=== PATIENT | male | born 1995 | race Caucasian/White ===

== ENCOUNTER 2018-10-17 21:36 | Emergency (ER) | payer OTHER ==
[2018-10-17 21:57] VITALS: RESP 18
--- NOTE | 2018-10-17 22:45 | ED ---
Psych HPI - General Chief Complaint: Psychiatric Symptoms Stated Complaint: Mental Health Time Seen by Provider: 10/17/18 22:02 Source: patient Mode of arrival: ambulatory - History of Present Illness Initial Comments: 23-year-old male patient presents to the emergency department today for complaints of increased depression and anxiety. Patient states that he was diagnosed several years ago with depression, bipolar, and schizophrenia. States his been 3 years since his taken any medication for these conditions. Patient states that over the last couple of weeks his symptoms have been worsening. States he is having increasing frequency of suicidal ideation. States that he cannot see a gun without thinking of killing himself with it. Patient states he does not have guns in his home however his) to have them he does have access to them. He denies any alcohol or drug use. States that he does occasionally have auditory hallucinations this on my conversations other people are having. States that he does often see a shadow a figure out of the corner of his eye that he believes is a visual hallucination. States he is having difficulty sleeping due to racing thoughts. Denies any current physical symptoms or concerns. - Related Data Home Medications Medication Instructions Recorded Confirmed Sulfamethox-Tmp 800-160Mg [Bactrim 2 tab PO Q12HR 05/28/16 05/28/16 Ds] Allergies Allergy/AdvReac Type Severity Reaction Status Date / Time ceftriaxone sodium Allergy Swelling Verified 05/28/16 20:14 [From Rocephin] azithromycin AdvReac Unknown Verified 05/28/16 20:14 Review of Systems ROS Statement: Those systems with pertinent positive or pertinent negative responses have been documented in the HPI. ROS Other: All systems not noted in ROS Statement are negative. Past Medical History Past Medical History: No Reported History History of Any Multi-Drug Resistant Organisms: None Reported Additional Past Surgical History / Comment(s): bilateral knee arthroscopically for torn meniscus Past Psychological History: Bipolar, Depression, Schizophrenia Smoking Status: Current every day smoker Past Alcohol Use History: Abuse, Daily Past Drug Use History: Marijuana - Past Family History Father Family Medical History: Unable to Obtain Additional Family Medical History / Comment(s): Father is 42 years of age and has questionable bipolar disorder. Patient states he has anger issues. Mother Family Medical History: Unable to Obtain Additional Family Medical History / Comment(s): Mother is 37 years old and has had problems with bowel surgeries, liver failure, bipolar disorder. Brother(s) Additional Family Medical History / Comment(s): Patient has 3 half brothers and 4 half-sisters. Patient states they all have bipolar disorder, schizophrenia or depression. She does not have any children of his own. General Exam Limitations: no limitations General appearance: alert, in no apparent distress, other (This is a well- developed, well-nourished male patient in no acute distress. Vital signs upon presentation are temperature 98.9F, pulse 108, respirations 18, blood pressure 182/136, pulse ox 98% on room air.) Eye exam: Present: normal appearance, PERRL, EOMI. Absent: scleral icterus, conjunctival injection, periorbital swelling Respiratory exam: Present: normal lung sounds bilaterally Cardiovascular Exam: Present: regular rate, normal rhythm, normal heart sounds. Absent: systolic murmur, diastolic murmur, rubs, gallop, clicks Neurological exam: Present: alert, oriented X3, CN II-XII intact Psychiatric exam: Present: normal affect, normal mood Skin exam: Present: warm, dry, intact, normal color. Absent: rash Course Vital Signs 10/17/18 10/18/18 21:51 00:51 Temperature 98.9 F 97.7 F Pulse Rate 108 H 70 Respiratory 18 18 Rate Blood Pressure 182/136 133/72 O2 Sat by Pulse 98 97 Oximetry Medical Decision Making - Medical Decision Making 23-year-old male patient presents to the emergency department today for evaluation of suicidal ideation and increased depression. Physical examination was unremarkable. Patient was seen and evaluated by emergency psychiatric services. It is felt that he does not meet inpatient criteria at this time and is safe for discharge home. I did have a discussion with the patient, he is able to contract for safety. He does have the phone number for [facility] and does plan to call Friday morning for intake. Return parameters were discussed in detail. He verbalizes understanding and agrees with this plan. - Lab Data Lab Results 10/17/18 Range/Units 20:34 Urine Opiates Screen Not Detected (NotDetected) Ur Oxycodone Screen Not Detected (NotDetected) Urine Methadone Screen Not Detected (NotDetected) Ur Propoxyphene Screen Not Detected (NotDetected) Ur Barbiturates Screen Not Detected (NotDetected) U Tricyclic Antidepress Not Detected (NotDetected) Ur Phencyclidine Scrn Not Detected (NotDetected) Ur Amphetamines Screen Detected H (NotDetected) U Methamphetamines Scrn Detected H (NotDetected) U Benzodiazepines Scrn Detected H (NotDetected) Urine Cocaine Screen Not Detected (NotDetected) U Marijuana (THC) Screen Detected H (NotDetected) Disposition Clinical Impression: Suicidal ideation, Depression Disposition: HOME SELF-CARE Condition: Good Instructions: Depression (ED), Suicide Prevention (ED) Additional Instructions: Follow-up outpatient with complete mental health as you have planned. Return immediately for any new, worsening, or concerning symptoms. Is patient prescribed a controlled substance at d/c from ED?: No Referrals: None,Stated [Primary Care Provider] - 1-2 days Time of Disposition: 00:42
[2018-10-17 22:54] LABS: Amphetamine Screen,Urine Detected (NotDetected); Barbiturate Screen,Urine Not Detected (NotDetected); Benzodiazepines Screen,Urine Detected (NotDetected); Cocaine Screen,Urine Not Detected (NotDetected); Methadone Screen, Urine Not Detected (NotDetected); Opiate Screen,Urine Not Detected (NotDetected); Oxycodone Screen, Urine Not Detected (NotDetected); Phencyclidine Screen,Urine Not Detected (NotDetected); Tricyclic Antidepressant,Urine Not Detected (NotDetected); Urn Cannabinoid Scrn Detected (NotDetected)
[2018-10-18 00:52] VITALS: BP 133/72; PULSE 70; TEMP 97.7
== END 2018-10-18 00:52 | disposition home or self-care (01) ==
LOC: EC 21:36
DX: F32.9 Major depressive disorder, single episode, unspecified (principal); R45.851 Suicidal ideations; F17.200 Nicotine dependence, unspecified, uncomplicated; Z88.1 Allergy status to other antibiotic agents
CPT/HCPCS: 80306; 99284

== ENCOUNTER 2018-10-21 21:55 | Emergency (ER) | payer OTHER ==
--- NOTE | 2018-10-21 22:23 | ED ---
Psych HPI - General Chief Complaint: Psychiatric Symptoms Stated Complaint: depression Time Seen by Provider: 10/21/18 22:22 Source: patient, RN notes reviewed, old records reviewed Mode of arrival: ambulatory - History of Present Illness Initial Comments: This is a 20-year-old male the ER for evasive acute psychosis, patient comes in today, doesn't want to harm to kill himself. Seen in ER recently for same issues, denies recent drug or alcohol abuse MD Complaint: suicidal ideation, other (Psychosis) -: unknown Associated Psychiatric Symptoms: depression History of same: Yes Quality: constant Improves With: none Worsens With: none Context: new medication(s) Associated Symptoms: denies other symptoms Treatments Prior to Arrival: none If Self Harm: admits thoughts of self harm, self-inflicted trauma - Related Data Home Medications Medication Instructions Recorded Confirmed No Known Home Medications 10/21/18 10/21/18 Allergies Allergy/AdvReac Type Severity Reaction Status Date / Time ceftriaxone sodium Allergy Swelling Verified 10/21/18 22:28 [From Rocephin] azithromycin AdvReac Unknown Verified 10/21/18 22:28 Review of Systems ROS Statement: Those systems with pertinent positive or pertinent negative responses have been documented in the HPI. ROS Other: All systems not noted in ROS Statement are negative. Past Medical History Past Medical History: No Reported History History of Any Multi-Drug Resistant Organisms: None Reported Additional Past Surgical History / Comment(s): bilateral knee arthroscopically for torn meniscus Past Psychological History: Bipolar, Depression, Schizophrenia Smoking Status: Current every day smoker Past Alcohol Use History: None Reported Past Drug Use History: Cocaine, Marijuana, Methamphetamine, Prescription Drug Abuse - Past Family History Father Family Medical History: Unable to Obtain Additional Family Medical History / Comment(s): Father is 42 years of age and has questionable bipolar disorder. Patient states he has anger issues. Mother Family Medical History: Unable to Obtain Additional Family Medical History / Comment(s): Mother is 37 years old and has had problems with bowel surgeries, liver failure, bipolar disorder. Brother(s) Additional Family Medical History / Comment(s): Patient has 3 half brothers and 4 half-sisters. Patient states they all have bipolar disorder, schizophrenia or depression. She does not have any children of his own. General Exam Limitations: no limitations General appearance: alert, in no apparent distress Head exam: Present: atraumatic, normocephalic, normal inspection Eye exam: Present: normal appearance, PERRL, EOMI. Absent: scleral icterus, conjunctival injection, periorbital swelling ENT exam: Present: normal exam, mucous membranes moist Neck exam: Present: normal inspection. Absent: tenderness, meningismus, lymphadenopathy Respiratory exam: Present: normal lung sounds bilaterally. Absent: respiratory distress, wheezes, rales, rhonchi, stridor Cardiovascular Exam: Present: regular rate, normal rhythm, normal heart sounds. Absent: systolic murmur, diastolic murmur, rubs, gallop, clicks GI/Abdominal exam: Present: soft, normal bowel sounds. Absent: distended, tenderness, guarding, rebound, rigid Extremities exam: Present: normal inspection, full ROM, normal capillary refill. Absent: tenderness, pedal edema, joint swelling, calf tenderness Back exam: Present: normal inspection Neurological exam: Present: alert, oriented X3, CN II-XII intact Psychiatric exam: Present: normal affect, normal mood Skin exam: Present: warm, dry, intact, normal color. Absent: rash Course Vital Signs 10/21/18 10/22/18 22:06 03:47 Temperature 98.6 F 98.2 F Pulse Rate 98 89 Respiratory 18 16 Rate Blood Pressure 117/77 119/72 O2 Sat by Pulse 100 100 Oximetry - Reevaluation(s) Reevaluation #1: 10/21/18 22:23 Medical clear for psychiatric evaluation Medical Decision Making - Medical Decision Making 20 female for evaluation by psychiatry, seen and evaluated, will transfer for inpatient psychiatric treatment - Lab Data Result diagrams: 10/22/18 02:16 10/22/18 00:55 Lab Results 10/21/18 10/22/18 10/22/18 Range/Units 22:45 00:55 02:16 WBC 10.9 H (3.8-10.6) k/uL RBC 5.39 (4.30-5.90) m/uL Hgb 15.6 (13.0-17.5) gm/dL Hct 46.6 (39.0-53.0) % MCV 86.4 (80.0-100.0) fL MCH 29.0 (25.0-35.0) pg MCHC 33.6 (31.0-37.0) g/dL RDW 12.6 (11.5-15.5) % Plt Count 285 (150-450) k/uL Neutrophils % 66 % Lymphocytes % 24 % Monocytes % 5 % Eosinophils % 2 % Basophils % 0 % Neutrophils # 7.3 (1.3-7.7) k/uL Lymphocytes # 2.6 (1.0-4.8) k/uL Monocytes # 0.6 (0-1.0) k/uL Eosinophils # 0.2 (0-0.7) k/uL Basophils # 0.1 (0-0.2) k/uL Sodium 141 (137-145) mmol/L Potassium 3.9 (3.5-5.1) mmol/L Chloride 104 (98-107) mmol/L Carbon Dioxide 26 (22-30) mmol/L Anion Gap 11 mmol/L BUN 13 (9-20) mg/dL Creatinine 0.85 (0.66-1.25) mg/dL Est GFR (CKD-EPI)AfAm >90 (>60 ml/min/1.73 sqM) Est GFR (CKD-EPI)NonAf >90 (>60 ml/min/1.73 sqM) Glucose 94 (74-99) mg/dL Calcium 9.9 (8.4-10.2) mg/dL Total Bilirubin 0.6 (0.2-1.3) mg/dL AST 20 (17-59) U/L ALT 24 (21-72) U/L Alkaline Phosphatase 65 (38-126) U/L Total Protein 7.6 (6.3-8.2) g/dL Albumin 4.7 (3.5-5.0) g/dL Salicylates <1.0 mg/dL Urine Opiates Screen Not Detected (NotDetected) Ur Oxycodone Screen Not Detected (NotDetected) Urine Methadone Screen Not Detected (NotDetected) Ur Propoxyphene Screen Not Detected (NotDetected) Acetaminophen <10.0 ug/mL Ur Barbiturates Screen Not Detected (NotDetected) U Tricyclic Antidepress Not Detected (NotDetected) Ur Phencyclidine Scrn Not Detected (NotDetected) Ur Amphetamines Screen Detected H (NotDetected) U Methamphetamines Scrn Detected H (NotDetected) U Benzodiazepines Scrn Detected H (NotDetected) Urine Cocaine Screen Not Detected (NotDetected) U Marijuana (THC) Screen Detected H (NotDetected) Serum Alcohol <10 mg/dL Disposition Clinical Impression: Depression, Suicidal ideation, Psychosis Disposition: TRANSFER TO PSYCH HOSP/UNIT Condition: Fair Is patient prescribed a controlled substance at d/c from ED?: No Referrals: None,Stated [Primary Care Provider] - 1-2 days
[2018-10-21 23:08] LABS: Amphetamine Screen,Urine Detected (NotDetected); Barbiturate Screen,Urine Not Detected (NotDetected); Benzodiazepines Screen,Urine Detected (NotDetected); Cocaine Screen,Urine Not Detected (NotDetected); Methadone Screen, Urine Not Detected (NotDetected); Opiate Screen,Urine Not Detected (NotDetected); Oxycodone Screen, Urine Not Detected (NotDetected); Phencyclidine Screen,Urine Not Detected (NotDetected); Tricyclic Antidepressant,Urine Not Detected (NotDetected); Urn Cannabinoid Scrn Detected (NotDetected)
[2018-10-22 01:56] LABS: ALT 24 U/L (21-72); AST 20 U/L (17-59); Acetaminophen <10.0 ug/mL; Albumin 4.7 g/dL (3.5-5.0); Alcohol <10 mg/dL; Alkaline Phosphatase 65 U/L (38-126); Anion Gap 11 mmol/L; Blood Urea Nitrogen 13 mg/dL (9-20); Calcium 9.9 mg/dL (8.4-10.2); Carbon Dioxide 26 mmol/L (22-30); Chloride 104 mmol/L (98-107); Glucose 94 mg/dL (74-99); Potassium 3.9 mmol/L (3.5-5.1); Salicylate <1.0 mg/dL; Sodium 141 mmol/L (137-145); Total Bilirubin 0.6 mg/dL (0.2-1.3); Total Protein 7.6 g/dL (6.3-8.2)
[2018-10-22 02:32] LABS: Basophils # (A) 0.1 k/uL (0-0.2); Basophils % (A) 0 %; Eosinophils # (A) 0.2 k/uL (0-0.7); Eosinophils % (A) 2 %; HCT 46.6 % (39.0-53.0); HGB 15.6 gm/dL (13.0-17.5); Lymphocytes # (A) 2.6 k/uL (1.0-4.8); Lymphocytes % (A) 24 %; MCHC 33.6 g/dL (31.0-37.0); MCV 86.4 fL (80.0-100.0); Mean Platelet Volume 6.6; Monocytes # (A) 0.6 k/uL (0-1.0); Monocytes % (A) 5 %; Neutrophils # (A) 7.3 k/uL (1.3-7.7); Neutrophils % (A) 66 %; Platelet Count 285 k/uL (150-450); RBC 5.39 m/uL (4.30-5.90); RDW 12.6 % (11.5-15.5); WBC 10.9 k/uL (3.8-10.6)
[2018-10-22 03:48] VITALS: BP 119/72; PULSE 89; RESP 16; TEMP 98.2
== END 2018-10-22 04:23 ==
LOC: EC 21:55
DX: F32.9 Major depressive disorder, single episode, unspecified (principal); F29 Unspecified psychosis not due to a substance or known physiological condition; R45.851 Suicidal ideations; F20.9 Schizophrenia, unspecified; F17.200 Nicotine dependence, unspecified, uncomplicated; Z81.8 Family history of other mental and behavioral disorders; Z88.1 Allergy status to other antibiotic agents
CPT/HCPCS: 36415; 80053; 80306; 80320; 83520; 85025; 99285

== ENCOUNTER 2020-10-17 12:42 | Emergency (ER) | payer BC, OTHER ==
[2020-10-17 12:46] VITALS: BP 127/72; PULSE 111; RESP 18; TEMP 98.7
--- NOTE | 2020-10-17 13:42 | ED ---
Male Urogenital HPI - General Chief complaint: Urogenital Stated complaint: L Testicle Pain Time Seen by Provider: 10/17/20 12:47 Source: patient, RN notes reviewed Mode of arrival: ambulatory Limitations: no limitations - History of Present Illness Initial comments: 25-year-old male presents emergency Department with chief complaint of left testicular pain. Patient states that it started primary yesterday but has been on and off. He states he feels slightly swollen. He has no complaints of dysuria hematuria and denies any concerns for STDs. Patient states that he had no trauma denies fevers or chills. - Related Data Previous Rx's Medication Instructions Recorded Ibuprofen [Motrin] 600 mg PO Q8HR PRN #20 tab 10/17/20 Allergies Allergy/AdvReac Type Severity Reaction Status Date / Time ceftriaxone sodium Allergy Swelling Verified 10/17/20 12:46 [From Rocephin] azithromycin AdvReac Unknown Verified 10/17/20 12:46 Review of Systems ROS Statement: Those systems with pertinent positive or pertinent negative responses have been documented in the HPI. ROS Other: All systems not noted in ROS Statement are negative. Past Medical History Past Medical History: No Reported History History of Any Multi-Drug Resistant Organisms: None Reported Additional Past Surgical History / Comment(s): bilateral knee arthroscopically for torn meniscus Past Psychological History: Bipolar, Depression, Schizophrenia Smoking Status: Current every day smoker Past Alcohol Use History: None Reported Past Drug Use History: Marijuana - Past Family History Father Family Medical History: Unable to Obtain Additional Family Medical History / Comment(s): Father is 42 years of age and has questionable bipolar disorder. Patient states he has anger issues. Mother Family Medical History: Unable to Obtain Additional Family Medical History / Comment(s): Mother is 37 years old and has had problems with bowel surgeries, liver failure, bipolar disorder. Brother(s) Additional Family Medical History / Comment(s): Patient has 3 half brothers and 4 half-sisters. Patient states they all have bipolar disorder, schizophrenia or depression. She does not have any children of his own. General Exam Limitations: no limitations General appearance: alert, in no apparent distress Head exam: Present: atraumatic, normocephalic, normal inspection Respiratory exam: Present: normal lung sounds bilaterally. Absent: respiratory distress, wheezes, rales, rhonchi, stridor Cardiovascular Exam: Present: normal rhythm, tachycardia, normal heart sounds. Absent: systolic murmur, diastolic murmur, rubs, gallop, clicks GI/Abdominal exam: Present: soft, normal bowel sounds. Absent: distended, te nderness, guarding, rebound, rigid exam: Present: testicular tenderness, circumcision. Absent: normal inspection, urethral discharge, scrotal swelling, vertical testicular lie Course Vital Signs 10/17/20 12:43 Temperature 98.7 F Pulse Rate 111 H Respiratory 18 Rate Blood Pressure 127/72 O2 Sat by Pulse 97 Oximetry Medical Decision Making - Medical Decision Making 25-year-old male presented for left testicular pain SHOWS EVIDENCE OF VARICOCELE. PATIENT PROVIDED SUPPORTIVE TREATMENT NO FOLLOW-UP TO UROLOGY IF NO RELIEF. Disposition Clinical Impression: Left varicocele Disposition: HOME SELF-CARE Condition: Stable Instructions (If sedation given, give patient instructions): Varicocele (ED) Additional Instructions: Please return to the Emergency Department if symptoms worsen or any other concerns. Prescriptions: Ibuprofen [Motrin] 600 mg PO Q8HR PRN #20 tab PRN Reason: Pain Is patient prescribed a controlled substance at d/c from ED?: No Referrals: None,Stated [Primary Care Provider] - 1-2 days Ming Faustin MD [STAFF PHYSICIAN] - 1-2 days Time of Disposition: 13:58
--- NOTE | 2020-10-17 13:51 | US ---
EXAMINATION TYPE: US scrotum with doppler. Grayscale and color Doppler Duplex imaging performed of dc garcia scrotum. DATE OF EXAM: 10/17/2020 COMPARISON: NONE CLINICAL HISTORY: pain. intermittent left testicle pain for 2 months, severe pain for 1 day EXAM MEASUREMENTS: TESTICLES: Right Testicle: 3.9 x 2.0 x 2.7 cm Left Testicle: 3.8 x 2.4 x 2.8 cm EPIDIDYMIS HEAD: Right Epididymis: 1.4cm Left Epididymis: 1.4cm Doppler performed to assess for testicular vascularity; good bilateral color flow and waveforms are s een. There is no evidence of testicular torsion. Presence of hydroceles: no significant fluid collection seen at this time Presence of varicoceles: yes, left testicle Septated cystic area left epididymis = 1.4 x 0.9 x 1.7cm IMPRESSION: Left-sided varicocele noted.
[2020-10-17 14:14] LABS: Appearance,Urine Clear (Clear); Bilirubin,Urine Negative (Negative); Blood,Urine Negative (Negative); Color,Urine Yellow; Glucose,Urine (UA) Negative (Negative); Ketones,Urine Negative (Negative); Leukocyte Esterase,Urine Negative (Negative); Nitrite,Urine Negative (Negative); PH, Urine 6.5 (5.0-8.0); Protein,Urine Negative (Negative); Specific Gravity,Urine 1.011 (1.001-1.035); Urobilinogen,Urine <2.0 mg/dL (<2.0)
== END 2020-10-17 15:22 | disposition home or self-care (01) ==
LOC: EC 12:42
DX: I86.1 Scrotal varices (principal); F17.200 Nicotine dependence, unspecified, uncomplicated; Z88.1 Allergy status to other antibiotic agents
CPT/HCPCS: 76870; 81003; 93975; 99284

== ENCOUNTER 2021-08-09 21:42 | Emergency (ER) | payer BC ==
[2021-08-09 21:58] VITALS: RESP 18; TEMP 98.7
[2021-08-09] MEDS ORDERED: KETOROLAC 15 MG/ML 1 ML VIAL IVP STA (22:22)
[2021-08-09] MEDS ORDERED: SODIUM CHLORIDE 0.9% 1,000 ML IV STA (22:22)
[2021-08-09] MEDS ORDERED: PANTOPRAZOLE 40 MG/10 ML VIAL IVP STA (22:22)
--- NOTE | 2021-08-09 22:34 | ED ---
Abdominal Pain HPI - General Chief Complaint: Abdominal Pain Stated Complaint: Abd Pain Time Seen by Provider: 08/09/21 21:59 Source: patient, RN notes reviewed, old records reviewed Mode of arrival: ambulatory Limitations: no limitations - History of Present Illness Initial Comments: This is a 26-year-old male to the emergency department today. If evaluation abdominal pain left-sided abdominal pain anterior abdominal pain into his flank. Worsening moves around. Patient is no medical history takes no medications no significant surgical history. No recent fevers no nausea no vomiting no diarrhea. No dysuria. No blood in the urine or stool. MD Complaint: abdominal pain (Generalized to left-sided) -: hour(s) Location: LLQ, L flank Radiation: back Migration to: no migration Severity: moderate Severity scale (1-10): 4 Quality: cramping Consistency: intermittent Improves With: nothing Worsens With: movement Context: other (none) Associated Symptoms: nausea Treatments Prior to Arrival: other (none) - Related Data Previous Rx's Medication Instructions Recorded Ibuprofen [Motrin] 600 mg PO Q8HR PRN #20 tab 10/17/20 Allergies Allergy/AdvReac Type Severity Reaction Status Date / Time ceftriaxone sodium Allergy Swelling Verified 08/09/21 21:59 [From Rocephin] azithromycin AdvReac Unknown Verified 08/09/21 21:59 Review of Systems ROS Statement: Those systems with pertinent positive or pertinent negative responses have been documented in the HPI. ROS Other: All systems not noted in ROS Statement are negative. Past Medical History Past Medical History: No Reported History History of Any Multi-Drug Resistant Organisms: None Reported Additional Past Surgical History / Comment(s): bilateral knee arthroscopically for torn meniscus Past Psychological History: Bipolar, Depression, Schizophrenia Smoking Status: Current every day smoker Past Alcohol Use History: None Reported Past Drug Use History: Marijuana - Past Family History Father Family Medical History: Unable to Obtain Additional Family Medical History / Comment(s): Father is 42 years of age and has questionable bipolar disorder. Patient states he has anger issues. Mother Family Medical History: Unable to Obtain Additional Family Medical History / Comment(s): Mother is 37 years old and has had problems with bowel surgeries, liver failure, bipolar disorder. Brother(s) Additional Family Medical History / Comment(s): Patient has 3 half brothers and 4 half-sisters. Patient states they all have bipolar disorder, schizophrenia or depression. She does not have any children of his own. General Exam Limitations: no limitations General appearance: alert, in no apparent distress Head exam: Present: atraumatic, normocephalic, normal inspection Eye exam: Present: normal appearance, PERRL, EOMI. Absent: scleral icterus, conjunctival injection, periorbital swelling ENT exam: Present: normal exam, mucous membranes moist Neck exam: Present: normal inspection. Absent: tenderness, meningismus, lymphadenopathy Respiratory exam: Present: normal lung sounds bilaterally. Absent: respiratory distress, wheezes, rales, rhonchi, stridor Cardiovascular Exam: Present: regular rate, normal rhythm, normal heart sounds. Absent: systolic murmur, diastolic murmur, rubs, gallop, clicks GI/Abdominal exam: Present: soft, tenderness, normal bowel sounds. Absent: distended, guarding, rebound, rigid Extremities exam: Present: normal inspection, full ROM, normal capillary refill. Absent: tenderness, pedal edema, joint swelling, calf tenderness Back exam: Present: normal inspection Neurological exam: Present: alert, oriented X3, CN II-XII intact Psychiatric exam: Present: normal affect, normal mood Skin exam: Present: warm, dry, intact, normal color. Absent: rash Course Vital Signs 08/09/21 08/10/21 21:56 00:29 Temperature 98.7 F Pulse Rate 95 84 Respiratory 18 18 Rate Blood Pressure 159/81 114/76 O2 Sat by Pulse 97 99 Oximetry - Reevaluation(s) Reevaluation #1: Medical record is reviewed Patient symptoms are improved here in the emergency department Patient informed of results and questions answered Patient is in no acute distress Medical Decision Making - Medical Decision Making 26 male with nonspecific abdominal pain. The pain is resolved currently with normal lab tests and computed tomography scan. Patient can be discharged home - Lab Data Result diagrams: 08/09/21 23:28 08/09/21 23:28 Lab Results 08/09/21 08/09/21 08/09/21 Range/Units 23:28 23:28 23:30 WBC 12.4 H (3.8-10.6) k/uL RBC 5.07 (4.30-5.90) m/uL Hgb 15.6 (13.0-17.5) gm/dL Hct 44.3 (39.0-53.0) % MCV 87.3 (80.0-100.0) fL MCH 30.7 (25.0-35.0) pg MCHC 35.2 (31.0-37.0) g/dL RDW 12.3 (11.5-15.5) % Plt Count 285 (150-450) k/uL MPV 7.1 Neutrophils % 71 % Lymphocytes % 21 % Monocytes % 5 % Eosinophils % 1 % Basophils % 0 % Neutrophils # 8.9 H (1.3-7.7) k/uL Lymphocytes # 2.6 (1.0-4.8) k/uL Monocytes # 0.6 (0-1.0) k/uL Eosinophils # 0.1 (0-0.7) k/uL Basophils # 0.0 (0-0.2) k/uL Sodium 139 (137-145) mmol/L Potassium 3.6 (3.5-5.1) mmol/L Chloride 102 (98-107) mmol/L Carbon Dioxide 26 (22-30) mmol/L Anion Gap 11 mmol/L BUN 14 (9-20) mg/dL Creatinine 0.83 (0.66-1.25) mg/dL Est GFR (CKD-EPI)AfAm >90 (>60 ml/min/1.73 sqM) Est GFR (CKD-EPI)NonAf >90 (>60 ml/min/1.73 sqM) Glucose 95 (74-99) mg/dL Calcium 10.0 (8.4-10.2) mg/dL Total Bilirubin 0.7 (0.2-1.3) mg/dL AST 27 (17-59) U/L ALT 15 (4-49) U/L Alkaline Phosphatase 63 (38-126) U/L Total Protein 7.6 (6.3-8.2) g/dL Albumin 4.8 (3.5-5.0) g/dL Amylase 64 (30-110) U/L Lipase 29 (23-300) U/L Urine Color Yellow Urine Appearance Cloudy (Clear) Urine pH 7.0 (5.0-8.0) Ur Specific [place] 1.024 (1.001-1.035) Urine Protein Trace H (Negative) Urine Glucose (UA) Negative (Negative) Urine Ketones 1+ H (Negative) Urine Blood Negative (Negative) Urine Nitrite Negative (Negative) Urine Bilirubin Negative (Negative) Urine Urobilinogen <2.0 (<2.0) mg/dL Ur Leukocyte Esterase Trace H (Negative) Urine RBC 1 (0-5) /hpf Urine WBC 1 (0-5) /hpf Amorphous Sediment Occasional H (None) /hpf Urine Mucus Many H (None) /hpf - Radiology Data Radiology results: report reviewed (CT abdomen and pelvis is negative for acute disease), image reviewed Disposition Clinical Impression: Abdominal pain Disposition: HOME SELF-CARE Condition: Good Instructions (If sedation given, give patient instructions): Abdominal Pain (ED) Is patient prescribed a controlled substance at d/c from ED?: No Referrals: None,Stated [Primary Care Provider] - 1-2 days
--- NOTE | 2021-08-09 23:37 | CT ---
EXAMINATION TYPE: CT abdomen pelvis wo con DATE OF EXAM: 08/09/2021 COMPARISON: 02/16/2013 HISTORY: left center abd pain CT DLP: 425.7 mGycm Automated exposure control for dose reduction was used. Images obtained from the diaphragm to the floor the pelvis with no contrast. Lung bases are clear. There is no pleural effusion. Heart size is normal. There is no pericardial eff usion. Liver spleen stomach pancreas gallbladder appear normal. The bile ducts are not dilated. There is no adrenal mass. Kidneys have normal size and contour. There is no hydronephrosis. Ureters a re not dilated. There is no retroperitoneal adenopathy. Bladder distends smoothly. There is no free f luid in the pelvis. There is no evidence of a pelvic mass. There is no mesenteric edema. There is no ascites or free air. There is no evidence of a bowel obstru ction. Appendix not clearly seen. There is no sign of thickened appendix. Lumbar vertebra have normal spacing and alignment. Posterior elements are intact. There is no bismark annetta fracture. Bony pelvis is intact. Hip joints are intact. IMPRESSION: Negative CT scan abdomen and pelvis. No sign of appendicitis. No adverse change compared to old exam.
[2021-08-09 23:47] LABS: Basophils % (A) 0 %; Eosinophils # (A) 0.1 k/uL (0-0.7); Eosinophils % (A) 1 %; HCT 44.3 % (39.0-53.0); HGB 15.6 gm/dL (13.0-17.5); Lymphocytes # (A) 2.6 k/uL (1.0-4.8); Lymphocytes % (A) 21 %; MCH 30.7 pg (25.0-35.0); MCHC 35.2 g/dL (31.0-37.0); MCV 87.3 fL (80.0-100.0); Mean Platelet Volume 7.1; Monocytes # (A) 0.6 k/uL (0-1.0); Monocytes % (A) 5 %; Neutrophils # (A) 8.9 k/uL (1.3-7.7); Neutrophils % (A) 71 %; Platelet Count 285 k/uL (150-450); RBC 5.07 m/uL (4.30-5.90); RDW 12.3 % (11.5-15.5); WBC 12.4 k/uL (3.8-10.6)
[2021-08-10] LABS: ALT 15 U/L (4-49); AST 27 U/L (17-59); African American GFR (CKD) >90 (>60 ml/min/1.73 sqM); Albumin 4.8 g/dL (3.5-5.0); Alkaline Phosphatase 63 U/L (38-126); Amylase 64 U/L (30-110); Anion Gap 11 mmol/L; Blood Urea Nitrogen 14 mg/dL (9-20); Carbon Dioxide 26 mmol/L (22-30); Chloride 102 mmol/L (98-107); Glucose 95 mg/dL (74-99); Lipase 29 U/L (23-300); Non-African American GFR(CKD) >90 (>60 ml/min/1.73 sqM); Potassium 3.6 mmol/L (3.5-5.1); Sodium 139 mmol/L (137-145); Total Bilirubin 0.7 mg/dL (0.2-1.3); Total Protein 7.6 g/dL (6.3-8.2)
[2021-08-10 00:15] LABS: Amorphous Sediment,Urine Occasional /hpf; Appearance,Urine Cloudy (Clear); Bilirubin,Urine Negative (Negative); Blood,Urine Negative (Negative); Color,Urine Yellow; Glucose,Urine (UA) Negative (Negative); Ketones,Urine 1+ (Negative); Leukocyte Esterase,Urine Trace (Negative); Mucus,Urine Many /hpf; Nitrite,Urine Negative (Negative); Protein,Urine Trace (Negative); RBC,Urine 1 /hpf (0-5); Specific Gravity,Urine 1.024 (1.001-1.035); Urobilinogen,Urine <2.0 mg/dL (<2.0); WBC,Urine 1 /hpf (0-5)
[2021-08-10 00:31] VITALS: BP 114/76; PULSE 84
== END 2021-08-10 00:32 | disposition home or self-care (01) ==
LOC: EC 21:42
DX: R10.32 Left lower quadrant pain (principal); F31.9 Bipolar disorder, unspecified; F20.9 Schizophrenia, unspecified; F17.200 Nicotine dependence, unspecified, uncomplicated; F12.90 Cannabis use, unspecified, uncomplicated; Z88.1 Allergy status to other antibiotic agents
CPT/HCPCS: 99284; 96374; 96375; 96361; 36415; 80053; 82150; 83690; 85025; 81001; 74176; J1885; C9113

== ENCOUNTER 2022-03-28 17:01 | Emergency (ER) | payer BC ==
[2022-03-28 17:53] VITALS: BP 116/67; PULSE 67; RESP 16; TEMP 98
--- NOTE | 2022-03-28 18:21 | XR ---
EXAMINATION TYPE: XR hand complete RT DATE OF EXAM: 03/28/2022 6:03 PM INDICATION: Patient age:Male; 27 years old; Reason for study: pain/swelling ; . COMPARISON: None TECHNIQUE: 3 views of the right hand were obtained. FINDINGS: Normal alignment of the visualized joints. No acute osseous pathology is identified. There is soft tissue swelling around the hand. No subcutaneous lucencies to suggest gas. IMPRESSION: Soft tissue swelling remain without evidence for acute fracture.
--- NOTE | 2022-03-28 19:41 | ED ---
Upper Extremity HPI - General Chief Complaint: Extremity Injury, Upper Stated Complaint: R hand injury Time Seen by Provider: 03/28/22 19:34 Source: patient Mode of arrival: ambulatory Limitations: no limitations - History of Present Illness Initial Comments: This is a pleasant [id number] 27-year-old male who punched a door yesterday when he was angry. Patient complaining of pain near the third metacarpophalangeal joint of the right hand. Pain is exacerbated by movement and palpation. No other injuries. No distal paresthesias. No dysarthria approximately injuries. No headache, no fever or chills, no changes in vision or hearing, no sore throat or difficulty with speech, no neck pain, no chest pain or shortness of breath, no abdominal pain, no nausea or vomiting, no changes in urination or bowel movements, no numbness or tingling, no skin rashes or lesions. MD Complaint: Injury to:: right - Related Data Previous Rx's Medication Instructions Recorded Ibuprofen [Motrin] 600 mg PO Q8HR PRN #20 tab 10/17/20 Acetaminophen [Tylenol] 500 mg PO Q4-6H PRN #24 tab 03/28/22 Ibuprofen [Motrin] 600 mg PO Q8HR PRN #30 tab 03/28/22 Allergies Allergy/AdvReac Type Severity Reaction Status Date / Time ceftriaxone sodium Allergy Swelling Verified 08/09/21 21:59 [From Rocephin] azithromycin AdvReac Unknown Verified 08/09/21 21:59 Review of Systems ROS Statement: Those systems with pertinent positive or pertinent negative responses have been documented in the HPI. ROS Other: All systems not noted in ROS Statement are negative. Past Medical History Past Medical History: No Reported History History of Any Multi-Drug Resistant Organisms: None Reported Additional Past Surgical History / Comment(s): bilateral knee arthroscopically for torn meniscus Past Psychological History: Bipolar, Depression, Schizophrenia Smoking Status: Current every day smoker Past Alcohol Use History: None Reported Past Drug Use History: Marijuana - Past Family History Father Family Medical History: Unable to Obtain Additional Family Medical History / Comment(s): Father is 42 years of age and has questionable bipolar disorder. Patient states he has anger issues. Mother Family Medical History: Unable to Obtain Additional Family Medical History / Comment(s): Mother is 37 years old and has had problems with bowel surgeries, liver failure, bipolar disorder. Brother(s) Additional Family Medical History / Comment(s): Patient has 3 half brothers and 4 half-sisters. Patient states they all have bipolar disorder, schizophrenia or depression. She does not have any children of his own. General Exam Limitations: no limitations General appearance: alert, in no apparent distress Head exam: Present: atraumatic, normocephalic, normal inspection Eye exam: Present: normal appearance, PERRL, EOMI. Absent: scleral icterus, conjunctival injection, periorbital swelling ENT exam: Present: normal exam, mucous membranes moist Neck exam: Present: normal inspection. Absent: tenderness, meningismus, lymphadenopathy Respiratory exam: Present: normal lung sounds bilaterally. Absent: respiratory distress, wheezes, rales, rhonchi, stridor Cardiovascular Exam: Present: regular rate, normal rhythm, normal heart sounds. Absent: systolic murmur, diastolic murmur, rubs, gallop, clicks GI/Abdominal exam: Present: soft, normal bowel sounds. Absent: distended, tenderness, guarding, rebound, rigid Extremities exam: Present: full ROM (With pain), tenderness (Dorsum of the right hand over the third MCP joint), normal capillary refill, calf tenderness, other (Capillary refill less than 2 seconds. Pulses are intact. No crepitus.). Absent: normal inspection (Swelling noted, no break in skin integrity), joint swelling Back exam: Present: normal inspection Neurological exam: Present: alert, oriented X3, CN II-XII intact Psychiatric exam: Present: normal affect, normal mood Skin exam: Present: warm, dry, intact, normal color. Absent: rash Course Vital Signs 03/28/22 17:49 Temperature 98 F Pulse Rate 67 Respiratory 16 Rate Blood Pressure 116/67 O2 Sat by Pulse 97 Oximetry Medical Decision Making - Medical Decision Making She presents with symptomology consistent with a right hand contusion. We did discuss possibility of occult fracture or ligamentous injury. Conservative therapy discussed. One-handed duty written. Patient given follow-up for orthopedics. [place] wrap applied. Neurovascular status intact. Patient concurs with the conservative treatment plan. Rice therapy discussed. Patient was told to return to the ER for any signs or symptoms worsen. Told to return immediately if any other problems arise. All questions answered. Treatment plan discussed. Patient in agreement Every effort has been made to ensure accuracy of this dictation. However, due to the limitations of electronic medical records and dictation devices, errors in charting still occur. Supervising physician is Dr. Rae - Radiology Data Radiology results: report reviewed, image reviewed Disposition Clinical Impression: Contusion of right hand, initial encounter Disposition: HOME SELF-CARE Condition: Good Instructions (If sedation given, give patient instructions): Hand Sprain (ED) Additional Instructions: Patient was told to return to the ER for any signs or symptoms worsen. Told to return immediately if any other problems arise. All questions answered. Treatment plan discussed. Patient in agreement Every effort has been made to ensure accuracy of this dictation. However, due to the limitations of electronic medical records and dictation devices, errors in charting still occur. Prescriptions: Ibuprofen [Motrin] 600 mg PO Q8HR PRN #30 tab PRN Reason: Pain Acetaminophen [Tylenol] 500 mg PO Q4-6H PRN #24 tab PRN Reason: Pain Is patient prescribed a controlled substance at d/c from ED?: No Referrals: Zahra Marte DO [Doctor of Osteopathic Medicine] - 04/04/22 Time of Disposition: 19:41
== END 2022-03-28 19:47 | disposition home or self-care (01) ==
LOC: EC 17:01
DX: S60.221A Contusion of right hand, initial encounter (principal); F17.200 Nicotine dependence, unspecified, uncomplicated; Z88.8 Allergy status to other drugs, medicaments and biological substances; Z88.1 Allergy status to other antibiotic agents; W22.09XA Striking against other stationary object, initial encounter
CPT/HCPCS: 99283

== ENCOUNTER 2022-06-25 19:01 | Emergency (ER) | payer BC ==
[2022-06-25 19:05] VITALS: BP 116/69; PULSE 78; RESP 18; TEMP 97.5
[2022-06-25] MEDS ORDERED: KETOROLAC 15 MG/ML 1 ML VIAL IM STA (19:16)
[2022-06-25] MEDS ORDERED: PENICILLIN V POTASSIUM 250 MG TAB PO STA (19:16)
--- NOTE | 2022-06-25 19:17 | ED ---
ENT HPI - General Chief complaint: Dental/Oral Stated complaint: Tooth pain and swelling Time Seen by Provider: 06/25/22 19:05 Source: patient Mode of arrival: ambulatory - History of Present Illness Initial comments: 27-year-old male presents emergency Department with left-sided dental pain and facial swelling. Reports that the pain woke him from sleep earlier this morning. Patient does not see a dentist and has very poor dentition. He denies any difficulty swallowing. No drooling. No shortness of breath. Denies any fevers. No other alleviating, precipitating or modifying factors - Related Data Previous Rx's Medication Instructions Recorded Ibuprofen [Motrin] 600 mg PO Q8HR PRN #20 tab 10/17/20 Acetaminophen [Tylenol] 500 mg PO Q4-6H PRN #24 tab 03/28/22 Ibuprofen [Motrin] 600 mg PO Q8HR PRN #30 tab 03/28/22 HYDROcodone/APAP 10-325MG [Elysian 1 tab PO Q6HR PRN 3 Days #12 tab 06/25/22 10-325] Ibuprofen [Motrin] 600 mg PO Q8HR PRN #30 tab 06/25/22 Penicillin V Potassium [Pen Vee K] 500 mg PO QID #28 tab 06/25/22 Allergies Allergy/AdvReac Type Severity Reaction Status Date / Time ceftriaxone sodium Allergy Swelling Verified 06/25/22 19:05 [From Rocephin] azithromycin AdvReac Unknown Verified 06/25/22 19:05 Review of Systems ROS Statement: Those systems with pertinent positive or pertinent negative responses have been documented in the HPI. ROS Other: All systems not noted in ROS Statement are negative. Past Medical History Past Medical History: No Reported History History of Any Multi-Drug Resistant Organisms: None Reported Additional Past Surgical History / Comment(s): bilateral knee arthroscopically for torn meniscus Past Psychological History: Bipolar, Depression, Schizophrenia Smoking Status: Current every day smoker Past Alcohol Use History: None Reported Past Drug Use History: Marijuana - Past Family History Father Family Medical History: Unable to Obtain Additional Family Medical History / Comment(s): Father is 42 years of age and has questionable bipolar disorder. Patient states he has anger issues. Mother Family Medical History: Unable to Obtain Additional Family Medical History / Comment(s): Mother is 37 years old and has had problems with bowel surgeries, liver failure, bipolar disorder. Brother(s) Additional Family Medical History / Comment(s): Patient has 3 half brothers and 4 half-sisters. Patient states they all have bipolar disorder, schizophrenia or depression. She does not have any children of his own. General Exam General appearance: alert, in no apparent distress Head exam: Present: atraumatic, normocephalic, normal inspection Eye exam: Present: normal appearance, PERRL, EOMI. Absent: scleral icterus, conjunctival injection, periorbital swelling ENT exam: Present: mucous membranes moist, other (extremely poor dentition. no dental abscesses. no tongue swelling. floor of mouth is soft. no drooling, trismus, hoarseness or stridor) Course Vital Signs 06/25/22 19:03 Temperature 97.5 F L Pulse Rate 78 Respiratory 18 Rate Blood Pressure 116/69 O2 Sat by Pulse 97 Oximetry Medical Decision Making - Medical Decision Making Upon arrival patient was placed into room 6. Thorough history and physical exam was performed. No dental abscess at this time. No signs of Cade angina. Patient is given a dose of pain medications and antibiotics. Will be placed on pain medications and antibiotics the outpatient setting. Needs to call in the morning to find a dentist. Return for any new or worsening symptoms. Patient was discharged home in stable condition Disposition Clinical Impression: Dentalgia Disposition: HOME SELF-CARE Condition: Stable Instructions (If sedation given, give patient instructions): Toothache (ED) Additional Instructions: Take antibiotics as directed. Alternate taking Motrin and Elysian for pain every 4 hours. Follow-up with your dentist for extraction of your teeth. Call tomorrow for an appointment. Return for any new or worsening symptoms Prescriptions: Ibuprofen [Motrin] 600 mg PO Q8HR PRN #30 tab PRN Reason: Pain HYDROcodone/APAP 10-325MG [Elysian 10-325] 1 tab PO Q6HR PRN 3 Days #12 tab PRN Reason: Pain Penicillin V Potassium [Pen Vee K] 500 mg PO QID #28 tab Is patient prescribed a controlled substance at d/c from ED?: Yes When asked, does pt state using other controlled substances?: No If prescribed controlled substance>3 days was MAPS reviewed?: Prescribed <3 Days If opioid is for acute pain is fill amount 7 days or less?: Yes If Rx opioid, was Start Talking consent form obtained?: Yes Referrals: Analia Garcia MD [Primary Care Provider] - 1-2 days Time of Disposition: 19:24
== END 2022-06-25 19:37 | disposition home or self-care (01) ==
LOC: EC 19:01
DX: K08.89 Other specified disorders of teeth and supporting structures (principal); F17.200 Nicotine dependence, unspecified, uncomplicated; Z88.1 Allergy status to other antibiotic agents
CPT/HCPCS: 99283; 96372; J1885

== ENCOUNTER 2022-08-24 11:46 | Inpatient (IN) | payer BC ==
--- NOTE | 2022-08-24 14:54 | ED ---
Psych HPI - General Chief Complaint: Psychiatric Symptoms Stated Complaint: mental health Time Seen by Provider: 08/24/22 11:59 Source: patient Mode of arrival: ambulatory - History of Present Illness Initial Comments: Patient is a 27-year-old male who presents for psychiatric evaluation. Patient reports suicidal thoughts for the past couple weeks with multiple plans which he does not want to talk about. Patient burned himself in the arm several times today. He admits to homicidal ideation without plan or intention. Denies visual or auditory hallucinations. Denies alcohol and drug use including marijuana. Denies fever, chills, shortness breath, chest pain, abdominal pain, nausea, vomiting, diarrhea, and other concerns. - Related Data Home Medications Medication Instructions Recorded Confirmed No Known Home Medications 08/24/22 08/24/22 Allergies Allergy/AdvReac Type Severity Reaction Status Date / Time ceftriaxone sodium Allergy Swelling Verified 08/24/22 18:04 [From Rocephin] azithromycin AdvReac Unknown Verified 08/24/22 18:04 Review of Systems ROS Statement: Those systems with pertinent positive or pertinent negative responses have been documented in the HPI. ROS Other: All systems not noted in ROS Statement are negative. Past Medical History Past Medical History: No Reported History History of Any Multi-Drug Resistant Organisms: None Reported Additional Past Surgical History / Comment(s): bilateral knee arthroscopically for torn meniscus Past Psychological History: Bipolar, Depression, Schizophrenia Smoking Status: Current every day smoker Past Alcohol Use History: None Reported Past Drug Use History: Marijuana - Past Family History Father Family Medical History: Unable to Obtain Additional Family Medical History / Comment(s): Father is 42 years of age and has questionable bipolar disorder. Patient states he has anger issues. Mother Family Medical History: Unable to Obtain Additional Family Medical History / Comment(s): Mother is 37 years old and has had problems with bowel surgeries, liver failure, bipolar disorder. Brother(s) Additional Family Medical History / Comment(s): Patient has 3 half brothers and 4 half-sisters. Patient states they all have bipolar disorder, schizophrenia or depression. She does not have any children of his own. General Exam Limitations: no limitations General appearance: alert, in no apparent distress, anxious Head exam: Present: atraumatic, normocephalic, normal inspection Eye exam: Present: normal appearance, PERRL, EOMI. Absent: scleral icterus, conjunctival injection, periorbital swelling Respiratory exam: Present: normal lung sounds bilaterally. Absent: respiratory distress, wheezes, rales, rhonchi, stridor Cardiovascular Exam: Present: regular rate, normal rhythm, normal heart sounds. Absent: systolic murmur, diastolic murmur, rubs, gallop, clicks Neurological exam: Present: alert, oriented X3, CN II-XII intact Psychiatric exam: Present: normal affect. Absent: normal mood Skin exam: Present: warm, dry, intact, normal color. Absent: rash Course Vital Signs 08/24/22 08/24/22 08/24/22 11:49 11:51 13:00 Temperature 98 F 98.1 F Pulse Rate 96 79 Respiratory 18 20 18 Rate Blood Pressure 142/92 148/90 O2 Sat by Pulse 99 99 Oximetry 08/24/22 15:20 Temperature Pulse Rate Respiratory 16 Rate Blood Pressure O2 Sat by Pulse Oximetry Medical Decision Making - Medical Decision Making This is a 27-year-old male presenting with suicidal ideation. Breath alcohol level is 0. Patient is cleared medically and can be evaluated by emergency psychiatric services. Patient evaluated by emergency psychiatric services and will be admitted to inpatient psychiatric floor. Dr. Avila is my attending. - Lab Data Lab Results 08/24/22 Range/Units 17:28 Coronavirus (PCR) Not Detected (Not Detectd) Disposition Clinical Impression: Suicidal ideation, Homicidal ideation, Self-harming behavior Disposition: ADMITTED IP TO THIS HOSP Condition: Good Referrals: Analia Garcia MD [Primary Care Provider] - 1-2 days
[2022-08-24 15:21] VITALS: RESP 16
[2022-08-24] MEDS ORDERED: MAGNESIUM HYDROXIDE 2,400 MG/10 ML CUP PO PRN (23:59)
[2022-08-24] MEDS ORDERED: HALOPERIDOL LACTATE 5 MG/ML 1 ML VIAL IM PRN (23:59)
[2022-08-24] MEDS ORDERED: ACETAMINOPHEN TAB 325 MG TAB PO PRN (23:59)
[2022-08-25] MEDS ORDERED: LORazepam 2 MG/ML INJ IM PRN (00:03)
[2022-08-25] MEDS ORDERED: haloperidoL 5 MG TAB PO PRN (00:04)
[2022-08-25] MEDS: LORazepam 1 MG TAB PO PRN ×2 (02:13→18:12)
[2022-08-25 07:53] LABS: Basophils % (A) 0 %; Eosinophils # (A) 0.1 k/uL (0-0.7); Eosinophils % (A) 1 %; HCT 48.6 % (39.0-53.0); HGB 15.9 gm/dL (13.0-17.5); Lymphocytes # (A) 2.1 k/uL (1.0-4.8); Lymphocytes % (A) 21 %; MCH 28.9 pg (25.0-35.0); MCHC 32.6 g/dL (31.0-37.0); MCV 88.6 fL (80.0-100.0); Mean Platelet Volume 7.2; Monocytes # (A) 0.5 k/uL (0-1.0); Monocytes % (A) 4 %; Neutrophils # (A) 7.3 k/uL (1.3-7.7); Neutrophils % (A) 72 %; Platelet Count 296 k/uL (150-450); RBC 5.48 m/uL (4.30-5.90); RDW 12.4 % (11.5-15.5); WBC 10.2 k/uL (3.8-10.6)
[2022-08-25 07:56] LABS: ALT 15 U/L (4-49); AST 24 U/L (17-59); African American GFR (CKD) >90 (>60 ml/min/1.73 sqM); Albumin 5.2 g/dL (3.5-5.0); Alkaline Phosphatase 60 U/L (38-126); Anion Gap 9 mmol/L; Blood Urea Nitrogen 17 mg/dL (9-20); Carbon Dioxide 31 mmol/L (22-30); Chloride 99 mmol/L (98-107); Glucose 93 mg/dL (74-99); Non-African American GFR(CKD) >90 (>60 ml/min/1.73 sqM); Potassium 4.7 mmol/L (3.5-5.1); Sodium 139 mmol/L (137-145); Total Protein 7.9 g/dL (6.3-8.2)
[2022-08-25] MEDS ORDERED: NICOTINE 14MG/24HR PATCH TRANSDERM SCH (09:00)
[2022-08-25 11:40] LABS: Chol/HDL Ratio 3.05 Ratio; LDL Cholesterol,Calculated 94.6 mg/dL (0.0-131.0)
[2022-08-25] MEDS: NICOTINE 21MG/24HR PATCH TRANSDERM SCH (14:49)
[2022-08-25] MEDS ORDERED: VENLAFAXINE HCL ER 37.5 MG CAP PO STA (18:50)
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
[2022-08-25] MEDS: BACITRACIN OINT 1 EACH PACKET TOPICAL SCH (20:47)
[2022-08-25] MEDS ORDERED: MIRTAZAPINE 15 MG TAB PO SCH (21:00)
--- NOTE | 2022-08-25 22:08 | P.MDCNMH ---
History of Present Illness H&P Date: 08/25/22 Chief Complaint: Suicidal ideation Patient is a 27-year-old male with a known history of schizophrenia, bipolar disorder, depression and currently everyday smoker/vapor currently not taking any medications presents to ER voluntarily for psychiatric evaluation indiscretion and suicidal thoughts. Patient states that he is feeling very depressed and has suicidal thoughts with a plan. He plans to asphyxiate himself or burn himself. Denies any homicidal ideation. Denied any hallucinations or delusions. Otherwise patient denied any complaints of chest pain or shortness of breath. No fever no chills. No nausea vomiting abdominal pain or diarrhea. Denies any dysuria or hematuria. Laboratory data showed WBC 10.2 hemoglobin 15.9 and platelets 26 Potassium 4.7 chloride 99 bicarb is 31 BUN 17 and creatinine 1.05 and liver enzymes are not elevated TSH 0.879 within normal limits. Coronavirus PCR not detected. The LDL 94.6. Review of Systems Constitutional: Patient denies any fever or chills . no Generalized weakness. Abdomen: Patient denied any nausea or vomiting or abd. pain Cardiovascular: Patient denies any chest pain or short of breath no palpitations. Respiratory: patient denied any cough . no sputum production. No shortness of breath Neurologic: Patient denied any numbness or tingling headache. Musculoskeletal: Patient denies any complaints of joint swelling or deformity. Skin: Negative Psychiatric: Negative Endocrine: No heat or cold intolerance. No recent weight gain. Genitourinary: No dysuria or hematuria. All other 14 point ROS negative except the above Past Medical History Past Medical History: No Reported History History of Any Multi-Drug Resistant Organisms: None Reported Additional Past Surgical History / Comment(s): bilateral knee arthroscopically for torn meniscus Past Psychological History: Bipolar, Depression, Schizophrenia Smoking Status: Current every day smoker Past Alcohol Use History: None Reported Additional Past Alcohol Use History / Comment(s): Patient states he smokes a half a pack of cigarettes per day and has been smoking for 11 years. He states he is marijuana in the past but none recently. He states he drinks alcohol on a very rare basis. He denies any street drug use. 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 Past Drug Use History: Marijuana - Past Family History Father Family Medical History: Unable to Obtain Additional Family Medical History / Comment(s): Father is 42 years of age and has questionable bipolar disorder. Patient states he has anger issues. Mother Family Medical History: Unable to Obtain Additional Family Medical History / Comment(s): Mother is 37 years old and has had problems with bowel surgeries, liver failure, bipolar disorder. Brother(s) Additional Family Medical History / Comment(s): Patient has 3 half brothers and 4 half-sisters. Patient states they all have bipolar disorder, schizophrenia or depression. he does not have any children of his own. Medications and Allergies Home Medications Medication Instructions Recorded Confirmed Type No Known Home Medications 08/24/22 08/24/22 History Allergies Allergy/AdvReac Type Severity Reaction Status Date / Time ceftriaxone sodium Allergy Swelling Verified 08/24/22 18:04 [From Rocephin] azithromycin AdvReac Unknown Verified 08/24/22 18:04 Physical Exam Vitals: Vital Signs Temp Pulse Pulse Resp BP BP Pulse Ox 08/25/22 05:56 97.0 F L 85 16 131/81 99 08/24/22 20:00 82 16 136/77 98 Intake and Output 08/25/22 08/25/22 08/25/22 06:59 14:59 22:59 Other: Weight 68.039 kg 67 kg PHYSICAL EXAMINATION: Patient is lying in the bed comfortably, no acute distress, awake alert and oriented.. HEENT: Normocephalic. Neck is supple. Pupils reactive. Nostrils clear. Oral cavity is moist. Neck reveals no JVD, carotid bruits, or thyromegaly. CHEST EXAMINATION: Trachea is central. Symmetrical expansion. Lung alberto clear to auscultation and percussion. CARDIAC: Normal S1, S2 with no gallops. No murmurs ABDOMEN: Soft. Bowel sounds present. Nontender. No organomegaly. No abdominal bruits. Extremities: reveal no edema. No clubbing or cyanosis Neurologically awake, alert, oriented x3 with well-coordinated movements. No focal deficits noted Skin: No rash or skin lesions. Psychiatric: Coperative. Nonsuicidal, Musculoskeletal: No joint swelling or deformity. Normal range of motion. Cranial Nerve Examination - Cranial Nerves Cranial Nerve I- Olfactory: Intact Cranial Nerve II- Optic: Intact Cranial Nerve III- Oculomotor: Intact Cranial Nerve IV- Trochlear: Intact Cranial Nerve V- Trigeminal: Intact Cranial Nerve - Abducens: Intact Cranial Nerve VII- Facial: Intact Cranial Nerve VIII- Auditory: Intact Cranial Nerve IX- Glossopharyngeal: Intact Cranial Nerve X- Vagus: Intact Cranial Nerve XI- Accessory: Intact Cranial Nerve XII- Hypoglossal: Intact Results CBC & Chem 7: 08/25/22 07:24 08/25/22 07:24 Labs: Abnormal Lab Results - Last 24 Hours (Table) 08/25/22 Range/Units 07:24 Carbon Dioxide 31 H (22-30) mmol/L Albumin 5.2 H (3.5-5.0) g/dL Assessment and Plan Assessment: Suicidal ideation with a plan Major depression Borderline personality disorder Schizophrenia Currently everyday smoking/vaping Marijuana use DVT prophylaxis early ambulation Plan: Patient will will be continued on Effexor and Remeron as per psychiatry recommendations. Continue current management. Laboratory data reviewed. Smoking cessation has been counseled. We will continue to follow with you and further recommendations based on clinical course. Thank you for your consult. Time with Patient: Greater than 30
[2022-08-26] MEDS: BACITRACIN OINT 1 EACH PACKET TOPICAL SCH ×2 (08:21→21:06)
[2022-08-26] MEDS: VENLAFAXINE HCL ER 75 MG CAP PO SCH (08:21)
[2022-08-26] MEDS: NICOTINE 21MG/24HR PATCH TRANSDERM SCH (08:21)
--- NOTE | 2022-08-26 12:58 | P.PN ---
Progress Note - Text Progress Note Date: 08/26/22 Interval History: Patient was seen in the hallway and agreeable to speak to specifications writer in the office. Claims that he is not depressed but states "Im not sure how I feel". States that he has been dealing with chronic SI for at least 2-3 months. Denies any triggers at the moment but does state that his job is more stressful now. claims that he was agitated earlier and punched his mirror. Denying any pain at this time. claims that he does have mood swings and can be impulsive. CLaims his sleep is good, appetite is not good. At this time he claims that he is having mild SI, no plan, denies any HI. Denies any AH or VH today. General Appearance: Patient appears to be stated age, has multiple self- inflicted ramsey on his hand, otherwise has adequate hygiene and grooming. Behavior: Patient is seated without any agitated behavior. somewhat irritable yet directable Speech: Patient's speech is fluent and non-pressured. Mood/Affect: Patient reports his mood is improving midlly, affect is congruent and constricted. Suicidality/Homicidality: Patient denies having any active homicidal ideation intent or plan. He reports suicidal ideations, improving, no plan. Perceptions: Patient denies any visual hallucinations and denies any auditory hallucinations. Though content/process: There is no evidence of any delusional thought content and thought process is linear and goal-directed. Memory and concentration: AOX3, grossly intact for the purposes of this session Judgment and insight: Fair insight, poor judgment. IMPRESSIONS: Major depressive disorder, recurrent, severe Cannabis use disorder Borderline personality disorder PTSD PLAN: -Patient is admitted under voluntary status to [facility] for stabilization of psychiatric symptoms and safety. Patient has signed adult voluntary form and medication consent and is placed in patient's chart. -Medications: Effexor XR 75 mg daily starting tomorrow AM for depression/anxiety/PTSD. increase Remeron 15 mg QHS tonight for depression/sleep. added lithium 150 mg bid for mood stabilization/suicidal thoughts. -Ativan and Haldol PRN for agitation/aggression -Patient was counselled on substance abuse and desired to cut back on use -Patient was informed of the risks, benefits and side effects of the medication and patient verbally consented to taking the medications. Patient signed med consent form and was placed in chart. -Internal Medicine consult to perform medical evaluation and physical. -NRT - nicotine patch if needed -SW to work on disposition. [facility]
[2022-08-26] MEDS: LITHIUM CARBONATE 150 MG CAP PO SCH ×2 (13:49→21:06)
[2022-08-26 13:54] VITALS: BMI 23.1
[2022-08-26] MEDS ORDERED: MIRTAZAPINE 15 MG TAB PO SCH (21:00)
[2022-08-27] MEDS: LORazepam 1 MG TAB PO PRN (05:25)
[2022-08-27] MEDS: LITHIUM CARBONATE 150 MG CAP PO SCH ×2 (08:42→20:20)
[2022-08-27] MEDS: NICOTINE 21MG/24HR PATCH TRANSDERM SCH (08:42)
[2022-08-27] MEDS: VENLAFAXINE HCL ER 75 MG CAP PO SCH (08:42)
[2022-08-27] MEDS: BACITRACIN OINT 1 EACH PACKET TOPICAL SCH ×2 (08:42→20:30)
[2022-08-27] MEDS ORDERED: VENLAFAXINE HCL ER 75 MG CAP PO STA (10:26)
--- NOTE | 2022-08-27 10:31 | P.PN ---
Progress Note - Text Progress Note Date: 08/27/22 Interval History: Patient was seen in the hallway and agreeable to speak to video game script writer in the office. Patient states that he is doing a bit better today with regards to his anxiety offer continues to state that he does feel depressed. He claims that the suicidal thoughts have been improving mildly since yesterday being started on the lithium. She claims that he is feeling less irritable however claims that one patient has been walking into his room and also aggravating him. He claims that he is trying to go to groups and participate as best as he can. Denying any pain at this time. claims that he does have mood swings and can be impulsive however this has improved moderately since yesterday. Claims his sleep is "okay" however states that he had a lot of interruptions last night with his sleep, appetite is mildly improving. At this time he claims that he is having less SI, no plan, denies any HI. Denies any AH or VH today. General Appearance: Patient appears to be stated age, has multiple self- inflicted ramsey on his hand, otherwise has adequate hygiene and grooming. Behavior: Patient is seated without any agitated behavior. less irritable yet directable Speech: Patient's speech is fluent and non-pressured. Mood/Affect: Patient reports his mood is improving midlly still depressed and anxious, affect is congruent and constricted. Suicidality/Homicidality: Patient denies having any active homicidal ideation intent or plan. He reports suicidal ideations, improving, no plan. Perceptions: Patient denies any visual hallucinations and denies any auditory hallucinations. Though content/process: There is no evidence of any delusional thought content and thought process is linear and goal-directed. Memory and concentration: AOX3, grossly intact for the purposes of this session Judgment and insight: Insight and judgment improving mildly IMPRESSIONS: Major depressive disorder, recurrent, severe Cannabis use disorder Borderline personality disorder PTSD PLAN: -Patient is admitted under voluntary status to [facility] for stabilization of psychiatric symptoms and safety. Patient has signed adult voluntary form and medication consent and is placed in patient's chart. -Medications: increase Effexor XR 150 mg daily starting tomorrow AM for depression/anxiety/PTSD. increase Remeron 30 mg QHS tonight for depression/sleep. cont lithium 150 mg bid for mood stabilization/suicidal thoughts. -Ativan and Haldol PRN for agitation/aggression -Patient was counselled on substance abuse and desired to cut back on use -Patient was informed of the risks, benefits and side effects of the medication and patient verbally consented to taking the medications. Patient signed med con sent form and was placed in chart. -Internal Medicine consult to perform medical evaluation and physical. -NRT - nicotine patch if needed -SW to work on disposition. encouraged particiaption in [facility]. likely discharge back home in 1-2 days.
[2022-08-27] MEDS: MIRTAZAPINE 15 MG TAB PO SCH (20:20)
[2022-08-28] MEDS: NICOTINE 21MG/24HR PATCH TRANSDERM SCH (07:57)
[2022-08-28] MEDS: VENLAFAXINE HCL ER 150 MG CAP PO SCH (07:58)
[2022-08-28] MEDS: BACITRACIN OINT 1 EACH PACKET TOPICAL SCH ×2 (07:58→20:59)
[2022-08-28] MEDS: LITHIUM CARBONATE 150 MG CAP PO SCH (07:58)
[2022-08-28] MEDS ORDERED: LITHIUM CARBONATE 150 MG CAP PO STA (09:01)
[2022-08-28] MEDS: LORazepam 1 MG TAB PO PRN (10:10)
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
--- NOTE | 2022-08-28 13:35 | XR ---
EXAMINATION TYPE: XR hand complete RT DATE OF EXAM: 08/28/2022 9:47 AM INDICATION: Patient age:Male; 27 years old; Reason for study: swelling right hand; PHH. COMPARISON: None TECHNIQUE: Frontal, lateral and oblique views of the right hand were obtained. FINDINGS: Soft tissue swelling of the right hand without evidence of fracture. No radiopaque foreign body. Ulnar negative variance noted. IMPRESSION: Soft tissue swelling of the right hand without evidence of fracture consider MRI for further evaluati on and clinical correlation.
[2022-08-28] MEDS: LITHIUM CARBONATE 300 MG CAP PO SCH (20:59)
[2022-08-28] MEDS: MIRTAZAPINE 15 MG TAB PO SCH (20:59)
[2022-08-28] MEDS ORDERED: MELATONIN 3 MG TABLET PO SCH (21:00)
[2022-08-29 07:03] VITALS: BP 112/60; PULSE 87; TEMP 97.8
[2022-08-29] MEDS: NICOTINE 21MG/24HR PATCH TRANSDERM SCH (08:53)
[2022-08-29] MEDS: BACITRACIN OINT 1 EACH PACKET TOPICAL SCH (08:54)
[2022-08-29] MEDS: VENLAFAXINE HCL ER 150 MG CAP PO SCH (08:54)
[2022-08-29] MEDS: LITHIUM CARBONATE 300 MG CAP PO SCH (08:54)
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
[2022-08-29] MEDS: LORazepam 1 MG TAB PO PRN (12:38)
== END 2022-08-29 18:30 | disposition home or self-care (01) | DRG 885 ==
LOC: EC 11:46 → 3MHU 23:50
PROVIDERS: ADMIT Psychiatry & Neurology Psychiatry; ATTEND Psychiatry & Neurology Psychiatry
DX: F33.2 Major depressive disorder, recurrent severe without psychotic features (principal); R45.851 Suicidal ideations; R45.850 Homicidal ideations; T23.009A Burn of unspecified degree of unspecified hand, unspecified site, initial encounter; S69.91XA Unspecified injury of right wrist, hand and finger(s), initial encounter; F60.3 Borderline personality disorder; F43.10 Post-traumatic stress disorder, unspecified; R63.0 Anorexia; F51.5 Nightmare disorder; W22.09XA Striking against other stationary object, initial encounter; F17.290 Nicotine dependence, other tobacco product, uncomplicated; Z62.820 Parent-biological child conflict; Z62.810 Personal history of physical and sexual abuse in childhood; Z62.811 Personal history of psychological abuse in childhood; X77 Intentional self-harm by steam, hot vapors and hot objects; Z88.1 Allergy status to other antibiotic agents; Z79.899 Other long term (current) drug therapy; Z91.51 Personal history of suicidal behavior; Z91.52 Personal history of nonsuicidal self-harm; Z81.8 Family history of other mental and behavioral disorders; Z63.8 Other specified problems related to primary support group; Z28.310 Unvaccinated for COVID-19; Z68.23 Body mass index [BMI] 23.0-23.9, adult
CPT/HCPCS: 80053; 80061; 82075; 83036; 84443; 85025; 87635; 99285

== ENCOUNTER 2022-09-19 00:53 | Emergency (ER) | payer BC ==
[2022-09-19 01:01] VITALS: TEMP 98
[2022-09-19 01:25] LABS: Basophils % (A) 0 %; Eosinophils # (A) 0.1 k/uL (0-0.7); Eosinophils % (A) 1 %; HCT 43.3 % (39.0-53.0); HGB 15.3 gm/dL (13.0-17.5); Lymphocytes # (A) 1.5 k/uL (1.0-4.8); Lymphocytes % (A) 13 %; MCH 30.5 pg (25.0-35.0); MCHC 35.5 g/dL (31.0-37.0); Mean Platelet Volume 7.5; Monocytes # (A) 0.5 k/uL (0-1.0); Monocytes % (A) 4 %; Neutrophils # (A) 9.6 k/uL (1.3-7.7); Neutrophils % (A) 80 %; Platelet Count 275 k/uL (150-450); RBC 5.03 m/uL (4.30-5.90); RDW 12.5 % (11.5-15.5)
[2022-09-19 01:41] LABS: ALT 24 U/L (4-49); AST 34 U/L (17-59); African American GFR (CKD) >90 (>60 ml/min/1.73 sqM); Alkaline Phosphatase 65 U/L (38-126); Amylase 61 U/L (30-110); Anion Gap 15 mmol/L; Blood Urea Nitrogen 10 mg/dL (9-20); Calcium 9.6 mg/dL (8.4-10.2); Carbon Dioxide 24 mmol/L (22-30); Chloride 99 mmol/L (98-107); Glucose 118 mg/dL (74-99); Lipase 36 U/L (23-300); Non-African American GFR(CKD) >90 (>60 ml/min/1.73 sqM); Potassium 3.8 mmol/L (3.5-5.1); Sodium 138 mmol/L (137-145); Total Bilirubin 0.5 mg/dL (0.2-1.3); Total Protein 7.7 g/dL (6.3-8.2)
[2022-09-19 01:55] LABS: Appearance,Urine Clear (Clear); Bilirubin,Urine Negative (Negative); Blood,Urine Negative (Negative); Color,Urine Light Yellow; Glucose,Urine (UA) Negative (Negative); Ketones,Urine Negative (Negative); Leukocyte Esterase,Urine Negative (Negative); Nitrite,Urine Negative (Negative); Protein,Urine Negative (Negative); Specific Gravity,Urine 1.006 (1.001-1.035); Urobilinogen,Urine <2.0 mg/dL (<2.0)
--- NOTE | 2022-09-19 02:09 | CT ---
EXAMINATION TYPE: CT abdomen pelvis w con DATE OF EXAM: 09/19/2022 COMPARISON: 08/09/2021 HISTORY: LLQ pain CT DLP: 630.1 mGycm Automated exposure control for dose reduction was used. CONTRAST: Performed with IV Contrast, patient injected with 100 mL of Isovue 300. Images obtained from the diaphragm to the floor the pelvis with the IV contrast. Lung bases are clear. No pleural effusion. Heart size is normal. No pericardial effusion. Liver spleen stomach pancreas appear intact. The bile ducts are not dilated. Gallbladder appears norm al. There is no adrenal mass. Kidneys show satisfactory contrast opacification. No hydronephrosis. There is 1 cm cyst posterior right kidney. No retroperitoneal adenopathy. The bladder distends smoothly. No inguinal hernia. No free fluid in the pelvis. No pelvic mass. Appendix not clearly seen. No sign of thickened appendix. There is no mesenteric edema. No ascites or free air. No sign of a bowel obstruction. The lumbar vertebrae have normal spacing and alignment. Posterior elements are intact. Facet joints a re intact. Bony pelvis is intact. Hip joints are intact. IMPRESSION: Negative CT scan abdomen and pelvis. No adverse change compared to old exam.
[2022-09-19 02:41] VITALS: BP 134/84; PULSE 101; RESP 16
[2022-09-19] MEDS ORDERED: KETOROLAC 15 MG/ML 1 ML VIAL IVP STA (03:13)
--- NOTE | 2022-09-19 03:43 | ED ---
Abdominal Pain HPI - General Chief Complaint: Abdominal Pain Stated Complaint: Abdominal Pain Time Seen by Provider: 09/19/22 01:00 Source: patient Mode of arrival: ambulatory - History of Present Illness Initial Comments: 27-year-old male presents to the emergency room with abdominal pain. States that he was at work doing some heavy lifting when he had pain in the left lower quadrant. States that it is worse with positional changes and straining. [place] like he had a bulge in the area. Sudden onset. Did not take any medications for his symptoms. Required leaving work to get evaluated. He admits to nausea without vomiting. No dysuria, hematuria or difficulty voiding. No testicular pain or swelling. No diarrhea, constipation, black or bloody stools. No history of hernia. No other alleviating, precipitating or modifying factors - Related Data Previous Rx's Medication Instructions Recorded [place] Carbonate 300 mg PO BID 30 Days cap 08/29/22 Melatonin 6 mg PO HS 30 Days tab 08/29/22 Mirtazapine [Remeron] 30 mg PO HS 30 Days tab 08/29/22 Nicotine 21Mg/24Hr Patch [Habitrol] 1 patch TRANSDERM DAILY 14 Days 08/29/22 patch Venlafaxine HCl ER [Effexor XR] 150 mg PO DAILY 30 Days cap 08/29/22 Allergies Allergy/AdvReac Type Severity Reaction Status Date / Time ceftriaxone sodium Allergy Swelling Verified 09/19/22 01:01 [From Rocephin] azithromycin AdvReac Unknown Verified 09/19/22 01:01 Review of Systems ROS Statement: Those systems with pertinent positive or pertinent negative responses have been documented in the HPI. ROS Other: All systems not noted in ROS Statement are negative. Past Medical History Past Medical History: No Reported History History of Any Multi-Drug Resistant Organisms: None Reported Additional Past Surgical History / Comment(s): bilateral knee arthroscopically f or torn meniscus Past Psychological History: Bipolar, Depression, Schizophrenia Smoking Status: Current every day smoker Past Alcohol Use History: None Reported Past Drug Use History: Marijuana - Past Family History Father Family Medical History: Unable to Obtain Additional Family Medical History / Comment(s): Father is 42 years of age and has questionable bipolar disorder. Patient states he has anger issues. Mother Family Medical History: Unable to Obtain Additional Family Medical History / Comment(s): Mother is 37 years old and has had problems with bowel surgeries, liver failure, bipolar disorder. Brother(s) Additional Family Medical History / Comment(s): Patient has 3 half brothers and 4 half-sisters. Patient states they all have bipolar disorder, schizophrenia or depression. he does not have any children of his own. General Exam General appearance: alert, in no apparent distress Head exam: Present: atraumatic, normocephalic, normal inspection Eye exam: Present: normal appearance, PERRL, EOMI. Absent: scleral icterus, conjunctival injection, periorbital swelling ENT exam: Present: normal exam, mucous membranes moist Neck exam: Present: normal inspection. Absent: tenderness, meningismus, lymphadenopathy Respiratory exam: Present: normal lung sounds bilaterally. Absent: respiratory distress, wheezes, rales, rhonchi, stridor Cardiovascular Exam: Present: regular rate, normal rhythm, normal heart sounds. Absent: systolic murmur, diastolic murmur, rubs, gallop, clicks GI/Abdominal exam: Present: soft, tenderness (llq. no palpable buldge. no inguinal hernia/pain), normal bowel sounds. Absent: distended, guarding, rebound, rigid Extremities exam: Present: normal inspection, full ROM, normal capillary refill. Absent: tenderness, pedal edema, joint swelling, calf tenderness Back exam: Present: normal inspection Neurological exam: Present: alert, oriented X3, CN II-XII intact Psychiatric exam: Present: normal affect, normal mood Skin exam: Present: warm, dry, intact, normal color. Absent: rash Course Vital Signs 09/19/22 09/19/22 00:59 02:40 Temperature 98 F Pulse Rate 92 101 H Respiratory 19 16 Rate Blood Pressure 149/81 134/84 O2 Sat by Pulse 99 98 Oximetry Medical Decision Making - Medical Decision Making Upon arrival patient is placed into room 17. Thorough history and physical exam was performed. IV access is established. Patient given Toradol for pain control. Laboratory studies are reviewed and are within normal limits. CT is performed without identifiable cause for left lower quadrant pain. Clinical exam is unremarkable. Patient does have improvement in his pain. He will be discharged home at this time. No heavy lifting for the next week. Follow up with primary care doctor in 2-4 days and return for any new or worsening symptoms. May take Motrin and Tylenol for pain. Patient was agreeable with this plan and was discharged home stable condition - Lab Data Result diagrams: 09/19/22 01:11 09/19/22 01:11 Lab Results 09/19/22 09/19/22 09/19/22 Range/Units 01:11 01:11 01:25 WBC 12.0 H (3.8-10.6) k/uL RBC 5.03 (4.30-5.90) m/uL Hgb 15.3 (13.0-17.5) gm/dL Hct 43.3 (39.0-53.0) % MCV 86.0 (80.0-100.0) fL MCH 30.5 (25.0-35.0) pg MCHC 35.5 (31.0-37.0) g/dL RDW 12.5 (11.5-15.5) % Plt Count 275 (150-450) k/uL MPV 7.5 Neutrophils % 80 % Lymphocytes % 13 % Monocytes % 4 % Eosinophils % 1 % Basophils % 0 % Neutrophils # 9.6 H (1.3-7.7) k/uL Lymphocytes # 1.5 (1.0-4.8) k/uL Monocytes # 0.5 (0-1.0) k/uL Eosinophils # 0.1 (0-0.7) k/uL Basophils # 0.0 (0-0.2) k/uL Sodium 138 (137-145) mmol/L Potassium 3.8 (3.5-5.1) mmol/L Chloride 99 (98-107) mmol/L Carbon Dioxide 24 (22-30) mmol/L Anion Gap 15 mmol/L BUN 10 (9-20) mg/dL Creatinine 0.75 (0.66-1.25) mg/dL Est GFR (CKD-EPI)AfAm >90 (>60 ml/min/1.73 sqM) Est GFR (CKD-EPI)NonAf >90 (>60 ml/min/1.73 sqM) Glucose 118 H (74-99) mg/dL Calcium 9.6 (8.4-10.2) mg/dL Total Bilirubin 0.5 (0.2-1.3) mg/dL AST 34 (17-59) U/L ALT 24 (4-49) U/L Alkaline Phosphatase 65 (38-126) U/L Total Protein 7.7 (6.3-8.2) g/dL Albumin 5.0 (3.5-5.0) g/dL Amylase 61 (30-110) U/L Lipase 36 (23-300) U/L Urine Color Light Yellow Urine Appearance Clear (Clear) Urine pH 7.0 (5.0-8.0) Ur Specific [place] 1.006 (1.001-1.035) Urine Protein Negative (Negative) Urine Glucose (UA) Negative (Negative) Urine Ketones Negative (Negative) Urine Blood Negative (Negative) Urine Nitrite Negative (Negative) Urine Bilirubin Negative (Negative) Urine Urobilinogen <2.0 (<2.0) mg/dL Ur Leukocyte Esterase Negative (Negative) Disposition Clinical Impression: Abdominal pain Disposition: HOME SELF-CARE Condition: Stable Instructions (If sedation given, give patient instructions): Abdominal Pain (ED) Additional Instructions: No heavy lifting for one week. Alternate taking Motrin and Tylenol for pain. Follow-up with your primary care and return for any new or worsening symptoms Is patient prescribed a controlled substance at d/c from ED?: No Referrals: Analia Garcia MD [Primary Care Provider] - 1-2 days Time of Disposition: 03:43
== END 2022-09-19 03:56 | disposition home or self-care (01) ==
LOC: EC 00:53
DX: R10.32 Left lower quadrant pain (principal); F31.9 Bipolar disorder, unspecified; F17.200 Nicotine dependence, unspecified, uncomplicated; F12.90 Cannabis use, unspecified, uncomplicated; Z88.1 Allergy status to other antibiotic agents; Z88.0 Allergy status to penicillin; Z79.899 Other long term (current) drug therapy
CPT/HCPCS: 36415; 80053; 82150; 83690; 85025; 81003; 74177; 99284; 96374; J1885; Q9967

== ENCOUNTER 2023-06-09 19:00 | Emergency (ER) | payer BC, OTHER ==
[2023-06-09 19:16] VITALS: TEMP 98.3
[2023-06-09] MEDS ORDERED: SODIUM CHLORIDE 0.9% 1,000 ML IV STA (19:31)
--- NOTE | 2023-06-09 19:31 | ED ---
Chest Pain HPI - General Chief Complaint: Chest Pain Stated Complaint: Tightness in L Arm Source: patient, RN notes reviewed, old records reviewed Mode of arrival: ambulatory Limitations: no limitations - History of Present Illness Initial Comments: This is a 28-year-old male to the emergency department for evaluation patient presents today for evaluation regards to pain chest pain arm pain left arm pain with weakness. Patient has paresthesias and symptoms for 3 days now. No travel history or sick contacts no significant fevers. No trauma or other injury. No other complaints patient does have strong family history of heart disease and is concern for heart disease with heart attack. No prior history of significant issues himself MD Complaint: chest pain, other (Left arm paresthesias) -: hour(s) Onset: during rest, during exertion Pain Location: left chest Pain Radiation: LUE Severity: moderate Severity scale (1-10): 4 Quality: sharp Consistency: intermittent Improves With: nothing Worsens With: nothing Anginal Symptoms: diaphoresis, sense of impending doom Other Symptoms: palpitations Treatments Prior to Arrival: none - Related Data Previous Rx's Medication Instructions Recorded [place] Carbonate 300 mg PO BID 30 Days cap 08/29/22 Melatonin 6 mg PO HS 30 Days tab 08/29/22 Mirtazapine [Remeron] 30 mg PO HS 30 Days tab 08/29/22 Nicotine 21Mg/24Hr Patch [Habitrol] 1 patch TRANSDERM DAILY 14 Days 08/29/22 patch Venlafaxine HCl ER [Effexor XR] 150 mg PO DAILY 30 Days cap 08/29/22 Allergies Allergy/AdvReac Type Severity Reaction Status Date / Time ceftriaxone sodium Allergy Swelling Verified 06/09/23 19:16 [From Rocephin] azithromycin AdvReac Unknown Verified 06/09/23 19:16 Review of Systems ROS Statement: Those systems with pertinent positive or pertinent negative responses have been documented in the HPI. ROS Other: All systems not noted in ROS Statement are negative. EKG Findings - EKG Comments: EKG Findings:: EKG is sinus tachycardia 102 SC 153 QRS 86 QTc 397 - EKG Results: EKG: interpreted by EM Past Medical History Past Medical History: No Reported History History of Any Multi-Drug Resistant Organisms: None Reported Additional Past Surgical History / Comment(s): bilateral knee arthroscopically for torn meniscus Past Psychological History: Bipolar, Depression, Schizophrenia Smoking Status: Former smoker Past Alcohol Use History: None Reported Past Drug Use History: Marijuana - Past Family History Father Family Medical History: Unable to Obtain Additional Family Medical History / Comment(s): Father is 42 years of age and has questionable bipolar disorder. Patient states he has anger issues. Mother Family Medical History: Unable to Obtain Additional Family Medical History / Comment(s): Mother is 37 years old and has had problems with bowel surgeries, liver failure, bipolar disorder. Brother(s) Additional Family Medical History / Comment(s): Patient has 3 half brothers and 4 half-sisters. Patient states they all have bipolar disorder, schizophrenia or depression. he does not have any children of his own. General Exam Limitations: no limitations General appearance: alert, in no apparent distress, anxious Head exam: Present: atraumatic, normocephalic, normal inspection Eye exam: Present: normal appearance, PERRL, EOMI. Absent: scleral icterus, conjunctival injection, periorbital swelling ENT exam: Present: normal exam, mucous membranes moist Neck exam: Present: normal inspection. Absent: tenderness, meningismus, lymphadenopathy Respiratory exam: Present: normal lung sounds bilaterally. Absent: respiratory distress, wheezes, rales, rhonchi, stridor Cardiovascular Exam: Present: regular rate, normal rhythm, normal heart sounds. Absent: systolic murmur, diastolic murmur, rubs, gallop, clicks GI/Abdominal exam: Present: soft, normal bowel sounds. Absent: distended, tenderness, guarding, rebound, rigid Extremities exam: Present: normal inspection, full ROM, normal capillary refill. Absent: tenderness, pedal edema, joint swelling, calf tenderness Back exam: Present: normal inspection Neurological exam: Present: alert, oriented X3, CN II-XII intact Psychiatric exam: Present: normal affect, normal mood Skin exam: Present: warm, dry, intact, normal color. Absent: rash Course Vital Signs 06/09/23 06/09/23 19:13 21:33 Temperature 98.3 F Pulse Rate 79 83 Respiratory 20 18 Rate Blood Pressure 135/76 137/76 O2 Sat by Pulse 98 98 Oximetry - Reevaluation(s) Reevaluation #1: 06/10/23 00:29 Medical record is reviewed Reevaluation #2: 06/10/23 00:29 Patient remains with similar symptoms unchanged Reevaluation #3: 06/10/23 00:29 Patient informed of results questions answered Reevaluation #4: 06/10/23 00:29 Was pt. sent in by a medical professional or institution? @ -no Did you speak to anyone other than the patient for history? @ -no Did you review nursing and triage notes? @ -agree Were old charts reviewed? @ -yes Differential Diagnosis? @ -prior EKG interpreted by me (3pts min.)? @ -yes X-rays interpreted by me (1pt min.)? @ -no CT interpreted by me (1pt min.)? @ -yes U/S interpreted by me (1pt. min.)? @ -no What testing was considered but not performed? (CT, X-rays, U/S, labs)? Why? @ -no What meds were considered but not given? Why? @ -no Did you discuss the management of the patient with other professionals? @ -no Did you reconcile home meds? @ -no Was smoking cessation discussed for >3mins.? @ -no Was critical care preformed (if so, how long)? @ -no Were there social determinants of health that impacted care today? How? (Homelessness, low income, unemployed, alcoholism, drug addiction, transportation, low edu. Level, literacy, decrease access to med. care, long-term, rehab)? @ -no Was there de-escalation of care discussed even if they declined? (Discuss DNR or withdrawal of care, Hospice)? @ -no What co-morbidities impacted this encounter? (DM, HTN, Smoking, COPD, CAD, Cancer, CVA, Hep., AIDS, mental health diagnosis, sleep apnea, morbid obesity)? @ -none Was patient admitted / discharged? @ -28 male to the emergency department for evaluation of chest pain and left arm paresthesias. Patient symptoms are persistent here in the ER although evaluation is negative. Patient states that he feels well, chest pain is resolved no shortness of breath can be discharged home Discharge Undiagnosed new problem with uncertain prognosis? @ -no Drug Therapy requiring intensive monitoring for toxicity (Heparin, Nitro, Insulin, Cardizem)? @ -no Were any procedures done? @ -no Diagnosis/symptom? @ -Chest pain Acute, or Chronic, or Acute on Chronic? @ -acute Uncomplicated (without systemic symptoms) or Complicated (systemic symptoms)? @ -complicated Side effects of treatment? @ -no Exacerbation, Progression, or Severe Exacerbation] @ -no Poses a threat to life or bodily function? @ -yes with chest pain Reevaluation #5: 06/10/23 00:29 Differential Chest Pain: Stable Angina, Unstable Angina, STEMI, NSTEMI Aortic Dissection, Pneumothorax, Musculoskeletal, Esophageal Spasm GERD, Cholecystitis, Pancreatitis, Zoster, this is not meant to be an all-inclusive list. Chest Pain MDM - MDM 28 male to the emergency department for evaluation of chest pain and left arm paresthesias. Patient symptoms are persistent here in the ER although evaluation is negative. Patient states that he feels well, chest pain is resolved no shortness of breath can be discharged home Disposition Clinical Impression: Atypical chest pain, Chest pain, Arm paresthesia, left, Palpitations, Panic attack, Chest wall syndrome Disposition: HOME SELF-CARE Condition: Good Instructions (If sedation given, give patient instructions): Chest Pain (ED), Paresthesia (ED) Is patient prescribed a controlled substance at d/c from ED?: No Referrals: None,Stated [Primary Care Provider] - 1-2 days Time of Disposition: 20:40
[2023-06-09 19:53] LABS: Basophils % (A) 0 %; Eosinophils # (A) 0.2 k/uL (0-0.7); Eosinophils % (A) 3 %; HCT 43.2 % (39.0-53.0); HGB 14.8 gm/dL (13.0-17.5); Lymphocytes # (A) 1.6 k/uL (1.0-4.8); Lymphocytes % (A) 25 %; MCH 29.8 pg (25.0-35.0); MCHC 34.4 g/dL (31.0-37.0); MCV 86.7 fL (80.0-100.0); Mean Platelet Volume 7.1; Monocytes # (A) 0.4 k/uL (0-1.0); Monocytes % (A) 6 %; Neutrophils # (A) 4.2 k/uL (1.3-7.7); Neutrophils % (A) 65 %; Platelet Count 289 k/uL (150-450); RBC 4.98 m/uL (4.30-5.90); RDW 12.3 % (11.5-15.5); WBC 6.5 k/uL (3.8-10.6)
[2023-06-09 20:03] LABS: ALT 18 U/L (4-49); AST 29 U/L (17-59); African American GFR (CKD) >90 (>60 ml/min/1.73 sqM); Albumin 4.5 g/dL (3.5-5.0); Alkaline Phosphatase 53 U/L (38-126); Anion Gap 9 mmol/L; Blood Urea Nitrogen 11 mg/dL (9-20); Calcium 9.4 mg/dL (8.4-10.2); Carbon Dioxide 25 mmol/L (22-30); Chloride 103 mmol/L (98-107); Glucose 108 mg/dL (74-99); Lipase 144 U/L (23-300); Magnesium 1.8 mg/dL (1.6-2.3); Non-African American GFR(CKD) >90 (>60 ml/min/1.73 sqM); Sodium 137 mmol/L (137-145); Total Protein 7.4 g/dL (6.3-8.2)
[2023-06-09 20:08] LABS: Partial Thromboplastin Time 27.7 sec (22.0-30.0); Prothrombin Time 10.5 sec (9.0-12.0)
--- NOTE | 2023-06-09 20:28 | CT ---
EXAMINATION TYPE: CT angio chest CT DLP: 341.3 mGycm, Automated exposure control for dose reduction was used. DATE OF EXAM: 06/09/2023 8:09 PM COMPARISON: None CLINICAL INDICATION:Male, 28 years old with history of cp; Chest pain. TECHNIQUE/CONTRAST: CTA scan of the thorax is performed with IV Contrast, patient injected with 100 ml mL of Isovue 300, pulmonary embolism protocol. MIP images are created and reviewed these are created on a separate wor kstation.. FINDINGS: Pulmonary Artery: There is no evidence for a filling defect within the pulmonary vasculature to sugge st acute pulmonary embolism. The pulmonary artery is of normal size. Lungs/Pleura: No evidence of focal consolidation, pleural effusion or pneumothorax. Airway: Large airways are patent. Heart: Heart is within normal limits for size. Vasculature: No evidence of aortic aneurysm. Mediastinum: No gross evidence of adenopathy. Musculoskeletal: No acute osseous abnormalities Soft Tissues: Increased density posterior to the nipples bilaterally consistent with gynecomastia. Lower neck: No significant findings. Upper Abdomen: No significant findings. IMPRESSION: No evidence of pulmonary embolism.
[2023-06-09 21:34] VITALS: BP 137/76; PULSE 83; RESP 18
== END 2023-06-09 21:34 | disposition home or self-care (01) ==
LOC: EC 19:00
DX: F41.0 Panic disorder [episodic paroxysmal anxiety] (principal); R20.2 Paresthesia of skin; F12.90 Cannabis use, unspecified, uncomplicated; Z86.59 Personal history of other mental and behavioral disorders; Z87.891 Personal history of nicotine dependence; Z88.1 Allergy status to other antibiotic agents; Z88.8 Allergy status to other drugs, medicaments and biological substances
CPT/HCPCS: 36415; 93005; 85379; 83880; 80053; 83690; 83735; 84484; 85025; 85610; 85730; 71275; 99285; 96360; Q9967

== ENCOUNTER 2024-01-14 11:38 | Emergency (ER) | payer OTHER ==
[2024-01-14 12:07] VITALS: BP 123/79; PULSE 96; RESP 18; TEMP 98.5
--- NOTE | 2024-01-14 12:12 | ED ---
Abdominal Pain HPI - General Chief Complaint: Abdominal Pain Stated Complaint: abd pain Time Seen by Provider: 01/14/24 11:50 Source: patient, RN notes reviewed Mode of arrival: ambulatory Limitations: no limitations - History of Present Illness Initial Comments: 29-year-old male presents emergency department complaint of left-sided abdominal pain. Patient has worsened today. Patient was seen in urgent care sent over for further evaluation and states that he has some bulging in the left side concerning for hernia or infection. - Related Data Previous Rx's Medication Instructions Recorded [place] Carbonate 300 mg PO BID 30 Days cap 08/29/22 Melatonin 6 mg PO HS 30 Days tab 08/29/22 Mirtazapine [Remeron] 30 mg PO HS 30 Days tab 08/29/22 Nicotine 21Mg/24Hr Patch [Habitrol] 1 patch TRANSDERM DAILY 14 Days 08/29/22 patch Venlafaxine HCl ER [Effexor XR] 150 mg PO DAILY 30 Days cap 08/29/22 Allergies Allergy/AdvReac Type Severity Reaction Status Date / Time ceftriaxone sodium Allergy Swelling Verified 01/14/24 11:58 [From Rocephin] azithromycin AdvReac Unknown Verified 01/14/24 11:58 Review of Systems ROS Statement: Those systems with pertinent positive or pertinent negative responses have been documented in the HPI. ROS Other: All systems not noted in ROS Statement are negative. Past Medical History Past Medical History: No Reported History History of Any Multi-Drug Resistant Organisms: None Reported Additional Past Surgical History / Comment(s): bilateral knee arthroscopically for torn meniscus Past Psychological History: Bipolar, Depression, Schizophrenia Smoking Status: Former smoker, Vaper Past Alcohol Use History: None Reported Past Drug Use History: Marijuana - Past Family History Father Family Medical History: Unable to Obtain Additional Family Medical History / Comment(s): Father is 42 years of age and has questionable bipolar disorder. Patient states he has anger issues. Mother Family Medical History: Unable to Obtain Additional Family Medical History / Comment(s): Mother is 37 years old and has had problems with bowel surgeries, liver failure, bipolar disorder. Brother(s) Additional Family Medical History / Comment(s): Patient has 3 half brothers and 4 half-sisters. Patient states they all have bipolar disorder, schizophrenia or depression. he does not have any children of his own. General Exam Limitations: no limitations General appearance: alert, in no apparent distress Head exam: Present: atraumatic, normocephalic, normal inspection Neck exam: Present: normal inspection. Absent: tenderness, meningismus, lymphadenopathy Respiratory exam: Present: normal lung sounds bilaterally. Absent: respiratory distress, wheezes, rales, rhonchi, stridor Cardiovascular Exam: Present: regular rate, normal rhythm, normal heart sounds. Absent: systolic murmur, diastolic murmur, rubs, gallop, clicks GI/Abdominal exam: Present: soft, tenderness, normal bowel sounds. Absent: distended, guarding, rebound, rigid Back exam: Absent: CVA tenderness (R), CVA tenderness (L) Neurological exam: Present: alert, oriented X3 Skin exam: Present: warm, dry, intact, normal color. Absent: rash Course Vital Signs 01/14/24 11:55 Temperature 98.5 F Pulse Rate 96 Respiratory 18 Rate Blood Pressure 123/79 O2 Sat by Pulse 98 Oximetry Medical Decision Making - Medical Decision Making Was pt. sent in by a medical professional or institution (Dr. PA, BILL ADJUSTER, urgent care, hospital, or [facility]...) When possible be specific @ -Urgent care Did you speak to anyone other than the patient for history (EMS, parent, family, police, friend...)? What history was obtained from this source @ -No Did you review nursing and triage notes (agree or disagree)? Why? @ -I reviewed and agree with nursing and triage notes Were old charts reviewed (outside hosp., previous admission, EMS record, old EKG, old radiological studies, urgent care reports/EKG's, [facility] records)? Report findings @ -No old charts were reviewed Differential Diagnosis (chest pain, altered mental status, abdominal pain women, abdominal pain men, vaginal bleeding, weakness, fever, dyspnea, syncope, headache, dizziness, GI bleed, back pain, seizure, CVA, palpatations, mental health, musculoskeletal)? @ -Differential Abdominal Pain Men: Appendicitis, cholecystitis, diverticulosis, ischemic bowel, pancreatitis, hepatitis, UTI, gastroenteritis, AAA, incarcerated hernia, bowel obstruction, constipation, inflammatory bowel, hepatitis, peptic ulcer disease, splenic infarction, perforated viscus, testicular torsion, this is not meant to be an all-inclusive list EKG interpreted by me (3pts min.). @ -[None X-rays interpreted by me (1pt min.). @ -None done CT interpreted by me (1pt min.). @ -CT abdomen pelvis showing no acute intra-abdominal process. U/S interpreted by me (1pt. min.). @ -None done What testing was considered but not performed or refused? (CT, X-rays, U/S, labs)? Why? @ -None What meds were considered but not given or refused? Why? @ -None Did you discuss the management of the patient with other professionals (professionals i.e. , PA, BILL ADJUSTER, lab, RT, psych nurse, aids social worker, judicial registrar, teacher, conservation enforcement officer, clinical case manager)? Give summary @ -No Was smoking cessation discussed for >3mins.? @ -No Was critical care preformed (if so, how long)? @ -No Were there social determinants of health that impacted care today? How? (Homelessness, low income, unemployed, alcoholism, drug addiction, transportation, low edu. Level, literacy, decrease access to med. care, [facility], rehab)? @ -No Was there de-escalation of care discussed even if they declined (Discuss DNR or withdrawal of care, Hospice)? DNR status @ -No What co-morbidities impacted this encounter? (DM, HTN, Smoking, COPD, CAD, Cancer, CVA, ARF, Chemo, Hep., AIDS, mental health diagnosis, sleep apnea, morbid obesity)? @ -None Was patient admitted / discharged? Hospital course, mention meds given and route, prescriptions, significant lab abnormalities, going to OR and other pertinent info. @ -Discharge patient's CT is negative acute process, patient feels improved will follow-up surgery for persistent pain. Undiagnosed new problem with uncertain prognosis? @ -No Drug Therapy requiring intensive monitoring for toxicity (Heparin, Nitro, Insuli n, Cardizem)? @ -No Were any procedures done? @ -No Diagnosis/symptom? @ -Abdominal pain Acute, or Chronic, or Acute on Chronic? @ -Acute Uncomplicated (without systemic symptoms) or Complicated (systemic symptoms)? @ -Uncomplicated Side effects of treatment? @ -No Exacerbation, Progression, or Severe Exacerbation? @ -No Poses a threat to life or bodily function? How? (Chest pain, [place], [place], pneumonia, PE, COPD, DKA, ARF, appy, cholecystitis, CVA, Diverticulitis, Homicidal, Suicidal, threat to staff... and all critical care pts) @ -No - Lab Data Result diagrams: 01/14/24 12:58 01/14/24 12:58 Lab Results 01/14/24 01/14/24 01/14/24 Range/Units 12:58 12:58 14:24 WBC 9.0 (3.8-10.6) k/uL RBC 5.10 (4.30-5.90) m/uL Hgb 15.2 (13.0-17.5) gm/dL Hct 45.3 (39.0-53.0) % MCV 88.9 (80.0-100.0) fL MCH 29.8 (25.0-35.0) pg MCHC 33.6 (31.0-37.0) g/dL RDW 13.1 (11.5-15.5) % Plt Count 281 (150-450) k/uL MPV 6.9 Neutrophils % 73 % Lymphocytes % 19 % Monocytes % 5 % Eosinophils % 1 % Basophils % 0 % Neutrophils # 6.5 (1.3-7.7) k/uL Lymphocytes # 1.7 (1.0-4.8) k/uL Monocytes # 0.4 (0-1.0) k/uL Eosinophils # 0.1 (0-0.7) k/uL Basophils # 0.0 (0-0.2) k/uL Sodium 140 (137-145) mmol/L Potassium 3.9 (3.5-5.1) mmol/L Chloride 105 (98-107) mmol/L Carbon Dioxide 31 H (22-30) mmol/L Anion Gap 4 mmol/L BUN 13 (9-20) mg/dL Creatinine 0.84 (0.66-1.25) mg/dL Est GFR (CKD-EPI)AfAm >90 (>60 ml/min/1.73 sqM) Est GFR (CKD-EPI)NonAf >90 (>60 ml/min/1.73 sqM) Glucose 79 (74-99) mg/dL Calcium 9.0 (8.4-10.2) mg/dL Total Bilirubin 0.6 (0.2-1.3) mg/dL AST 25 (17-59) U/L ALT 16 (4-49) U/L Alkaline Phosphatase 51 (38-126) U/L Total Protein 6.1 L (6.3-8.2) g/dL Albumin 3.9 (3.5-5.0) g/dL Urine Color Colorless Urine Appearance Clear (Clear) Urine pH 7.5 (5.0-8.0) Ur Specific [place] >1.050 H (1.001-1.035) Urine Protein Negative (Negative) Urine Glucose (UA) Negative (Negative) Urine Ketones Negative (Negative) Urine Blood Negative (Negative) Urine Nitrite Negative (Negative) Urine Bilirubin Negative (Negative) Urine Urobilinogen <2.0 (<2.0) mg/dL Ur Leukocyte Esterase Negative (Negative) Disposition Clinical Impression: Abdominal pain Disposition: HOME SELF-CARE Condition: Stable Instructions (If sedation given, give patient instructions): Abdominal Pain (ED) Additional Instructions: Please return to the Emergency Department if symptoms worsen or any other concerns. Is patient prescribed a controlled substance at d/c from ED?: No Referrals: None,Stated [Primary Care Provider] - 1-2 days Ehsan Whitfield MD [STAFF PHYSICIAN] - 1-2 days Time of Disposition: 13:59
[2024-01-14 13:08] LABS: Basophils % (A) 0 %; Eosinophils # (A) 0.1 k/uL (0-0.7); Eosinophils % (A) 1 %; HCT 45.3 % (39.0-53.0); HGB 15.2 gm/dL (13.0-17.5); Lymphocytes # (A) 1.7 k/uL (1.0-4.8); Lymphocytes % (A) 19 %; MCH 29.8 pg (25.0-35.0); MCHC 33.6 g/dL (31.0-37.0); MCV 88.9 fL (80.0-100.0); Mean Platelet Volume 6.9; Monocytes # (A) 0.4 k/uL (0-1.0); Monocytes % (A) 5 %; Neutrophils # (A) 6.5 k/uL (1.3-7.7); Neutrophils % (A) 73 %; Platelet Count 281 k/uL (150-450); RDW 13.1 % (11.5-15.5)
[2024-01-14 13:26] LABS: ALT 16 U/L (4-49); AST 25 U/L (17-59); African American GFR (CKD) >90 (>60 ml/min/1.73 sqM); Albumin 3.9 g/dL (3.5-5.0); Alkaline Phosphatase 51 U/L (38-126); Anion Gap 4 mmol/L; Blood Urea Nitrogen 13 mg/dL (9-20); Carbon Dioxide 31 mmol/L (22-30); Chloride 105 mmol/L (98-107); Glucose 79 mg/dL (74-99); Non-African American GFR(CKD) >90 (>60 ml/min/1.73 sqM); Potassium 3.9 mmol/L (3.5-5.1); Sodium 140 mmol/L (137-145); Total Bilirubin 0.6 mg/dL (0.2-1.3); Total Protein 6.1 g/dL (6.3-8.2)
--- NOTE | 2024-01-14 13:51 | CT ---
EXAMINATION: CT ABDOMEN AND PELVIS WITH IV CONTRAST DATE OF EXAMINATION: 01/14/2024. COMPARISON: 09/19/2022.. INDICATION: Right lower quadrant pain. PROCEDURE: Axial CT of the abdomen and pelvis was performed with contrast and sagittal and coronal reformatted images were performed. CT dose lowering techniques were used, to include: automated expos ure control, adjustment for patient size, and/or use of iterative reconstruction. 100 mL of Isovue-30 0 was given intravenously. FINDINGS: LOWER CHEST : The visualized lung bases are clear. There are no pleural or pericardial effusions. ABDOMEN: Liver and Biliary system: Normal. Adrenal glands: Normal. Kidneys and ureters: Subcentimeter hypodensity within the right kidney is too small fully characteriz e. This is unchanged. The kidneys otherwise appear unremarkable. Spleen: Normal. Pancreas: Normal. Gallbladder: Normal. Lymph nodes, Peritoneum and mesentery: There is no mesenteric or retroperitoneal lymphadenopathy. Gastrointestinal tract: There are no dilated loops of bowel or free intraperitoneal air. No evide nce of appendicitis is seen. Aorta/IVC: No aortic aneurysm. IVC normal. Abdominal wall: Normal. PELVIS: Fluid: There is no free fluid in the pelvis. Lymph Nodes: There is no pelvic or inguinal lymphadenopathy.. Urinary bladder: Normal. BONES: There are no osseous destructive lesions.. ADDITIONAL SIGNIFICANT FINDINGS: None. IMPRESSION: No acute process within the abdomen or pelvis.
[2024-01-14 14:33] LABS: Appearance,Urine Clear (Clear); Bilirubin,Urine Negative (Negative); Blood,Urine Negative (Negative); Color,Urine Colorless; Glucose,Urine (UA) Negative (Negative); Ketones,Urine Negative (Negative); Leukocyte Esterase,Urine Negative (Negative); Nitrite,Urine Negative (Negative); PH, Urine 7.5 (5.0-8.0); Protein,Urine Negative (Negative); Urobilinogen,Urine <2.0 mg/dL (<2.0)
[2024-01-14 14:40] LABS: Specific Gravity,Urine >1.050 (1.001-1.035)
== END 2024-01-14 14:26 | disposition home or self-care (01) ==
LOC: EC 11:38
DX: R10.9 Unspecified abdominal pain (principal); F12.90 Cannabis use, unspecified, uncomplicated; F17.290 Nicotine dependence, other tobacco product, uncomplicated; Z88.8 Allergy status to other drugs, medicaments and biological substances; Z88.1 Allergy status to other antibiotic agents
CPT/HCPCS: 36415; 80053; 85025; 81003; 74177; 99284; Q9967

== ENCOUNTER 2024-02-03 05:36 | Day surgery (SDC) | payer OTHER ==
[2024-01-29 15:14] VITALS: BMI 24.3
[~2024-02-03 05:36] MED LIST: HEPARIN SODIUM,PORCINE 5,000 UNIT/ML 1 ML VIAL SQ PRN
[2024-02-03] MEDS: LACTATED RINGERS 1,000 ML IV SCH (06:57)
[2024-02-03] MEDS: DEXAMETHASONE SOD PHOSPHATE 4 MG/ML 1 ML VIAL IV ONE (06:58)
[2024-02-03] MEDS: ONDANSETRON 4 MG/2 ML VIAL IVP ONE (06:58)
[2024-02-03] MEDS: ACETAMINOPHEN TAB 500 MG TAB PO PRN (06:58)
[2024-02-03] MEDS ORDERED: HYDROmorphone 0.5 MG/0.5 ML SYRINGE IVP PRN (07:00)
[2024-02-03] MEDS: MIDAZOLAM 2 MG/2 ML VIAL IVP ONE (07:17)
[2024-02-03] MEDS: HEPARIN SODIUM,PORCINE 5,000 UNIT/ML 1 ML VIAL SQ ONE (07:25)
[2024-02-03] MEDS: LIDOCAINE 2%-EPI 1:100,000 20 ML VIAL SQ ONE ×2 (07:30→07:57)
[2024-02-03] MEDS ORDERED: SUCCINYLCHOLINE CHLORIDE 200 MG/10 ML VIAL IV ONE (07:32)
[2024-02-03] MEDS ORDERED: PROPOFOL 10 MG/ML 20 ML VIAL IV ONE (07:32)
[2024-02-03] MEDS ORDERED: GLYCOPYRROLATE 0.2 MG/ML 2 ML VIAL ONE (07:32)
[2024-02-03] MEDS ORDERED: fentaNYL (PF) 50 MCG/ML 2 ML AMP ONE (07:32)
[2024-02-03] MEDS ORDERED: NEOSTIGMINE 1 MG/ML 10 ML VIAL ONE (07:32)
[2024-02-03] MEDS ORDERED: KETAMINE HCL IN 0.9 % NACL 50 MG/5 ML SYRINGE ONE (07:32)
[2024-02-03] MEDS ORDERED: KETOROLAC 15 MG/ML 1 ML VIAL ONE (07:32)
[2024-02-03] MEDS: LACTATED RINGERS 1,000 ML IV ONE (08:18)
--- NOTE | 2024-02-03 08:29 | P.OP ---
Date of Procedure: 02/03/24 Preoperative Diagnosis: Bilateral inguinal hernia Postoperative Diagnosis: Bilateral inguinal hernia Procedure(s) Performed: Laparoscopic robotic system repair of bilateral internal hernia Anesthesia: DYLON Surgeon: Ehsan Whitfield Estimated Blood Loss (ml): 5 Pathology: none sent Condition: stable Disposition: PACU Description of Procedure: The patient's placed on the operating table in the supine position. The patient received general anesthesia. The patient's abdomen was prepped and draped in usual sterile fashion. The skin was anesthetized 1% local Xylocaine at the incision sites. Using an 11 blade a skin incision was made at the umbilicus. The fascia was grasped with a Kaitlyn and then the peritoneal cavity was entered with the Veress needle. Position of the Veress needle was confirmed with a positive drop test. After adequate insufflation a 5 mm trocar was placed into the peritoneal cavity. The Laparoscope was placed the peritoneal cavity. A 4 quadrant transversely) block was performed with 1% local Xylocaine. And a robotic 8 mm trocar was placed in the right lateral position and then another 8 mm robotic trochars placed in the left lateral position. The original 5 mm trocar was exchanged for a 12 mm trocar. The patient was placed in reverse Trendelenburg and then the patient was docked to the robot. Next the peritoneum over top of the right inguinal hernia was incised and then using blunt and sharp dissection and electrocautery the hernia sac was dissected free from the floor of the inguinal canal. The hernia sac was completely reduced into the peritoneal cavity. And then using the Pro shell freezing machine operator mesh the hernia was repaired. The peritoneum was then sutured with 20V lock suture. Next the peritoneum over top of the left inguinal hernia was incised and then using blunt and sharp dissection and electrocautery the hernia sac was dissected free from the floor of the inguinal canal. The hernia sac was completely reduced into the peritoneal cavity. And then using the Pro shell freezing machine operator mesh the hernia was repaired. The peritoneum was then sutured with 20V lock suture. The patient was then undocked the robot. The needle was withdrawn from the peritoneal cavity. The umbilical trocar site was closed with 0 Ethibond suture. The skin was closed interrupted 3-0 Monocryl suture. Dermabond dressing was applied. Patient was sent to recovery in stable condition.
[2024-02-03] MEDS: MEPERIDINE 50 MG/ML SYRINGE IVP ONE (08:37)
[2024-02-03 08:47] VITALS: TEMP 97
[2024-02-03 09:24] VITALS: RESP 16
[2024-02-03 10:35] VITALS: BP 104/65; PULSE 91
== END 2024-02-03 10:34 | disposition home or self-care (01) ==
LOC: OR 05:36
PROVIDERS: ATTEND Surgery
DX: K40.20 Bilateral inguinal hernia, without obstruction or gangrene, not specified as recurrent (principal); F20.9 Schizophrenia, unspecified; F31.9 Bipolar disorder, unspecified; F17.290 Nicotine dependence, other tobacco product, uncomplicated; Z98.890 Other specified postprocedural states
CPT/HCPCS: 49650; C1781 ×2; J2250; J0330; J1644; J1100; J2710; J2175; J0690; J2405; J3010; J1885; J2704

== ENCOUNTER 2024-04-09 19:20 | Emergency (ER) | payer OTHER ==
--- NOTE | 2024-04-09 20:22 | ED ---
Abdominal Pain HPI - General Source: patient Mode of arrival: ambulatory Limitations: no limitations <Chris Butler - Last Filed: 04/09/24 20:21> <Waylon Pate - Last Filed: 04/09/24 23:56> - General Stated Complaint: Post op, abd pain, groin pain Time Seen by Provider: 04/09/24 20:21 - History of Present Illness Initial Comments: 20-year-old male presenting with chief complaint of left lower quadrant pain. Patient had hernia repair surgery with Dr. Whitfield in January. Admits to nausea and vomiting. (Chris Butler) Dictation was produced using [employer]ango dictation software. please excuse any grammatical, word or spelling errors. Chief Complaint: 29-year-old male presents emergency department for abdominal pain History of Present Illness: Patient 29-year-old male presents with abdominal pain for 3 to 4 days. 2 months ago patient had hernia repair done by one of our general surgeons. Patient states he was was at work sitting down when all of a sudden he started to have some pain and bulge in his left lower abdomen. Patient had some bouts of vomiting. Denies any fever chills or night sweats. The ROS documented in this emergency department record has been reviewed and confirmed by me. Those systems with pertinent positive or negative responses have been documented in the HPI. All other systems are other negative and/or noncontributory. (Waylon Pate) - Related Data Previous Rx's Medication Instructions Recorded Acetaminophen Tab [Tylenol] 650 mg PO Q6H #30 tab 02/03/24 Docusate [Colace] 100 mg PO BID #20 capsule 02/03/24 Ibuprofen [Motrin] 600 mg PO Q6HR PRN #40 tab 02/03/24 oxyCODONE HCL [OxyIR] 5 mg PO Q6H PRN 3 Days #10 tab 02/03/24 Allergies Allergy/AdvReac Type Severity Reaction Status Date / Time ceftriaxone sodium Allergy Swelling Verified 04/09/24 20:20 [From Rocephin] azithromycin AdvReac Unknown Verified 04/09/24 20:20 Childhood Review of Systems ROS Other: All systems not noted in ROS Statement are negative. <Chris Butler - Last Filed: 04/09/24 20:21> ROS Other: All systems not noted in ROS Statement are negative. <Waylon Pate - Last Filed: 04/09/24 23:56> ROS Statement: Those systems with pertinent positive or pertinent negative responses have been documented in the HPI. Past Medical History Past Medical History: No Reported History Additional Past Medical History / Comment(s): dali inguinal hernia-abd and groin pain History of Any Multi-Drug Resistant Organisms: None Reported Additional Past Surgical History / Comment(s): bilateral knee arthroscopies, for torn meniscus Past Anesthesia/Blood Transfusion Reactions: No Reported Reaction Additional Past Anesthesia/Blood Transfusion Reaction / Comment(s): no hx blood transfusion Smoking Status: Current every day smoker, Vaper - Past Family History Father Family Medical History: Myocardial Infarction (NC) Mother Family Medical History: Unable to Obtain Additional Family Medical History / Comment(s): Mother is 37 years old and has had problems with bowel surgeries, liver failure, bipolar disorder. Brother(s) Additional Family Medical History / Comment(s): Patient has 3 half brothers and 4 half-sisters. Patient states they all have bipolar disorder, schizophrenia or depression. he does not have any children of his own.2nd to youngest brother autistic <Chris Butler - Last Filed: 04/09/24 20:21> General Exam <Chris Butler - Last Filed: 04/09/24 20:21> <Waylon Pate - Last Filed: 04/09/24 23:56> - General Exam Comments Initial Comments: Visual Physical Exam Vital signs reviewed General: Well-appearing, nontoxic, no acute distress. Head: Normocephalic, atraumatic Eyes: PERRLA, EOMI ENT: Airway patent Chest: Nonlabored breathing Skin: No visual rash, normal skin tone Neuro: Alert and oriented 3 Musculoskeletal: No gross abnormalities (Chris Butler) PHYSICAL EXAM: General Impression: Alert and oriented x3, not in acute distress HEENT: Normocephalic atraumatic, extra-ocular movements intact, pupils equal and reactive to light bilaterally, mucous membranes moist. Cardiovascular: Heart regular rate and rhythm Chest: Able to complete full sentences, no retractions, no tachypnea Abdomen: abdomen soft, n palpatory tenderness in the left lower periumbilical space, mass felt with Valsalva Musculoskeletal: Pulses present and equal in all extremities, no peripheral edema Motor: no focal deficits noted Neurological: CN II-XII grossly intact, no focal motor or sensory deficits noted Skin: Intact with no visualized rashes Psych: Normal affect and mood (Waylon Pate) Course Vital Signs 04/09/24 04/09/24 04/09/24 20:20 22:07 23:50 Temperature 98.3 F Pulse Rate 89 84 84 Respiratory 17 16 16 Rate Blood Pressure 128/80 122/66 116/75 O2 Sat by Pulse 100 100 99 Oximetry Medical Decision Making <Chris Butler - Last Filed: 04/09/24 20:21> - Lab Data Result diagrams: 04/09/24 20:28 04/09/24 20:28 <Waylon Pate - Last Filed: 04/09/24 23:56> - Medical Decision Making I performed the quick note portion of this visit, electronically signed Chris Butler PA-C (Chris Butler) Was pt. sent in by a medical professional or institution (LEANNA Culver, INFORMATION TECHNOLOGY SECURITY ANALYST, urgent care, hospital, or shelter...) When possible be specific @ -No Did you speak to anyone other than the patient for history (EMS, parent, family, police, friend...)? What history was obtained from this source @ -No Did you review nursing and triage notes (agree or disagree)? Why? @ -I reviewed and agree with nursing and triage notes Were old charts reviewed (outside hosp., previous admission, EMS record, old EKG, old radiological studies, urgent care reports/EKG's, shelter records)? Report findings @ -No old charts were reviewed Differential Diagnosis (chest pain, altered mental status, abdominal pain women, abdominal pain men, vaginal bleeding, musculoskeletal, weakness, fever, dyspnea, syncope, headache, dizziness, GI bleed, back pain, seizure, CVA, palpatations, mental health)? @ -Differential Abdominal Pain Men: Appendicitis, cholecystitis, diverticulosis, ischemic bowel, pancreatitis, hepatitis, UTI, gastroenteritis, AAA, incarcerated hernia, bowel obstruction, constipation, inflammatory bowel, hepatitis, peptic ulcer disease, splenic infarction, perforated viscus, testicular torsion, this is not meant to be an all-inclusive list EKG interpreted by me (3pts min.). @ -None done X-rays interpreted by me (1pt min.). @ -None done CT interpreted by me (1pt min.). @ -CT scan of the abdomen pelvis shows mild enteritis U/S interpreted by me (1pt. min.). @ -None done What testing was considered but not performed or refused? (CT, X-rays, U/S, labs)? Why? @ -None What meds were considered but not given or refused? Why? @ -None Did you discuss the management of the patient with other professionals (professionals i.e. DrChristy, PA, INFORMATION TECHNOLOGY SECURITY ANALYST, lab, RT, psych nurse, social science manager, punch press feeder, teacher, public information officer, human services case manager)? Give summary @ -No Was smoking cessation discussed for >3mins.? @ -No Was critical care preformed (if so, how long)? @ -No Were there social determinants of health that impacted care today? How? (Homelessness, low income, unemployed, alcoholism, drug addiction, transportation, low edu. Level, literacy, decrease access to med. care, prison, rehab)? @ -No Was there de-escalation of care discussed even if they declined (Discuss DNR or withdrawal of care, Hospice)? DNR status @ -No What co-morbidities impacted this encounter? (DM, HTN, Smoking, COPD, CAD, Cancer, CVA, ARF, Chemo, Hep., AIDS, mental health diagnosis, sleep apnea, morbid obesity)? @ -None Was patient admitted / discharged? Hospital course, mention meds given and route , prescriptions, significant lab abnormalities, going to OR and other pertinent info. @ -29-year-old male presents emergency department for abdominal pain. Patient 2 months ago had a recent hernia repair in the same area. Vital signs stable. Patient's abdomen is soft is not showing any obvious symptoms of bowel obstruction. Labs are unremarkable. CT scan shows mild enteritis. Patient reevaluated bedside 11:55 PM found to be in stable condition. Patient discharged advised follow-up with primary care doctor. Undiagnosed new problem with uncertain prognosis? @ -No Drug Therapy requiring intensive monitoring for toxicity (Heparin, Nitro, Insulin, Cardizem)? @ -No Were any procedures done? @ -No Diagnosis/symptom? Acute, or Chronic, or Acute on Chronic? Uncomplicated (without systemic symptoms) or Complicated (systemic symptoms)? @ -Enteritis Side effects of treatment? @ -No Exacerbation, Progression, or Severe Exacerbation? @ -No Poses a threat to life or bodily function? How? (Chest pain, [place], [place], pneumonia, PE, COPD, DKA, ARF, appy, cholecystitis, CVA, Diverticulitis, Homicidal, Suicidal, threat to staff... and all critical care pts) @ -No (Waylon Pate) - Lab Data Lab Results 04/09/24 04/09/24 04/09/24 Range/Units 20:28 20:28 20:28 WBC 11.0 H (3.8-10.6) k/uL RBC 4.88 (4.30-5.90) m/uL Hgb 14.2 (13.0-17.5) gm/dL Hct 42.2 (39.0-53.0) % MCV 86.6 (80.0-100.0) fL MCH 29.1 (25.0-35.0) pg MCHC 33.6 (31.0-37.0) g/dL RDW 12.7 (11.5-15.5) % Plt Count 300 (150-450) k/uL MPV 7.0 Neutrophils % 80 % Lymphocytes % 13 % Monocytes % 5 % Eosinophils % 1 % Basophils % 0 % Neutrophils # 8.8 H (1.3-7.7) k/uL Lymphocytes # 1.5 (1.0-4.8) k/uL Monocytes # 0.5 (0-1.0) k/uL Eosinophils # 0.1 (0-0.7) k/uL Basophils # 0.0 (0-0.2) k/uL Sodium 139 (137-145) mmol/L Potassium 3.7 (3.5-5.1) mmol/L Chloride 106 (98-107) mmol/L Carbon Dioxide 31 H (22-30) mmol/L Anion Gap 2 mmol/L BUN 16 (9-20) mg/dL Creatinine 0.87 (0.66-1.25) mg/dL Est GFR (CKD-EPI)AfAm >90 (>60 ml/min/1.73 sqM) Est GFR (CKD-EPI)NonAf >90 (>60 ml/min/1.73 sqM) Glucose 94 (74-99) mg/dL Plasma Lactic Acid Kayden 0.8 (0.7-2.0) mmol/L Calcium 9.3 (8.4-10.2) mg/dL Total Bilirubin 0.7 (0.2-1.3) mg/dL AST 29 (17-59) U/L ALT 19 (4-49) U/L Alkaline Phosphatase 54 (38-126) U/L Total Protein 6.3 (6.3-8.2) g/dL Albumin 4.1 (3.5-5.0) g/dL Amylase 51 (30-110) U/L Lipase 33 (23-300) U/L Urine Color Urine Appearance (Clear) Urine pH (5.0-8.0) Ur Specific [place] (1.001-1.035) Urine Protein (Negative) Urine Glucose (UA) (Negative) Urine Ketones (Negative) Urine Blood (Negative) Urine Nitrite (Negative) Urine Bilirubin (Negative) Urine Urobilinogen (<2.0) mg/dL Ur Leukocyte Esterase (Negative) Urine RBC (0-5) /hpf Urine WBC (0-5) /hpf Hyaline Casts (0-2) /lpf Urine Mucus (None) /hpf 04/09/24 Range/Units 20:35 WBC (3.8-10.6) k/uL RBC (4.30-5.90) m/uL Hgb (13.0-17.5) gm/dL Hct (39.0-53.0) % MCV (80.0-100.0) fL MCH (25.0-35.0) pg MCHC (31.0-37.0) g/dL RDW (11.5-15.5) % Plt Count (150-450) k/uL MPV Neutrophils % % Lymphocytes % % Monocytes % % Eosinophils % % Basophils % % Neutrophils # (1.3-7.7) k/uL Lymphocytes # (1.0-4.8) k/uL Monocytes # (0-1.0) k/uL Eosinophils # (0-0.7) k/uL Basophils # (0-0.2) k/uL Sodium (137-145) mmol/L Potassium (3.5-5.1) mmol/L Chloride (98-107) mmol/L Carbon Dioxide (22-30) mmol/L Anion Gap mmol/L BUN (9-20) mg/dL Creatinine (0.66-1.25) mg/dL Est GFR (CKD-EPI)AfAm (>60 ml/min/1.73 sqM) Est GFR (CKD-EPI)NonAf (>60 ml/min/1.73 sqM) Glucose (74-99) mg/dL Plasma Lactic Acid Kayden (0.7-2.0) mmol/L Calcium (8.4-10.2) mg/dL Total Bilirubin (0.2-1.3) mg/dL AST (17-59) U/L ALT (4-49) U/L Alkaline Phosphatase (38-126) U/L Total Protein (6.3-8.2) g/dL Albumin (3.5-5.0) g/dL Amylase (30-110) U/L Lipase (23-300) U/L Urine Color Yellow Urine Appearance Cloudy (Clear) Urine pH 7.5 (5.0-8.0) Ur Specific [place] 1.033 (1.001-1.035) Urine Protein 1+ H (Negative) Urine Glucose (UA) Negative (Negative) Urine Ketones 2+ H (Negative) Urine Blood Negative (Negative) Urine Nitrite Negative (Negative) Urine Bilirubin Negative (Negative) Urine Urobilinogen <2.0 (<2.0) mg/dL Ur Leukocyte Esterase Negative (Negative) Urine RBC 1 (0-5) /hpf Urine WBC 1 (0-5) /hpf Hyaline Casts 1 (0-2) /lpf Urine Mucus Few H (None) /hpf Disposition <Chris Butler - Last Filed: 04/09/24 20:21> Is patient prescribed a controlled substance at d/c from ED?: No Time of Disposition: 23:56 <Waylon Pate - Last Filed: 04/09/24 23:56> Clinical Impression: Enteritis Disposition: HOME SELF-CARE Condition: Fair Instructions (If sedation given, give patient instructions): Enteritis (ED) Referrals: None,Stated [Primary Care Provider] - 1-2 days
[2024-04-09 20:37] LABS: Basophils % (A) 0 %; Eosinophils # (A) 0.1 k/uL (0-0.7); Eosinophils % (A) 1 %; HCT 42.2 % (39.0-53.0); HGB 14.2 gm/dL (13.0-17.5); Lymphocytes # (A) 1.5 k/uL (1.0-4.8); Lymphocytes % (A) 13 %; MCH 29.1 pg (25.0-35.0); MCHC 33.6 g/dL (31.0-37.0); MCV 86.6 fL (80.0-100.0); Monocytes # (A) 0.5 k/uL (0-1.0); Monocytes % (A) 5 %; Neutrophils # (A) 8.8 k/uL (1.3-7.7); Neutrophils % (A) 80 %; Platelet Count 300 k/uL (150-450); RBC 4.88 m/uL (4.30-5.90); RDW 12.7 % (11.5-15.5)
[2024-04-09 20:51] LABS: ALT 19 U/L (4-49); AST 29 U/L (17-59); African American GFR (CKD) >90 (>60 ml/min/1.73 sqM); Albumin 4.1 g/dL (3.5-5.0); Alkaline Phosphatase 54 U/L (38-126); Amylase 51 U/L (30-110); Anion Gap 2 mmol/L; Blood Urea Nitrogen 16 mg/dL (9-20); Calcium 9.3 mg/dL (8.4-10.2); Carbon Dioxide 31 mmol/L (22-30); Chloride 106 mmol/L (98-107); Glucose 94 mg/dL (74-99); Lipase 33 U/L (23-300); Non-African American GFR(CKD) >90 (>60 ml/min/1.73 sqM); Potassium 3.7 mmol/L (3.5-5.1); Sodium 139 mmol/L (137-145); Total Bilirubin 0.7 mg/dL (0.2-1.3); Total Protein 6.3 g/dL (6.3-8.2)
[2024-04-09 20:53] LABS: Appearance,Urine Cloudy (Clear); Bilirubin,Urine Negative (Negative); Blood,Urine Negative (Negative); Color,Urine Yellow; Glucose,Urine (UA) Negative (Negative); Hyaline Casts,Urine 1 /lpf (0-2); Ketones,Urine 2+ (Negative); Leukocyte Esterase,Urine Negative (Negative); Mucus,Urine Few /hpf; Nitrite,Urine Negative (Negative); PH, Urine 7.5 (5.0-8.0); Protein,Urine 1+ (Negative); RBC,Urine 1 /hpf (0-5); Specific Gravity,Urine 1.033 (1.001-1.035); Urobilinogen,Urine <2.0 mg/dL (<2.0); WBC,Urine 1 /hpf (0-5)
[2024-04-09] MEDS: KETOROLAC 15 MG/ML 1 ML VIAL IVP STA (22:04)
[2024-04-09 22:28] VITALS: RESP 16
--- NOTE | 2024-04-09 23:41 | CT ---
EXAM: CT Abdomen and Pelvis With Intravenous Contrast CLINICAL HISTORY: ITS.REASON CT Reason: abdominal pain TECHNIQUE: Axial computed tomography images of the abdomen and pelvis with intravenous contrast. CTDI is 13.5 mGy and DLP is 638.1 mGy-cm. This CT exam was performed using one or more of the following dose reduction techniques: automated exposure control, adjustment of the mA and/or kV according to patient size, and/or use of iterative reconstruction technique. COMPARISON: CT abdomen and pelvis January 14, 2024. FINDINGS: Lung bases: Unremarkable. No mass. No consolidation. ABDOMEN: Liver: Unremarkable. No mass. Gallbladder and bile ducts: Unremarkable. No calcified stones. No ductal dilation. Pancreas: Unremarkable. No mass. No ductal dilation. Spleen: Unremarkable. No splenomegaly. Adrenals: Unremarkable. No mass. Kidneys and ureters: Unremarkable. No solid mass. No hydronephrosis. Stomach and bowel: Mild fluid-filled small bowel, with mild wall thickening, concerning for mild enteritis. No obstruction. PELVIS: Appendix: No findings to suggest acute appendicitis. Bladder: Unremarkable. No mass. Reproductive: Unremarkable as visualized. ABDOMEN and PELVIS: Intraperitoneal space: Unremarkable. No free air. No significant fluid collection. Bones/joints: No acute fracture. No dislocation. Soft tissues: Unremarkable. Vasculature: Unremarkable. No abdominal aortic aneurysm. Lymph nodes: Unremarkable. No enlarged lymph nodes. IMPRESSION: Mild fluid-filled small bowel, with mild wall thickening, concerning for mild enteritis.
[2024-04-10 00:07] VITALS: BP 115/76
[2024-04-10 00:08] VITALS: PULSE 85; TEMP 97.6
== END 2024-04-10 | disposition home or self-care (01) ==
LOC: EC 19:20
DX: K52.9 Noninfective gastroenteritis and colitis, unspecified (principal); F17.290 Nicotine dependence, other tobacco product, uncomplicated; Z88.1 Allergy status to other antibiotic agents
CPT/HCPCS: 36415; 80053; 82150; 83605; 83690; 85025; 81001; 74177; 99284; 96374; J1885; Q9967

== ENCOUNTER 2024-10-18 14:41 | Emergency (ER) | payer OTHER ==
--- NOTE | 2024-10-18 15:31 | ED ---
Abdominal Pain HPI - General Chief Complaint: Abdominal Pain Stated Complaint: Abd pain Time Seen by Provider: 10/18/24 15:10 Source: patient Mode of arrival: ambulatory Limitations: no limitations - History of Present Illness Initial Comments: 29-year-old male presenting with chief complaint of abdominal pain. Patient had hernia repair surgery with Dr. Heredia back in January. He reports that for the last month he has had some vague pain in the left lower quadrant, however yesterday the pain suddenly intensified. He feels a pulling pain in the abdomen and is worried that there is recurrence of his hernia. Pain is worse when he coughs or sneezes. He is still having regular bowel movements, no diarrhea or constipation. No dysuria or hematuria. Some nausea no vomiting. No fever. - Related Data Previous Rx's Medication Instructions Recorded Acetaminophen Tab [Tylenol] 650 mg PO Q6H #30 tab 02/03/24 Docusate [Colace] 100 mg PO BID #20 capsule 02/03/24 Ibuprofen [Motrin] 600 mg PO Q6HR PRN #40 tab 02/03/24 oxyCODONE HCL [OxyIR] 5 mg PO Q6H PRN 3 Days #10 tab 02/03/24 Allergies Allergy/AdvReac Type Severity Reaction Status Date / Time ceftriaxone sodium Allergy Swelling Verified 10/18/24 14:44 [From Rocephin] azithromycin AdvReac Unknown Verified 10/18/24 14:44 Childhood Review of Systems ROS Statement: Those systems with pertinent positive or pertinent negative responses have been documented in the HPI. ROS Other: All systems not noted in ROS Statement are negative. Past Medical History Past Medical History: No Reported History Additional Past Medical History / Comment(s): dali inguinal hernia-abd and groin pain History of Any Multi-Drug Resistant Organisms: None Reported Past Surgical History: Hernia Repair, Orthopedic Surgery Additional Past Surgical History / Comment(s): bilateral knee arthroscopies, for torn meniscus Past Anesthesia/Blood Transfusion Reactions: No Reported Reaction Additional Past Anesthesia/Blood Transfusion Reaction / Comment(s): no hx blood transfusion Past Psychological History: PTSD Smoking Status: Current every day smoker, Vaper Past Alcohol Use History: Occasional Past Drug Use History: Marijuana - Past Family History Father Family Medical History: Myocardial Infarction (RI) Mother Family Medical History: Unable to Obtain Additional Family Medical History / Comment(s): Mother is 37 years old and has had problems with bowel surgeries, liver failure, bipolar disorder. Brother(s) Additional Family Medical History / Comment(s): Patient has 3 half brothers and 4 half-sisters. Patient states they all have bipolar disorder, schizophrenia or depression. he does not have any children of his own.2nd to youngest brother autistic General Exam Limitations: no limitations General appearance: alert, in no apparent distress Head exam: Present: atraumatic, normocephalic, normal inspection Eye exam: Present: normal appearance, EOMI Neck exam: Present: normal inspection. Absent: meningismus Respiratory exam: Present: normal lung sounds bilaterally. Absent: respiratory distress, wheezes, rales, rhonchi, stridor Cardiovascular Exam: Present: regular rate, normal rhythm, normal heart sounds. Absent: systolic murmur, diastolic murmur, rubs, gallop, clicks GI/Abdominal exam: Present: soft, tenderness. Absent: distended, guarding, rebound, rigid Neurological exam: Present: alert, oriented X3 Psychiatric exam: Present: normal affect, normal mood Skin exam: Present: warm, dry Course Vital Signs 10/18/24 10/18/24 14:42 18:25 Temperature 99.1 F 98.1 F Pulse Rate 87 71 Respiratory 16 14 Rate Blood Pressure 121/82 113/68 O2 Sat by Pulse 98 97 Oximetry Medical Decision Making - Medical Decision Making Was pt. sent in by a medical professional or institution (, PA, ROUGH ROUNDER, urgent care, hospital, or assisted...) When possible be specific @ -No Did you speak to anyone other than the patient for history (EMS, parent, family, police, friend...)? What history was obtained from this source @ -No Did you review nursing and triage notes (agree or disagree)? Why? @ -I reviewed and agree with nursing and triage notes Were old charts reviewed (outside hosp., previous admission, EMS record, old EKG, old radiological studies, urgent care reports/EKG's, assisted records)? Report findings @ -No old charts were reviewed Differential Diagnosis (chest pain, altered mental status, abdominal pain women, abdominal pain men, vaginal bleeding, weakness, fever, dyspnea, syncope, headache, dizziness, GI bleed, back pain, seizure, CVA, palpatations, mental health, musculoskeletal)? @ -[facility] Differential Abdominal Pain Men: Appendicitis, cholecystitis, diverticulosis, ischemic bowel, pancreatitis, hepatitis, UTI, gastroenteritis, AAA, incarcerated hernia, bowel obstruction, constipation, inflammatory bowel, hepatitis, peptic ulcer disease, splenic infarction, perforated viscus, testicular torsion... This is not meant to be an all-inclusive list EKG interpreted by me (3pts min.). @ -As above X-rays interpreted by me (1pt min.). @ -None done CT interpreted by me (1pt min.). @ -CT shows no acute abnormality in the abdomen/pelvis or CT findings to expla in reported symptoms U/S interpreted by me (1pt. min.). @ -None done What testing was considered but not performed or refused? (CT, X-rays, U/S, labs)? Why? @ -None What meds were considered but not given or refused? Why? @ -None Did you discuss the management of the patient with other professionals (professionals i.e. , PA, ROUGH ROUNDER, lab, RT, psych nurse, outreach and education social worker, home fire alarm installer, teacher, aboriginal home school liaison officer, pillowcase cutter)? Give summary @ -No Was smoking cessation discussed for >3mins.? @ -No Was critical care preformed (if so, how long)? @ -No Were there social determinants of health that impacted care today? How? (Homelessness, low income, unemployed, alcoholism, drug addiction, transportatio n, low edu. Level, literacy, decrease access to med. care, intermediate, rehab)? @ -No Was there de-escalation of care discussed even if they declined (Discuss DNR or withdrawal of care, Hospice)? DNR status @ -No What co-morbidities impacted this encounter? (DM, HTN, Smoking, COPD, CAD, Cancer, CVA, ARF, Chemo, Hep., AIDS, mental health diagnosis, sleep apnea, morbid obesity)? @ -None Was patient admitted / discharged? Hospital course, mention meds given and route, prescriptions, significant lab abnormalities, going to OR and other pertinent info. @ -29-year-old male presenting with chief complaint of abdominal pain. It is in the left lower quadrant over the site of his hernia repair back in January with Dr. Whitfield. No obvious bulge on exam. Labs are essentially unremarkable. CT shows no acute process. Patient may have weakening of the repair and may have recurrence of his hernia, however when the patient lays flat there is no evident hernia showing that it is easily reducible. Patient is educated on all of today's findings and instructed to follow-up with his surgeon. Follow-up with PCP. Report back to ER with any new or worsening symptoms. Discussed return parameters and answered all questions. Patient conveyed verbal understanding and agreed to the plan. I discussed this case in detail with my attending Dr. Pate Undiagnosed new problem with uncertain prognosis? @ -No Drug Therapy requiring intensive monitoring for toxicity (Heparin, Nitro, Insulin, Cardizem)? @ -No Were any procedures done? @ -No Diagnosis/symptom? @ -Abdominal pain Acute, or Chronic, or Acute on Chronic? @ -Acute Uncomplicated (without systemic symptoms) or Complicated (systemic symptoms)? @ -Uncomplicated Side effects of treatment? @ -No Exacerbation, Progression, or Severe Exacerbation? @ -No Poses a threat to life or bodily function? How? (Chest pain, [place], [place], pneumonia, PE, COPD, DKA, ARF, appy, cholecystitis, CVA, Diverticulitis, Homicidal, Suicidal, threat to staff... and all critical care pts) @ -Low likelihood - Lab Data Result diagrams: 10/18/24 15:26 10/18/24 15:26 Lab Results 10/18/24 10/18/24 10/18/24 Range/Units 15:26 15:26 15:26 WBC 8.9 (3.8-10.6) k/uL RBC 5.07 (4.30-5.90) m/uL Hgb 15.2 (13.0-17.5) gm/dL Hct 45.6 (39.0-53.0) % MCV 89.9 (80.0-100.0) fL MCH 30.1 (25.0-35.0) pg MCHC 33.4 (31.0-37.0) g/dL RDW 12.8 (11.5-15.5) % Plt Count 305 (150-450) k/uL MPV 6.9 Neutrophils % 75 % Lymphocytes % 16 % Monocytes % 6 % Eosinophils % 1 % Basophils % 0 % Neutrophils # 6.7 (1.3-7.7) k/uL Lymphocytes # 1.4 (1.0-4.8) k/uL Monocytes # 0.5 (0-1.0) k/uL Eosinophils # 0.1 (0-0.7) k/uL Basophils # 0.0 (0-0.2) k/uL Sodium 139 (137-145) mmol/L Potassium 4.1 (3.5-5.1) mmol/L Chloride 104 (98-107) mmol/L Carbon Dioxide 30 (22-30) mmol/L Anion Gap 5 mmol/L BUN 9 (9-20) mg/dL Creatinine 0.89 (0.66-1.25) mg/dL Est GFR (CKD-EPI)AfAm >90 (>60 ml/min/1.73 sqM) Est GFR (CKD-EPI)NonAf >90 (>60 ml/min/1.73 sqM) Glucose 99 (74-99) mg/dL Plasma Lactic Acid [place] (0.7-2.0) mmol/L Calcium 9.2 (8.4-10.2) mg/dL Total Bilirubin 0.4 (0.2-1.3) mg/dL AST 22 (17-59) U/L ALT 19 (4-49) U/L Alkaline Phosphatase 57 (38-126) U/L Total Protein 6.3 (6.3-8.2) g/dL Albumin 4.0 (3.5-5.0) g/dL Amylase 61 (30-110) U/L Lipase 58 (23-300) U/L Urine Color Yellow Urine Appearance Turbid (Clear) Urine pH 7.5 (5.0-8.0) Ur Specific [place] 1.020 (1.001-1.035) Urine Protein Trace H (Negative) Urine Glucose (UA) Negative (Negative) Urine Ketones Negative (Negative) Urine Blood Negative (Negative) Urine Nitrite Negative (Negative) Urine Bilirubin Negative (Negative) Urine Urobilinogen <2.0 (<2.0) mg/dL Ur Leukocyte Esterase Negative (Negative) Amorphous Sediment Rare H (None) /hpf Urine Mucus Moderate H (None) /hpf 10/18/24 Range/Units 15:26 WBC (3.8-10.6) k/uL RBC (4.30-5.90) m/uL Hgb (13.0-17.5) gm/dL Hct (39.0-53.0) % MCV (80.0-100.0) fL MCH (25.0-35.0) pg MCHC (31.0-37.0) g/dL RDW (11.5-15.5) % Plt Count (150-450) k/uL MPV Neutrophils % % Lymphocytes % % Monocytes % % Eosinophils % % Basophils % % Neutrophils # (1.3-7.7) k/uL Lymphocytes # (1.0-4.8) k/uL Monocytes # (0-1.0) k/uL Eosinophils # (0-0.7) k/uL Basophils # (0-0.2) k/uL Sodium (137-145) mmol/L Potassium (3.5-5.1) mmol/L Chloride (98-107) mmol/L Carbon Dioxide (22-30) mmol/L Anion Gap mmol/L BUN (9-20) mg/dL Creatinine (0.66-1.25) mg/dL Est GFR (CKD-EPI)AfAm (>60 ml/min/1.73 sqM) Est GFR (CKD-EPI)NonAf (>60 ml/min/1.73 sqM) Glucose (74-99) mg/dL Plasma Lactic Acid [place] 1.6 (0.7-2.0) mmol/L Calcium (8.4-10.2) mg/dL Total Bilirubin (0.2-1.3) mg/dL AST (17-59) U/L ALT (4-49) U/L Alkaline Phosphatase (38-126) U/L Total Protein (6.3-8.2) g/dL Albumin (3.5-5.0) g/dL Amylase (30-110) U/L Lipase (23-300) U/L Urine Color Urine Appearance (Clear) Urine pH (5.0-8.0) Ur Specific [place] (1.001-1.035) Urine Protein (Negative) Urine Glucose (UA) (Negative) Urine Ketones (Negative) Urine Blood (Negative) Urine Nitrite (Negative) Urine Bilirubin (Negative) Urine Urobilinogen (<2.0) mg/dL Ur Leukocyte Esterase (Negative) Amorphous Sediment (None) /hpf Urine Mucus (None) /hpf Disposition Clinical Impression: Abdominal pain Disposition: HOME SELF-CARE Condition: Good Instructions (If sedation given, give patient instructions): Abdominal Pain (ED) Additional Instructions: Follow-up with your PCP and surgeon. Report back to ER with any new or worsening symptoms. Is patient prescribed a controlled substance at d/c from ED?: No Referrals: [facility] [NON-STAFF] - 1-2 days [facility] [NON-STAFF] - 1-2 days None,Stated [Primary Care Provider] - 1-2 days Ehsan Whitfield MD [STAFF PHYSICIAN] - 1-2 days Forms: Area PCPs Time of Disposition: 17:39
[2024-10-18 16:04] LABS: Basophils % (A) 0 %; Eosinophils # (A) 0.1 k/uL (0-0.7); Eosinophils % (A) 1 %; HCT 45.6 % (39.0-53.0); HGB 15.2 gm/dL (13.0-17.5); Lymphocytes # (A) 1.4 k/uL (1.0-4.8); Lymphocytes % (A) 16 %; MCH 30.1 pg (25.0-35.0); MCHC 33.4 g/dL (31.0-37.0); MCV 89.9 fL (80.0-100.0); Mean Platelet Volume 6.9; Monocytes # (A) 0.5 k/uL (0-1.0); Monocytes % (A) 6 %; Neutrophils # (A) 6.7 k/uL (1.3-7.7); Neutrophils % (A) 75 %; Platelet Count 305 k/uL (150-450); RBC 5.07 m/uL (4.30-5.90); RDW 12.8 % (11.5-15.5); WBC 8.9 k/uL (3.8-10.6)
[2024-10-18 16:14] LABS: ALT 19 U/L (4-49); AST 22 U/L (17-59); African American GFR (CKD) >90 (>60 ml/min/1.73 sqM); Alkaline Phosphatase 57 U/L (38-126); Amylase 61 U/L (30-110); Anion Gap 5 mmol/L; Blood Urea Nitrogen 9 mg/dL (9-20); Calcium 9.2 mg/dL (8.4-10.2); Carbon Dioxide 30 mmol/L (22-30); Chloride 104 mmol/L (98-107); Glucose 99 mg/dL (74-99); Lipase 58 U/L (23-300); Non-African American GFR(CKD) >90 (>60 ml/min/1.73 sqM); Potassium 4.1 mmol/L (3.5-5.1); Sodium 139 mmol/L (137-145); Total Bilirubin 0.4 mg/dL (0.2-1.3); Total Protein 6.3 g/dL (6.3-8.2)
[2024-10-18] MEDS: SODIUM CHLORIDE 0.9% 1,000 ML IV STA (16:27)
[2024-10-18] MEDS: MORPHINE SULFATE 4 MG/ML SYRINGE IVP STA (16:29)
[2024-10-18 16:56] LABS: Amorphous Sediment,Urine Rare /hpf; Appearance,Urine Turbid (Clear); Bilirubin,Urine Negative (Negative); Blood,Urine Negative (Negative); Color,Urine Yellow; Glucose,Urine (UA) Negative (Negative); Ketones,Urine Negative (Negative); Leukocyte Esterase,Urine Negative (Negative); Mucus,Urine Moderate /hpf; Nitrite,Urine Negative (Negative); PH, Urine 7.5 (5.0-8.0); Protein,Urine Trace (Negative); Urobilinogen,Urine <2.0 mg/dL (<2.0)
--- NOTE | 2024-10-18 17:12 | CT ---
EXAMINATION TYPE: CT abdomen pelvis w con DATE OF EXAM: 10/18/2024 5:02 PM COMPARISON: Multiple prior CT abdomen/pelvis studies, most recently dated 04/09/2024. CLINICAL INDICATION: Male, 29 years old with history of LLQ abdominal pain, hx hernia repair; LLQ abd ominal pain, hx hernia repair TECHNIQUE: Axial CT abdomen pelvis w con;Sagittal and coronal reformats were created on a separate w orkstation. Contrast used:100ml mL of Isovue 300 with IV Contrast, (none if empty) Oral contrast used: without Oral Contrast (none if empty) CT DLP: 679.8 mGycm, Automated exposure control for dose reduction was used. FINDINGS: LOWER CHEST: Unremarkable ABDOMEN LIVER: Unremarkable GALLBLADDER AND BILE DUCTS: Unremarkable. PANCREAS: Unremarkable. SPLEEN: Unremarkable. ADRENAL GLANDS: Unremarkable. KIDNEYS AND URETERS: No evidence of hydronephrosis or renal calculus. The ureters are unremarkable. PELVIS BLADDER: No evidence for wall thickening or mass given limitations of exam. REPRODUCTIVE: Unremarkable. ABDOMEN & PELVIS STOMACH AND BOWEL: Stomach and duodenum are unremarkable. Scattered diverticula are noted throughout the colon. No evidence of bowel obstruction. PERITONEUM/RETROPERITONEUM: No evidence of pneumoperitoneum or free fluid. VASCULATURE: No evidence of aortic aneurysm. MUSCULOSKELETAL: No acute osseous abnormalities LYMPH NODES: No gross evidence for lymphadenopathy. SOFT TISSUE/ABDOMINAL WALL: Unremarkable IMPRESSION: No acute abnormality in the abdomen/pelvis or CT findings to explain reported symptoms. [facility], , 10/18/2024 5:09 PM
[2024-10-18 18:31] VITALS: BP 113/68; PULSE 71; RESP 14; TEMP 98.1
== END 2024-10-18 18:25 | disposition home or self-care (01) ==
LOC: EC 14:41
DX: R10.32 Left lower quadrant pain (principal); F17.290 Nicotine dependence, other tobacco product, uncomplicated; Z88.1 Allergy status to other antibiotic agents; Z88.8 Allergy status to other drugs, medicaments and biological substances
CPT/HCPCS: 36415; 80053; 82150; 83605; 83690; 85025; 81001; 74177; 99284; 96374; 96361; J2270; Q9967

== ENCOUNTER 2024-10-19 19:10 | Emergency (ER) | payer OTHER ==
[2024-10-19 20:34] LABS: Appearance,Urine Clear (Clear); Basophils % (A) 0 %; Bilirubin,Urine Negative (Negative); Blood,Urine Negative (Negative); Color,Urine Colorless; Eosinophils # (A) 0.1 k/uL (0-0.7); Eosinophils % (A) 1 %; Glucose,Urine (UA) Negative (Negative); HCT 43.5 % (39.0-53.0); HGB 14.1 gm/dL (13.0-17.5); Ketones,Urine Negative (Negative); Leukocyte Esterase,Urine Negative (Negative); Lymphocytes # (A) 1.3 k/uL (1.0-4.8); Lymphocytes % (A) 13 %; MCH 29.2 pg (25.0-35.0); MCHC 32.5 g/dL (31.0-37.0); MCV 90.1 fL (80.0-100.0); Mean Platelet Volume 6.7; Monocytes # (A) 0.5 k/uL (0-1.0); Monocytes % (A) 5 %; Neutrophils # (A) 8.3 k/uL (1.3-7.7); Neutrophils % (A) 81 %; Nitrite,Urine Negative (Negative); Platelet Count 286 k/uL (150-450); Protein,Urine Negative (Negative); RBC 4.83 m/uL (4.30-5.90); RDW 12.8 % (11.5-15.5); Specific Gravity,Urine 1.004 (1.001-1.035); Urobilinogen,Urine <2.0 mg/dL (<2.0); WBC 10.4 k/uL (3.8-10.6)
[2024-10-19 20:45] LABS: ALT 19 U/L (4-49); AST 25 U/L (17-59); African American GFR (CKD) >90 (>60 ml/min/1.73 sqM); Albumin 4.2 g/dL (3.5-5.0); Alkaline Phosphatase 48 U/L (38-126); Amylase 57 U/L (30-110); Anion Gap 5 mmol/L; Blood Urea Nitrogen 9 mg/dL (9-20); Calcium 9.4 mg/dL (8.4-10.2); Carbon Dioxide 30 mmol/L (22-30); Chloride 103 mmol/L (98-107); Glucose 89 mg/dL (74-99); Lipase 47 U/L (23-300); Non-African American GFR(CKD) >90 (>60 ml/min/1.73 sqM); Potassium 3.7 mmol/L (3.5-5.1); Sodium 138 mmol/L (137-145); Total Bilirubin 0.4 mg/dL (0.2-1.3); Total Protein 6.6 g/dL (6.3-8.2)
--- NOTE | 2024-10-19 21:08 | ED ---
Abdominal Pain HPI - General Chief Complaint: Abdominal Pain Stated Complaint: Abd/Groin Pain Time Seen by Provider: 10/19/24 19:32 Source: patient Mode of arrival: ambulatory Limitations: no limitations - History of Present Illness Initial Comments: Patient is a 29-year-old man here to have evaluation of lower abdominal pain. Patient denies fever or chills. No hematemesis. Last bowel movement normal. No change in urination no testicular or scrotal pain. MD Complaint: abdominal pain -: hour(s) Location: LLQ, RLQ, suprapubic Radiation: none Migration to: no migration Severity: moderate Quality: aching Consistency: constant Improves With: nothing Worsens With: nothing Associated Symptoms: denies other symptoms - Related Data Previous Rx's Medication Instructions Recorded Acetaminophen Tab [Tylenol] 650 mg PO Q6H #30 tab 02/03/24 Docusate [Colace] 100 mg PO BID #20 capsule 02/03/24 Ibuprofen [Motrin] 600 mg PO Q6HR PRN #40 tab 02/03/24 oxyCODONE HCL [OxyIR] 5 mg PO Q6H PRN 3 Days #10 tab 02/03/24 Allergies Allergy/AdvReac Type Severity Reaction Status Date / Time ceftriaxone sodium Allergy Swelling Verified 10/19/24 19:30 [From Rocephin] azithromycin AdvReac Unknown Verified 10/19/24 19:30 Childhood Review of Systems ROS Statement: Those systems with pertinent positive or pertinent negative responses have been documented in the HPI. ROS Other: All systems not noted in ROS Statement are negative. Constitutional: Denies: fever, chills Respiratory: Denies: cough, dyspnea Cardiovascular: Denies: chest pain, palpitations, edema Gastrointestinal: Denies: abdominal pain, nausea, vomiting, diarrhea, constipation Genitourinary: Denies: dysuria, hematuria, testicular pain, testicular mass Musculoskeletal: Denies: back pain Skin: Denies: rash Neurological: Denies: headache, weakness, numbness Past Medical History Past Medical History: No Reported History Additional Past Medical History / Comment(s): dali inguinal hernia-abd and groin pain History of Any Multi-Drug Resistant Organisms: None Reported Past Surgical History: Hernia Repair, Orthopedic Surgery Additional Past Surgical History / Comment(s): bilateral knee arthroscopies, for torn meniscus Past Anesthesia/Blood Transfusion Reactions: No Reported Reaction Additional Past Anesthesia/Blood Transfusion Reaction / Comment(s): no hx blood transfusion Past Psychological History: PTSD Smoking Status: Current every day smoker, Vaper Past Alcohol Use History: Occasional Past Drug Use History: Marijuana - Past Family History Father Family Medical History: Myocardial Infarction ([place]) Mother Family Medical History: Unable to Obtain Additional Family Medical History / Comment(s): Mother is 37 years old and has had problems with bowel surgeries, liver failure, bipolar disorder. Brother(s) Additional Family Medical History / Comment(s): Patient has 3 half brothers and 4 half-sisters. Patient states they all have bipolar disorder, schizophrenia or depression. he does not have any children of his own.2nd to youngest brother autistic General Exam Limitations: no limitations General appearance: alert, in no apparent distress Head exam: Present: atraumatic, normocephalic Eye exam: Present: normal appearance. Absent: scleral icterus, conjunctival injection ENT exam: Present: normal oropharynx Neck exam: Present: normal inspection Respiratory exam: Present: normal lung sounds bilaterally. Absent: respiratory distress, wheezes, rales, rhonchi, stridor, accessory muscle use Cardiovascular Exam: Present: regular rate, normal rhythm, normal heart sounds. Absent: systolic murmur, diastolic murmur, rubs, gallop GI/Abdominal exam: Present: soft. Absent: distended, tenderness, guarding, rebound, rigid, mass, pulsatile mass, hernia Extremities exam: Present: normal inspection, normal capillary refill. Absent: pedal edema, calf tenderness Back exam: Present: normal inspection. Absent: CVA tenderness (R), CVA tenderness (L) Neurological exam: Present: alert Skin exam: Present: warm, dry, intact, normal color. Absent: rash Course Vital Signs 10/19/24 10/19/24 19:28 21:22 Temperature 98.4 F 98.1 F Pulse Rate 87 83 Respiratory 18 17 Rate Blood Pressure 133/82 149/75 O2 Sat by Pulse 98 97 Oximetry Medical Decision Making - Medical Decision Making Was pt. sent in by a medical professional or institution (, PA, PROPAGATOR LABORER, urgent care, hospital, or intermediate...) When possible be specific @ -[No] Did you speak to anyone other than the patient for history (EMS, parent, family, police, friend...)? What history was obtained from this source @ -[No] Did you review nursing and triage notes (agree or disagree)? Why? @ -[I reviewed and agree with nursing and triage notes] Were old charts reviewed (outside hosp., previous admission, EMS record, old EKG, old radiological studies, urgent care reports/EKG's, intermediate records)? Report findings @ -[No old charts were reviewed] Differential Diagnosis (chest pain, altered mental status, abdominal pain women, abdominal pain men, vaginal bleeding, weakness, fever, dyspnea, syncope, headache, dizziness, GI bleed, back pain, seizure, CVA, palpatations, mental health, musculoskeletal)? @ -[Differential Abdominal Pain Men: Appendicitis, cholecystitis, diverticulosis, ischemic bowel, pancreatitis, hepatitis, UTI, gastroenteritis, AAA, incarcerated hernia, bowel obstruction, constipation, inflammatory bowel, hepatitis, peptic ulcer disease, splenic infar ction, perforated viscus, testicular torsion, this is not meant to be an all- inclusive list EKG interpreted by me (3pts min.). @ -[As above] X-rays interpreted by me (1pt min.). @ -[None done] CT interpreted by me (1pt min.). @ -[None done] U/S interpreted by me (1pt. min.). @ -[None done] What testing was considered but not performed or refused? (CT, X-rays, U/S, labs)? Why? @ -[None] What meds were considered but not given or refused? Why? @ -[None] Did you discuss the management of the patient with other professionals (professionals i.e. , PA, PROPAGATOR LABORER, lab, RT, psych nurse, long term care social worker, tile mechanic helper, teacher, reserve officer, ed case manager)? Give summary @ -[No] Was smoking cessation discussed for >3mins.? @ -[No] Was critical care preformed (if so, how long)? @ -[No] Were there social determinants of health that impacted care today? How? (Homelessness, low income, unemployed, alcoholism, drug addiction, transportation, low edu. Level, literacy, decrease access to med. care, group home, rehab)? @ -[No] Was there de-escalation of care discussed even if they declined (Discuss DNR or withdrawal of care, Hospice)? DNR status @ -[No] What co-morbidities impacted this encounter? (DM, HTN, Smoking, COPD, CAD, Cancer, CVA, ARF, Chemo, Hep., AIDS, mental health diagnosis, sleep apnea, mo rbid obesity)? @ -[None] Was patient admitted / discharged? Hospital course, mention meds given and route, prescriptions, significant lab abnormalities, going to OR and other pertinent info. @ -[Patient is a 29-year-old man here to have evaluation of lower abdominal pain. The exam is benign, no signs of surgical cause of pain or any evidence of peritonitis. The patient's lab workup unremarkable. He is feeling better following medication. Discussed appropriate further care and follow-up as well as return parameters Undiagnosed new problem with uncertain prognosis? @ -[No] Drug Therapy requiring intensive monitoring for toxicity (Heparin, Nitro, Insulin, Cardizem)? @ -[No] Were any procedures done? @ -[No] Diagnosis/symptom? @ -[Acute abdominal pain Acute, or Chronic, or Acute on Chronic? @ -[Acute Uncomplicated (without systemic symptoms) or Complicated (systemic symptoms)? @ -[Uncomplicated Side effects of treatment? @ -[No] Exacerbation, Progression, or Severe Exacerbation? @ -[No] Poses a threat to life or bodily function? How? (Chest pain, [place], [place], pneumonia, PE, COPD, DKA, ARF, appy, cholecystitis, CVA, Diverticulitis, Homicidal, Suicidal, threat to staff... and all critical care pts) @ -[No] - Lab Data Result diagrams: 10/19/24 20:09 10/19/24 20:09 Lab Results 10/19/24 10/19/24 10/19/24 Range/Units 20:09 20:09 20:09 WBC 10.4 (3.8-10.6) k/uL RBC 4.83 (4.30-5.90) m/uL Hgb 14.1 (13.0-17.5) gm/dL Hct 43.5 (39.0-53.0) % MCV 90.1 (80.0-100.0) fL MCH 29.2 (25.0-35.0) pg MCHC 32.5 (31.0-37.0) g/dL RDW 12.8 (11.5-15.5) % Plt Count 286 (150-450) k/uL MPV 6.7 Neutrophils % 81 % Lymphocytes % 13 % Monocytes % 5 % Eosinophils % 1 % Basophils % 0 % Neutrophils # 8.3 H (1.3-7.7) k/uL Lymphocytes # 1.3 (1.0-4.8) k/uL Monocytes # 0.5 (0-1.0) k/uL Eosinophils # 0.1 (0-0.7) k/uL Basophils # 0.0 (0-0.2) k/uL Sodium 138 (137-145) mmol/L Potassium 3.7 (3.5-5.1) mmol/L Chloride 103 (98-107) mmol/L Carbon Dioxide 30 (22-30) mmol/L Anion Gap 5 mmol/L BUN 9 (9-20) mg/dL Creatinine 0.83 (0.66-1.25) mg/dL Est GFR (CKD-EPI)AfAm >90 (>60 ml/min/1.73 sqM) Est GFR (CKD-EPI)NonAf >90 (>60 ml/min/1.73 sqM) Glucose 89 (74-99) mg/dL Plasma Lactic Acid Kayden (0.7-2.0) mmol/L Calcium 9.4 (8.4-10.2) mg/dL Total Bilirubin 0.4 (0.2-1.3) mg/dL AST 25 (17-59) U/L ALT 19 (4-49) U/L Alkaline Phosphatase 48 (38-126) U/L Total Protein 6.6 (6.3-8.2) g/dL Albumin 4.2 (3.5-5.0) g/dL Amylase 57 (30-110) U/L Lipase 47 (23-300) U/L Urine Color Colorless Urine Appearance Clear (Clear) Urine pH 7.0 (5.0-8.0) Ur Specific [place] 1.004 (1.001-1.035) Urine Protein Negative (Negative) Urine Glucose (UA) Negative (Negative) Urine Ketones Negative (Negative) Urine Blood Negative (Negative) Urine Nitrite Negative (Negative) Urine Bilirubin Negative (Negative) Urine Urobilinogen <2.0 (<2.0) mg/dL Ur Leukocyte Esterase Negative (Negative) 10/19/24 Range/Units 20:09 WBC (3.8-10.6) k/uL RBC (4.30-5.90) m/uL Hgb (13.0-17.5) gm/dL Hct (39.0-53.0) % MCV (80.0-100.0) fL MCH (25.0-35.0) pg MCHC (31.0-37.0) g/dL RDW (11.5-15.5) % Plt Count (150-450) k/uL MPV Neutrophils % % Lymphocytes % % Monocytes % % Eosinophils % % Basophils % % Neutrophils # (1.3-7.7) k/uL Lymphocytes # (1.0-4.8) k/uL Monocytes # (0-1.0) k/uL Eosinophils # (0-0.7) k/uL Basophils # (0-0.2) k/uL Sodium (137-145) mmol/L Potassium (3.5-5.1) mmol/L Chloride (98-107) mmol/L Carbon Dioxide (22-30) mmol/L Anion Gap mmol/L BUN (9-20) mg/dL Creatinine (0.66-1.25) mg/dL Est GFR (CKD-EPI)AfAm (>60 ml/min/1.73 sqM) Est GFR (CKD-EPI)NonAf (>60 ml/min/1.73 sqM) Glucose (74-99) mg/dL Plasma Lactic Acid Kayden 0.8 (0.7-2.0) mmol/L Calcium (8.4-10.2) mg/dL Total Bilirubin (0.2-1.3) mg/dL AST (17-59) U/L ALT (4-49) U/L Alkaline Phosphatase (38-126) U/L Total Protein (6.3-8.2) g/dL Albumin (3.5-5.0) g/dL Amylase (30-110) U/L Lipase (23-300) U/L Urine Color Urine Appearance (Clear) Urine pH (5.0-8.0) Ur Specific [place] (1.001-1.035) Urine Protein (Negative) Urine Glucose (UA) (Negative) Urine Ketones (Negative) Urine Blood (Negative) Urine Nitrite (Negative) Urine Bilirubin (Negative) Urine Urobilinogen (<2.0) mg/dL Ur Leukocyte Esterase (Negative) Disposition Clinical Impression: Abdominal pain Disposition: HOME SELF-CARE Condition: Good Instructions (If sedation given, give patient instructions): Abdominal Pain (ED) Is patient prescribed a controlled substance at d/c from ED?: No Referrals: None,Stated [Primary Care Provider] - 1-2 days Ehsan Whitfield MD [STAFF PHYSICIAN] - 1-2 days
[2024-10-19 21:23] VITALS: BP 149/75; PULSE 83; RESP 17; TEMP 98.1
== END 2024-10-19 21:23 | disposition home or self-care (01) ==
LOC: EC 19:10
DX: R10.30 Lower abdominal pain, unspecified (principal); F17.290 Nicotine dependence, other tobacco product, uncomplicated; Z88.1 Allergy status to other antibiotic agents
CPT/HCPCS: 36415; 80053; 81003; 82150; 83605; 83690; 85025; 99284

== ENCOUNTER 2025-02-02 19:33 | Emergency (ER) | payer OTHER ==
[2025-02-02 20:08] VITALS: TEMP 98.2
--- NOTE | 2025-02-02 20:27 | ED ---
Head Injury HPI - General Chief complaint: Head Injury Stated complaint: hit head pressure on head Time Seen by Provider: 02/02/25 19:50 Source: patient, RN notes reviewed Mode of arrival: ambulatory Limitations: no limitations - History of Present Illness Initial comments: 30-year-old male with no reported medical history presenting to emergency department for complaint of headache and pressure after head injury. Patient was at work moving a large metal barrels when he hit his head on the barrel. He denies loss of consciousness time of the injury or other injuries. States that since the event he has been experiencing mild dizziness, headaches, lightheadedness. - Related Data Previous Rx's Medication Instructions Recorded Acetaminophen Tab [Tylenol] 650 mg PO Q6H #30 tab 02/03/24 Docusate [Colace] 100 mg PO BID #20 capsule 02/03/24 Ibuprofen [Motrin] 600 mg PO Q6HR PRN #40 tab 02/03/24 oxyCODONE HCL [OxyIR] 5 mg PO Q6H PRN 3 Days #10 tab 02/03/24 Allergies/Adverse reactions: Allergies Allergy/AdvReac Type Severity Reaction Status Date / Time ceftriaxone sodium Allergy Swelling Verified 02/02/25 20:08 [From Rocephin] azithromycin AdvReac Unknown Verified 02/02/25 20:08 Childhood Review of Systems ROS Statement: Those systems with pertinent positive or pertinent negative responses have been documented in the HPI. ROS Other: All systems not noted in ROS Statement are negative. Past Medical History Past Medical History: No Reported History Additional Past Medical History / Comment(s): dali inguinal hernia-abd and groin pain History of Any Multi-Drug Resistant Organisms: None Reported Past Surgical History: Hernia Repair, Orthopedic Surgery Additional Past Surgical History / Comment(s): bilateral knee arthroscopies, for torn meniscus Past Anesthesia/Blood Transfusion Reactions: No Reported Reaction Additional Past Anesthesia/Blood Transfusion Reaction / Comment(s): no hx blood transfusion Past Psychological History: PTSD Smoking Status: Current every day smoker, Vaper Past Alcohol Use History: Occasional Past Drug Use History: Marijuana - Past Family History Father Family Medical History: Myocardial Infarction ([place]) Mother Family Medical History: Unable to Obtain Additional Family Medical History / Comment(s): Mother is 37 years old and has had problems with bowel surgeries, liver failure, bipolar disorder. Brother(s) Additional Family Medical History / Comment(s): Patient has 3 half brothers and 4 half-sisters. Patient states they all have bipolar disorder, schizophrenia or depression. he does not have any children of his own.2nd to youngest brother autistic General Exam Limitations: no limitations General appearance: alert, in no apparent distress Eye exam: Present: normal appearance, PERRL, EOMI. Absent: scleral icterus, conjunctival injection, periorbital swelling ENT exam: Present: normal exam, mucous membranes moist Neck exam: Present: normal inspection. Absent: tenderness, meningismus, lymphadenopathy Respiratory exam: Present: normal lung sounds bilaterally. Absent: respiratory distress, wheezes, rales, rhonchi, stridor Cardiovascular Exam: Present: regular rate, normal rhythm, normal heart sounds. Absent: systolic murmur, diastolic murmur, rubs, gallop, clicks GI/Abdominal exam: Present: soft, normal bowel sounds. Absent: distended, tenderness, guarding, rebound, rigid Extremities exam: Present: normal inspection, full ROM, normal capillary refill. Absent: tenderness, pedal edema, joint swelling, calf tenderness Back exam: Present: normal inspection Neurological exam: Present: alert, oriented X3, CN II-XII intact Course Vital Signs 02/02/25 02/02/25 20:04 21:57 Temperature 98.2 F 98.2 F Pulse Rate 100 88 Respiratory 20 19 Rate Blood Pressure 142/89 141/80 O2 Sat by Pulse 98 98 Oximetry Medical Decision Making - Medical Decision Making Was pt. sent in by a medical professional or institution (, PA, SAXOPHONE TEACHER, urgent care, hospital, or jail...) When possible be specific @ -No Did you speak to anyone other than the patient for history (EMS, parent, family, police, friend...)? What history was obtained from this source @ -No Did you review nursing and triage notes (agree or disagree)? Why? @ -I reviewed and agree with nursing and triage notes Were old charts reviewed (outside hosp., previous admission, EMS record, old EKG, old radiological studies, urgent care reports/EKG's, jail records)? Report findings @ -No old charts were reviewed Differential Diagnosis (chest pain, altered mental status, abdominal pain women, abdominal pain men, vaginal bleeding, weakness, fever, dyspnea, syncope, headache, dizziness, GI bleed, back pain, seizure, CVA, palpatations, mental health, musculoskeletal)? @ -Concussion, contusion, intracranial hemorrhage, this is not all inclusive EKG interpreted by me (3pts min.). @ -None X-rays interpreted by me (1pt min.). @ -None done CT interpreted by me (1pt min.). @ -CT of the brain C-spine no acute process U/S interpreted by me (1pt. min.). @ -None done What testing was considered but not performed or refused? (CT, X-rays, U/S, labs)? Why? @ -None What meds were considered but not given or refused? Why? @ -None Did you discuss the management of the patient with other professionals (professionals i.e. , PA, SAXOPHONE TEACHER, lab, RT, psych nurse, social media marketing specialist, license clerk, teacher, global chief experience officer, case management assistant)? Give summary @ -No Was smoking cessation discussed for >3mins.? @ -No Was critical care preformed (if so, how long)? @ -No Were there social determinants of health that impacted care today? How? (Homelessness, low income, unemployed, alcoholism, drug addiction, transportation, low edu. Level, literacy, decrease access to med. care, residential, rehab)? @ -No Was there de-escalation of care discussed even if they declined (Discuss DNR or withdrawal of care, Hospice)? DNR status @ -No What co-morbidities impacted this encounter? (DM, HTN, Smoking, COPD, CAD, Cancer, CVA, ARF, Chemo, Hep., AIDS, mental health diagnosis, sleep apnea, morbid obesity)? @ -None Was patient admitted / discharged? Hospital course, mention meds given and route, prescriptions, significant lab abnormalities, going to OR and other pertinent info. @ -Discharge. 30-year-old male presenting with headache after head injury. Overall is well-appearing. Neurological examination completed with no acute deficits. CT is unremarkable. concussion supportive treatment discussed at bedside. Case discussed with Dr. Severino Undiagnosed new problem with uncertain prognosis? @ -No Drug Therapy requiring intensive monitoring for toxicity (Heparin, Nitro, Insulin, Cardizem)? @ -No Were any procedures done? @ -No Diagnosis/symptom? @ -concussion, head injury Acute, or Chronic, or Acute on Chronic? @ -Acute Uncomplicated (without systemic symptoms) or Complicated (systemic symptoms)? @ -unc omplicated Side effects of treatment? @ -No Exacerbation, Progression, or Severe Exacerbation? @ -No Poses a threat to life or bodily function? How? (Chest pain, [place], [place], pneumonia, PE, COPD, DKA, ARF, appy, cholecystitis, CVA, Diverticulitis, Homicidal, Suicidal, threat to staff... and all critical care pts) @ -No Disposition Clinical Impression: Concussion Disposition: HOME SELF-CARE Condition: Good Instructions (If sedation given, give patient instructions): Concussion (ED) Additional Instructions: Please return to the Emergency Department if symptoms worsen or any other con cerns. Is patient prescribed a controlled substance at d/c from ED?: No Referrals: None,Stated [Primary Care Provider] - 1-2 days Time of Disposition: 21:46
--- NOTE | 2025-02-02 20:57 | CT ---
EXAMINATION TYPE: CT brain cspine wo con CT DLP: 1377.9 mGycm, Automated exposure control for dose reduction was used. DATE OF EXAM: 02/02/2025 8:47 PM COMPARISON: None.. CLINICAL INDICATION:Male, 30 years old with history of injury, pain, ABEL; Pt states he hit left side o f head on medal around 1600. no loc noted. pt complaining of headache and pressure in head. no vomiti ng but pt complains of nausea., pain TECHNIQUE: Brain: Multiple axial CT images of the brain were obtained without IV contrast. Cspine: Axial CT images from the skull base to the inferior aspect of T2 we obtained without intraven ous contrast. Coronal and sagittal reformatted images were also reviewed. FINDINGS: Brain: Extra-axial spaces: No abnormal extra-axial fluid collections. Ventricular system: Within normal limits Cerebral parenchyma: No acute intraparenchymal hemorrhage or mass effect. The triana-white junction is well differentiated. Cerebellum: Unremarkable. Mass effect: No evidence of midline shift. Intracranial vasculature: unremarkable Soft tissues: Normal. Calvarium/osseous structures: No depressed skull fracture. Paranasal sinuses and mastoid air cells: Clear. Visualized orbits: Orbital contents are intact. Cervical spine: Fracture: None. Osseous structures: Unremarkable Vertebral alignment: Within normal limits. Spinal canal/Neural Foramina: No evidence of significant spinal canal narrowing. No evidence for sign ificant neural foraminal stenosis. Neck soft tissues: Prevertebral soft tissues are within normal limits. Other: The airway is patent. The lung apices are clear. IMPRESSION: 1. No acute intracranial process. 2. No evidence of cervical spine fracture. [facility], , 02/02/2025 8:54 PM
[2025-02-02] MEDS: ACETAMINOPHEN TAB 325 MG TAB PO STA (21:55)
[2025-02-02 21:58] VITALS: BP 141/80; PULSE 88; RESP 19
== END 2025-02-02 21:58 | disposition home or self-care (01) ==
LOC: EC 19:33
DX: S06.0X0A Concussion without loss of consciousness, initial encounter (principal); F17.290 Nicotine dependence, other tobacco product, uncomplicated; W22.8XXA Striking against or struck by other objects, initial encounter
CPT/HCPCS: 70450; 72125; 99283

== ENCOUNTER 2025-03-07 16:08 | Inpatient (IN) | payer MEDICAID, OTHER ==
--- NOTE | 2025-03-07 17:31 | ED ---
Psych HPI - General Source: patient Mode of arrival: ambulatory - History of Present Illness MD Complaint: suicidal ideation <OteroAnabell - Last Filed: 03/07/25 19:42> <Osmany San - Last Filed: 03/10/25 08:07> - General Chief Complaint: Psychiatric Symptoms Stated Complaint: Mental Health Time Seen by Provider: 03/07/25 16:19 - History of Present Illness Initial Comments: 30-year-old male presenting to the ER with suicidal ideation with plan. Patient also states he has thoughts of harming others. Patient reports polysubstance use. Denies following anyone for his mental health needs and denies taking any psychiatric medications at this time. (Anabell Otero) - Related Data Home Medications Medication Instructions Recorded Confirmed No Known Home Medications 03/07/25 03/07/25 Allergies Allergy/AdvReac Type Severity Reaction Status Date / Time ceftriaxone sodium Allergy Swelling Verified 03/07/25 17:33 [From Rocephin] onion Allergy Unknown Verified 03/08/25 00:23 azithromycin AdvReac Unknown Verified 03/07/25 17:33 Childhood Review of Systems ROS Other: All systems not noted in ROS Statement are negative. Constitutional: Denies: fever, chills Respiratory: Denies: cough, dyspnea Cardiovascular: Denies: chest pain, palpitations Gastrointestinal: Denies: nausea, vomiting Skin: Denies: rash, lesions Psychiatric: Reports: depression, suicidal thoughts <OteroAnabell - Last Filed: 03/07/25 19:42> ROS Other: All systems not noted in ROS Statement are negative. <Osmany San - Last Filed: 03/10/25 08:07> ROS Statement: Those systems with pertinent positive or pertinent negative responses have been documented in the HPI. Past Medical History Past Medical History: No Reported History Additional Past Medical History / Comment(s): dali inguinal hernia-abd and groin pain History of Any Multi-Drug Resistant Organisms: None Reported Past Surgical History: Hernia Repair, Orthopedic Surgery Additional Past Surgical History / Comment(s): bilateral knee arthroscopies, for torn meniscus Past Anesthesia/Blood Transfusion Reactions: No Reported Reaction Additional Past Anesthesia/Blood Transfusion Reaction / Comment(s): no hx blood transfusion Past Psychological History: PTSD Smoking Status: Current every day smoker, Vaper Past Alcohol Use History: Occasional Past Drug Use History: Marijuana - Past Family History Father Family Medical History: Myocardial Infarction (AR) Mother Family Medical History: Unable to Obtain Additional Family Medical History / Comment(s): Mother is 37 years old and has had problems with bowel surgeries, liver failure, bipolar disorder. Brother(s) Additional Family Medical History / Comment(s): Patient has 3 half brothers and 4 half-sisters. Patient states they all have bipolar disorder, schizophrenia or depression. he does not have any children of his own.2nd to youngest brother autistic <Anabell Otero - Last Filed: 03/07/25 19:42> General Exam Limitations: no limitations General appearance: alert, anxious Respiratory exam: Present: normal lung sounds bilaterally. Absent: respiratory distress, wheezes Cardiovascular Exam: Present: regular rate, normal rhythm GI/Abdominal exam: Present: soft. Absent: distended, tenderness Psychiatric exam: Present: depressed, suicidal ideation <Anabell Otero - Last Filed: 03/07/25 19:42> Course Vital Signs 03/07/25 03/07/25 16:18 21:36 Temperature 98.3 F 97.6 F Pulse Rate 124 H 91 Respiratory 18 17 Rate Blood Pressure 127/90 105/68 O2 Sat by Pulse 97 96 Oximetry Medical Decision Making <Anabell Otero - Last Filed: 03/07/25 19:42> - Lab Data Result diagrams: 03/09/25 07:12 03/09/25 07:12 <Osmany San - Last Filed: 03/10/25 08:07> - Medical Decision Making Was pt. sent in by a medical professional or institution (, PA, TOWER AIR TRAFFIC CONTROL SPECIALIST, urgent care, hospital, or custodial...) When possible be specific @ -No Did you speak to anyone other than the patient for history (EMS, parent, family, police, friend...)? What history was obtained from this source @ -No Did you review nursing and triage notes (agree or disagree)? Why? @ -I reviewed and agree with nursing and triage notes Were old charts reviewed (outside hosp., previous admission, EMS record, old EKG, old radiological studies, urgent care reports/EKG's, custodial records)? Report findings @ -No old charts were reviewed Differential Diagnosis? @ -Differential Mental Health Depression, anxiety, bipolar, psychosis, schizophrenia, borderline personality, situational depression, adjustment disorder, behavioral disorder, brain tumor, malingering, substance abuse, encephalopathy, medication reaction, dementia, hypothyroidism, degenerative neurologic disorder, lupus.... This is not meant to be all-inclusive list EKG interpreted by me (3pts min.). @ -As above X-rays interpreted by me (1pt min.). @ -None done CT interpreted by me (1pt min.). @ -None done U/S interpreted by me (1pt. min.). @ -None done What testing was considered but not performed or refused? (CT, X-rays, U/S, labs)? Why? @ -None What meds were considered but not given or refused? Why? @ -None Did you discuss the management of the patient with other professionals (professionals i.e. , PA, TOWER AIR TRAFFIC CONTROL SPECIALIST, lab, RT, psych nurse, manager social work, metal coater operator, teacher, chief analytics officer, complex case manager)? Give summary @ -Case was discussed with ED attending Dr. San. Case was discussed with the EPS. Patient will be admitted to inpatient unit. Was smoking cessation discussed for >3mins.? @ -No Was critical care preformed (if so, how long)? @ -No Were there social determinants of health that impacted care today? How? (Homelessness, low income, unemployed, alcoholism, drug addiction, transportation, low edu. Level, literacy, decrease access to med. care, assisted, rehab)? @ -No Was there de-escalation of care discussed even if they declined (Discuss DNR or withdrawal of care, Hospice)? DNR status @ -No What co-morbidities impacted this encounter? (DM, HTN, Smoking, COPD, CAD, Cancer, CVA, ARF, Chemo, Hep., AIDS, mental health diagnosis, sleep apnea, morbid obesity)? @ -None Was patient admitted / discharged? Hospital course, mention meds given and route, prescriptions, significant lab abnormalities, going to OR and other pertinent info. @ -Patient will be admitted to psych inpatient unit. Undiagnosed new problem with uncertain prognosis? @ -No Drug Therapy requiring intensive monitoring for toxicity (Heparin, Nitro, Insulin, Cardizem)? @ -No Were any procedures done? @ -No Diagnosis/symptom? @ -Suicidal ideation with plan Acute, or Chronic, or Acute on Chronic? @ -Acute Uncomplicated (without systemic symptoms) or Complicated (systemic symptoms)? @ -Uncomplicated Side effects of treatment? @ -No Exacerbation, Progression, or Severe Exacerbation? @ -No Poses a threat to life or bodily function? How? (Chest pain, USA, AR, pneumonia, PE, COPD, DKA, ARF, appy, cholecystitis, CVA, Diverticulitis, Homicidal, Suicidal, threat to staff... and all critical care pts) @ -No (Anabell Otero) I personally saw the patient and performed the critical portion of the service. I discussed the patient care with the resident. I directed management, care planning and final disposition of the patient. This includes, but not limited to, review of all lab work, radiological studies, EKG's, consultations, vital signs, and nursing notes. EKG interpreted by me (3pts min.) @As above X-Rays interpreted by me (1 pt min.) @None CT interpreted by me ( 1pt min.) @None U/S interpreted by me (1 pt min.) @None Critical care time of 0 minutes excluding separately billable procedures was spent in conjunction with critical care activities provided by the Resident and Attending simultaneously. I was present during no procedures for all critical portions of the procedure and as immediately available to furnish service during the entire procedure. (Osmany San) - Lab Data Lab Results 03/07/25 03/07/25 03/07/25 Range/Units 17:34 17:34 19:33 Urine Color Yellow Urine Appearance Clear (Clear) Urine pH 6.0 (5.0-8.0) Ur Specific [place] 1.027 (1.001-1.035) Urine Protein 2+ H (Negative) Urine Glucose (UA) Negative (Negative) Urine Ketones Negative (Negative) Urine Blood Negative (Negative) Urine Nitrite Negative (Negative) Urine Bilirubin Negative (Negative) Urine Urobilinogen <2.0 (<2.0) mg/dL Ur Leukocyte Esterase Negative (Negative) Urine WBC 2 (0-5) /hpf Ur Squamous Epith Cells <1 (0-4) /hpf Calcium Oxalate Crystal Moderate H (None) /hpf Urine Bacteria Rare H (None) /hpf Urine Mucus Many H (None) /hpf Urine Opiates Screen Detected H (NotDetected) Ur Oxycodone Screen Not Detected (NotDetected) Urine Methadone Screen Not Detected (NotDetected) Ur Barbiturates Screen Not Detected (NotDetected) U Tricyclic Antidepress Not Detected (NotDetected) Ur Phencyclidine Scrn Not Detected (NotDetected) Ur Amphetamines Screen Detected H (NotDetected) U Methamphetamines Scrn Not Detected (NotDetected) U Benzodiazepines Scrn Not Detected (NotDetected) Urine Cocaine Screen Not Detected (NotDetected) U Marijuana (THC) Screen Detected H (NotDetected) SARS-CoV-2 (PCR) Not Detected (Not Detectd) Disposition Is patient prescribed a controlled substance at d/c from ED?: No Decision Date: 03/07/25 Decision Time: 19:45 <Anabell Otero - Last Filed: 03/07/25 19:42> <Osmany San - Last Filed: 03/10/25 08:07> Clinical Impression: Suicidal ideation Disposition: ADMITTED IP TO THIS HOSP
[2025-03-07 17:57] LABS: Amphetamine Screen,Urine Detected (NotDetected); Barbiturate Screen,Urine Not Detected (NotDetected); Benzodiazepines Screen,Urine Not Detected (NotDetected); Cocaine Screen,Urine Not Detected (NotDetected); Methadone Screen, Urine Not Detected (NotDetected); Opiate Screen,Urine Detected (NotDetected); Oxycodone Screen, Urine Not Detected (NotDetected); Phencyclidine Screen,Urine Not Detected (NotDetected); Tricyclic Antidepressant,Urine Not Detected (NotDetected); Urn Cannabinoid Scrn Detected (NotDetected)
[2025-03-07] MEDS ORDERED: MAG HYDROX/AL HYDROX/SIMETH 355 ML BOTTLE PO PRN (21:16)
[2025-03-07] MEDS ORDERED: haloperidoL 5 MG TAB PO PRN (21:16)
[2025-03-07] MEDS ORDERED: ACETAMINOPHEN TAB 325 MG TAB PO PRN (21:16)
[2025-03-07] MEDS ORDERED: LORazepam 2 MG/ML INJ IM PRN (21:16)
[2025-03-07] MEDS ORDERED: HALOPERIDOL LACTATE 5 MG/ML 1 ML VIAL IM PRN (21:16)
[2025-03-07] MEDS ORDERED: IBUPROFEN 600 MG TAB PO PRN (21:16)
[2025-03-07 21:45] LABS: Appearance,Urine Clear (Clear); Bacteria,Urine Rare /hpf; Bilirubin,Urine Negative (Negative); Blood,Urine Negative (Negative); Calcium Oxalate Crystals,Urine Moderate /hpf; Color,Urine Yellow; Glucose,Urine (UA) Negative (Negative); Ketones,Urine Negative (Negative); Leukocyte Esterase,Urine Negative (Negative); Mucus,Urine Many /hpf; Nitrite,Urine Negative (Negative); Protein,Urine 2+ (Negative); Specific Gravity,Urine 1.027 (1.001-1.035); Squamous Epithelial Cell,Urine <1 /hpf (0-4); Urobilinogen,Urine <2.0 mg/dL (<2.0); WBC,Urine 2 /hpf (0-5)
[2025-03-07] MEDS: QUEtiapine 50 MG TAB PO PRN (23:25)
[2025-03-08] MEDS: NICOTINE 14MG/24HR PATCH TRANSDERM SCH (10:18)
[2025-03-08 12:26] LABS: Basophils # (A) 0.03 10*3/uL (0.00-0.10); Basophils % (A) 0.5 %; Eosinophils # (A) 0.13 10*3/uL (0.04-0.35); Eosinophils % (A) 2.2 %; HCT 46.8 % (39.6-50.0); HGB 15.8 g/dL (13.0-17.0); Lymphocytes # (A) 1.62 10*3/uL (0.90-5.00); Lymphocytes % (A) 27.3 %; MCHC 33.8 g/dL (32.0-37.0); MCV 88.8 fL (80.0-97.0); Mean Platelet Volume 9.5 fL (9.5-12.2); Monocytes # (A) 0.45 10*3/uL (0.20-1.00); Monocytes % (A) 7.6 %; Neutrophils # (A) 3.69 10*3/uL (1.80-7.70); Neutrophils % (A) 62.2 %; Platelet Count 289 10*3/uL (140-440); RBC 5.27 10*6/uL (4.40-5.60); RDW 12.2 % (11.5-14.5); WBC 5.93 10*3/uL (4.50-10.00)
--- NOTE | 2025-03-08 12:44 | P.HP ---
Psychiatric H&P - . H&P Date: 03/08/25 History & Physical: Allergies Allergy/AdvReac Type Severity Reaction Status Date / Time ceftriaxone sodium Allergy Swelling Verified 03/07/25 17:33 [From Rocephin] onion Allergy Unknown Verified 03/08/25 00:23 azithromycin AdvReac Unknown Verified 03/07/25 17:33 Childhood Vital Signs Temp 97.4 F L 03/08/25 09:00 Pulse 95 03/08/25 09:00 Resp 22 03/07/25 22:50 BP 120/76 03/08/25 09:00 Pulse Ox 99 03/08/25 09:00 FiO2 Intake & Output 03/07/25 03/08/25 03/08/25 18:59 06:59 18:59 Weight 68.039 kg 69.485 kg Laboratory Last Values Urine Color Yellow 03/07/25 17:34 Urine Appearance Clear (Clear) 03/07/25 17:34 Urine pH 6.0 (5.0-8.0) 03/07/25 17:34 Ur Specific [place] 1.027 (1.001-1.035) 03/07/25 17:34 Urine Protein 2+ (Negative) H 03/07/25 17:34 Urine Glucose (UA) Negative (Negative) 03/07/25 17:34 Urine Ketones Negative (Negative) 03/07/25 17:34 Urine Blood Negative (Negative) 03/07/25 17:34 Urine Nitrite Negative (Negative) 03/07/25 17:34 Urine Bilirubin Negative (Negative) 03/07/25 17:34 Urine Urobilinogen <2.0 mg/dL (<2.0) 03/07/25 17:34 Ur Leukocyte Esterase Negative (Negative) 03/07/25 17:34 Urine WBC 2 /hpf (0-5) 03/07/25 17:34 Ur Squamous Epith Cells <1 /hpf (0-4) 03/07/25 17:34 Calcium Oxalate Crystal Moderate /hpf (None) H 03/07/25 17:34 Urine Bacteria Rare /hpf (None) H 03/07/25 17:34 Urine Mucus Many /hpf (None) H 03/07/25 17:34 Urine Opiates Screen Detected (NotDetected) H 03/07/25 17:34 Ur Oxycodone Screen Not Detected (NotDetected) 03/07/25 17:34 Urine Methadone Screen Not Detected (NotDetected) 03/07/25 17:34 Ur Barbiturates Screen Not Detected (NotDetected) 03/07/25 17:34 U Tricyclic Antidepress Not Detected (NotDetected) 03/07/25 17:34 Ur Phencyclidine Scrn Not Detected (NotDetected) 03/07/25 17:34 Ur Amphetamines Screen Detected (NotDetected) H 03/07/25 17:34 U Methamphetamines Scrn Not Detected (NotDetected) 03/07/25 17:34 U Benzodiazepines Scrn Not Detected (NotDetected) 03/07/25 17:34 Urine Cocaine Screen Not Detected (NotDetected) 03/07/25 17:34 U Marijuana (THC) Screen Detected (NotDetected) H 03/07/25 17:34 SARS-CoV-2 (PCR) Not Detected (Not Detectd) 03/07/25 19:33 03/08/25 12:06 IDENTIFYING DATA: Patient is a 30 year old male , he is single he has 1 daughter, he is unemployed, he lives with a friend in a trailer. HPI: Patient presented to the hospital yesterday for psychiatric evaluation. Patient was seen by EPS nurse and according to note "pt resting in room. pt states, "Urges to hurt myself are very common, but its been much more frequently and more severe. I also been having thoughts of hurting others recently." pt reports that he has been struggling with worsening mental health symptoms for the past couple of months, but that it has worsened significantly in the past couple of days. pt states that he came to the hospital today because he has now been having intrusive thoughts of hurting others. pt reports SI with plan to cut or drive his car into a guardrail when he is doing his job at [employer]. pt also reports HI towards multiple friends and family and verbalizes having "multiple, multiple" plans. These include "just sheer physical violence," using ammonia and bleach, using brake fluid and bleach, and also "Napalm isn't that hard to make." pt reports that he has visual hallucinations of people that are "just standing there," but denies any auditory hallucinations. pt reports that his sleep "varies" where he will "sometimes not sleep and sometimes sleep too much." pt also reports fluctuating appetite. pt reports that he does use substances. pt states, "You'll find some stuff in my urine." pt was somewhat evasive when questioned about substances that he would test positive for until admitting that there will "probably be cocaine, opiates, someone gave me an Adderall a couple days ago, and weed." UDS positive for opiates, amphetamines, and cannabinoids. pt states, "I have a habit of using street drugs to self-medicate." No delusional thoughts verbalized. pt cooperative with assessment." Patient was admitted psychiatrically. He was laying in bed agreeable to speak to senior copywriter today. Appeared to be disheveled in appearance appeared to be tired, he initially was fairly concrete, irritable. States that he had a decline in his "mental state" he was fairly vague about what this meant. Also vague about any stressors at home. Claims that he is a "creative person" and was having fantasies and thoughts of harming others and even himself. Claims that he did superficially cut himself and he does have a history of cutting his arm. His arm appeared to be have well-healed scars. Claims that for the past couple months he has been worsening. Claims that he lost his job about a month ago due to having heart issues and going for an EKG. He states that he is unemployed at this time difficulty with finances. States that he he is having mood swings, easily agitated irritable, also endorsing depression and anxiety. Claims that he is still having suicidal thoughts and homicidal ideations however no specific plan or target. Denies any auditory hallucinations, does claim that he did have visual hallucination of "seeing people" that were not actually there. Claims that his sleep and appetite have been on and off. Not endorsing any paranoia at this time. His urine drug screen is positive for opiates amphetamines and THC, he did state that he has been abusing these including cocaine as well and also "popping Adderall" when he has been driving. Also claims that he smokes cigarettes. Denies any alcohol use. PAST PSYCHIATRIC HISTORY: Patient states that he has been diagnosed with PTSD, severe depression and borderline personality disorder. Past psychiatric medications: Lamictal, Depakote, Neurontin, Buspar, lithium, Effexor, Remeron and melatonin. Claims that he has been off psychiatric medications for 3 years. Previous psychiatric hospitalizations: Last psychiatric hospitalization was in 2021 Psychiatric outpatient follow-up: None, states he used to follow-up at [facility] Suicide attempts in the past: Greater than 5 attempts. History of self harm by cutting and burning. PMH: As per EMR ALLERGIES: as per EMR CHEMICAL DEPENDENCY HISTORY: as per HPI FAMILY PSYCHIATRIC/SUBSTANCE USE HISTORY: Mother has bipolar disorder, grandmother has bipolar disorder, cousins have schizophrenia and bipolar, half- brother with autism. SOCIAL HISTORY: Patient was born and raised in [place], [place]. Parents never , raised by mother and maternal grandmother. He quit school in 12th grade. He has 1 daughter. He is currently single He is currently living with a friend in a trailer Patient is currently unemployed at this time. MENTAL STATUS EXAM: General Appearance: Patient appears to be thin, balding, disheveled appearance stated age, has multiple self-inflicted ramsey on his forearms, otherwise has poor hygiene and grooming. Behavior: Patient is seated without any agitated behavior. Poor eye contact, irritable Speech: Patient's speech is fluent and non-pressured. Irritable tone, fairly evasive and guarded Mood/Affect: Patient reports his mood is depressed and admitting to mood swings, affect is congruent and constricted. Suicidality/Homicidality: Patient admits to having active homicidal ideation, no specific intent or plan. He reports suicidal ideations, no specific plan Perceptions: Patient denies any current visual hallucinations and denies any auditory hallucinations. Though content/process: There is no evidence of any delusional thought content and thought process is linear and goal-directed. Memory and concentration: AOX3, grossly intact for the purposes of this session. Can spell "WORLD" backwards Judgment and insight: Poor STRENGTHS/WEAKNESSES: Strength is that patient is resilient and is employed. Weakness is that patient has limited social support and poor finances. No ncompliant with medications INTELLECT: Average IMPRESSIONS: Mood disorder unspecified, rule out bipolar disorder versus major depressive disorder Cannabis use disorder Stimulant abuse Cocaine use disorder Borderline personality disorder PTSD Nicotine dependence PLAN: -Patient is admitted under voluntary status to [facility] for stabilization of psychiatric symptoms and safety. Patient has signed adult voluntary form and medication consent and is placed in patient's chart. -Medications: Remeron 15 mg QHS for depression/sleep, Zoloft 50 mg daily for mood/anxiety, Abilify 2.5 mg daily for mood stabilization -Ativan and Haldol PRN for agitation/aggression -Patient was counselled on substance abuse and desired to cut back on use, he was not interested in rehab -Patient was informed of the risks, benefits and side effects of the medication and patient verbally consented to taking the medications. Patient signed med consent form and was placed in chart. Patient was also given information sheets on medications -Internal Medicine consult to perform medical evaluation and physical. -NRT - nicotine patch -SW on board for discharge planning. Encourage patient to participate in groups to work on coping skills. 03/08/25 12:08 03/08/25 12:36
[2025-03-08 12:50] LABS: ALT 22 U/L (4-49); AST 22 U/L (17-59); African American GFR (CKD) >90 (>60 ml/min/1.73 sqM); Albumin 3.9 g/dL (3.5-5.0); Alkaline Phosphatase 52 U/L (38-126); Anion Gap 5 mmol/L; Blood Urea Nitrogen 14 mg/dL (9-20); Carbon Dioxide 34 mmol/L (22-30); Chloride 100 mmol/L (98-107); Glucose 75 mg/dL (74-99); Non-African American GFR(CKD) >90 (>60 ml/min/1.73 sqM); Potassium 4.1 mmol/L (3.5-5.1); Sodium 139 mmol/L (137-145); Total Bilirubin 0.6 mg/dL (0.2-1.3); Total Protein 6.4 g/dL (6.3-8.2)
[2025-03-08] MEDS: ARIPiprazole 5 MG TAB PO SCH (13:01)
[2025-03-08] MEDS: SERTRALINE 50 MG TAB PO SCH (13:01)
[2025-03-08 15:17] LABS: Chol/HDL Ratio 3.01 Ratio; LDL Cholesterol,Calculated 66.2 mg/dL (0.0-131.0)
[2025-03-08] MEDS: NICOTINE GUM (POLACRILEX) 2 MG GUM BUCCAL PRN (19:13)
[2025-03-08] MEDS: MIRTAZAPINE 15 MG TAB PO SCH (21:01)
--- NOTE | 2025-03-09 01:11 | P.MDCNMH ---
<Natacha Du - Last Filed: 03/08/25 21:41> History of Present Illness H&P Date: 03/08/25 Patient is a 30 year old male with past medical history of bilateral inguinal hernia, hernia surgery is admitted to the hospital for mood disorder, substance abuse and nicotine dependence, seen today in medical consultation for medical management. Patient initially presented to the ED with suicidal ideation with plan. He also stated having thoughts of harming others. He reports polysubstance abuse. Patient reported that he had been struggling with worsening mental health symptoms for the past couple of months but that it has worsened significantly in the past couple of days. He is currently being treated with Zoloft, Seroquel, Remeron, Ativan, Haldol, Abilify. Additionally, patient reports having mild intermittent abdominal pain that he attributes to hernia for which he underwent repair surgery in January 2024. He a lso reports going to an urgent care once where he was told he has an irregular heart beat, but no abnormalities were seen on EKG. He states having tingling sensation in his arms when he is under stress. At the time of this interview, patient denies fever, chills, shortness of breath, cough, chest pain, palpitations, nausea, vomiting, hematuria, dysuria, hematochezia, melena, headache, slurred speech, dizziness, lightheadedness, blurred vision, double vision. Vitals T 97.4 F, [place] 95 bpm, RR 22, BP 120/76, oxygen saturation 99% on room air Labs show WBC 5.93, hemoglobin 13.8, platelet count 289, sodium is 139, potassium 4.1, bicarb 34, creatinine 0.9, A1c 5.4, total bilirubin 0.6, calcium 10, total cholesterol 133, triglycerides 113, LDL 66.2 UA shows 2+ protein, moderate calcium oxalate crystals, rare bacteria, many mucus Urine toxicology positive for opiates, amphetamines, marijuana SARS-CoV-2 is negative Review of systems: Pertinent positives and negatives as discussed in HPI, a complete review of systems was performed and all other systems are negative. Physical examination: Vital signs reviewed General: nontoxic, no distress, appears at stated age Derm: warm, dry, intact Head: atraumatic, normocephalic, symmetric Cardiovascular: S1 S2 reg, no murmur Lungs: CTA bilateral, no rhonchi, no rales, no accessory muscle use Abdominal: soft, non-tender to palpation Extremities: No cyanosis, clubbing, or pedal edema, scratch woo on right wrist Neuro: Alert, Oriented, Gross neurological examination did not reveal any focal deficits. Psych: Cooperative Assessment/Plan: Patient is a 30 year old male with past medical history of bilateral inguinal hernia, hernia surgery is admitted to the hospital for mood disorder, substance abuse and nicotine dependence, seen today in medical consultation for medical management. #. Tobacco dependence Continue Nicotine patch #. Constipation Continue Milk of magnesia #. GI upset Continue Maalox #. Metabolic alkalosis bicarb elevated at 34 Monitor BMP #. Mood disorder #. Stimulant abuse Patient receiving Zoloft, Seroquel, Remeron, Ativan, Haldol, Abilify per primary admitting team Monitor vital signs Monitor CBC Monitor BMP Dictation was produced using [employer] dictation software. please excuse any grammatical, word or spelling errors. Natacha Du MD PGY-1 IM Past Medical History Past Medical History: No Reported History Additional Past Medical History / Comment(s): dali inguinal hernia-abd and groin pain History of Any Multi-Drug Resistant Organisms: None Reported Past Surgical History: Hernia Repair, Orthopedic Surgery Additional Past Surgical History / Comment(s): bilateral knee arthroscopies, for torn meniscus Past Anesthesia/Blood Transfusion Reactions: No Reported Reaction Additional Past Anesthesia/Blood Transfusion Reaction / Comment(s): no hx blood transfusion Past Psychological History: PTSD Additional Psychological History / Comment(s): schizophrenia rediagnosed as personality disorder,ODD with last hospitalization Smoking Status: Current every day smoker, Vaper Past Alcohol Use History: None Reported Additional Past Alcohol Use History / Comment(s): pt reports smoking cigarettes and states he has been smoking about 2 PPD. pt states that he began smoking at age 10. Per past medical record, pt had reported he started smoking as an early teen. Past Drug Use History: Cocaine, Marijuana, Methamphetamine, Opiates Additional Drug Use History / Comment(s): pt reports "self-medicating" with "street drugs." pt reports hx of cocaine, amphetamine, methamphetamine, benzo, and opiate abuse. pt reports that he was given a [place] by a friend "recently" but unsure when and that he was given Adderall "a couple days ago." pt also rep orts that he "took just a couple hits off a doobie" prior to arrival despite smelling very strongly of marijuana. UDS positive opiates, amphetamines, and cannabis - Past Family History Father Family Medical History: Myocardial Infarction (ID) Mother Family Medical History: Unable to Obtain Additional Family Medical History / Comment(s): Mother is 37 years old and has had problems with bowel surgeries, liver failure, bipolar disorder. Brother(s) Additional Family Medical History / Comment(s): Patient has 3 half brothers and 4 half-sisters. Patient states they all have bipolar disorder, schizophrenia or depression. he does not have any children of his own.2nd to youngest brother autistic Medications and Allergies Home Medications Medication Instructions Recorded Confirmed Type No Known Home Medications 03/07/25 03/07/25 History Allergies Allergy/AdvReac Type Severity Reaction Status Date / Time ceftriaxone sodium Allergy Swelling Verified 03/07/25 17:33 [From Rocephin] onion Allergy Unknown Verified 03/08/25 00:23 azithromycin AdvReac Unknown Verified 03/07/25 17:33 Childhood Physical Exam Vitals: Vital Signs Temp Pulse Pulse Resp BP BP Pulse Ox 03/08/25 09:00 97.4 F L 95 120/76 99 03/07/25 22:50 97.4 F L 94 22 134/79 99 03/07/25 21:36 97.6 F 91 17 105/68 96 Results CBC & Chem 7: 03/08/25 11:39 03/08/25 11:39 Labs: Abnormal Lab Results - Last 24 Hours (Table) 03/07/25 03/08/25 Range/Units 17:34 11:39 Carbon Dioxide 34 H (22-30) mmol/L Urine Protein 2+ H (Negative) Calcium Oxalate Crystal Moderate H (None) /hpf Urine Bacteria Rare H (None) /hpf Urine Mucus Many H (None) /hpf <Falguni Bahena - Last Filed: 03/09/25 01:11> History of Present Illness I Discussed the case with the resident and agree with the resident's findings I edited the assessment and plan as necessary as documented in the resident's note. Physical Exam Vitals: Vital Signs Temp Pulse BP Pulse Ox 03/08/25 21:00 98.2 F 88 149/90 03/08/25 09:00 97.4 F L 95 120/76 99 Cranial Nerve Examination - Cranial Nerves Cranial Nerve II- Optic: Intact Cranial Nerve III- Oculomotor: Intact Cranial Nerve IV- Trochlear: Intact Cranial Nerve V- Trigeminal: Intact Cranial Nerve - Abducens: Intact Cranial Nerve VII- Facial: Intact Cranial Nerve VIII- Auditory: Intact Cranial Nerve IX- Glossopharyngeal: Intact Cranial Nerve X- Vagus: Intact Cranial Nerve XI- Accessory: Intact Cranial Nerve XII- Hypoglossal: Intact Results CBC & Chem 7: 03/08/25 11:39 03/08/25 11:39 Labs: Abnormal Lab Results - Last 24 Hours (Table) 03/08/25 Range/Units 11:39 Carbon Dioxide 34 H (22-30) mmol/L
[2025-03-09 07:33] LABS: HCT 46.4 % (39.6-50.0); HGB 16.1 g/dL (13.0-17.0); MCH 30.4 pg (27.0-32.0); MCHC 34.7 g/dL (32.0-37.0); MCV 87.5 fL (80.0-97.0); Platelet Count 299 10*3/uL (140-440); RDW 12.2 % (11.5-14.5); WBC 8.56 10*3/uL (4.50-10.00)
[2025-03-09 07:50] LABS: ALT 19 U/L (4-49); AST 21 U/L (17-59); African American GFR (CKD) >90 (>60 ml/min/1.73 sqM); Albumin 4.1 g/dL (3.5-5.0); Alkaline Phosphatase 66 U/L (38-126); Anion Gap 5 mmol/L; Blood Urea Nitrogen 14 mg/dL (9-20); Calcium 9.6 mg/dL (8.4-10.2); Carbon Dioxide 30 mmol/L (22-30); Chloride 103 mmol/L (98-107); Glucose 97 mg/dL (74-99); Non-African American GFR(CKD) >90 (>60 ml/min/1.73 sqM); Potassium 3.7 mmol/L (3.5-5.1); Sodium 138 mmol/L (137-145); Total Bilirubin 0.4 mg/dL (0.2-1.3); Total Protein 6.5 g/dL (6.3-8.2)
--- NOTE | 2025-03-09 11:42 | P.PN ---
Progress Note - Text Progress Note Date: 03/09/25 Interval History: Patient was seen today laying in his bed and was agreeable to speak to typewriter assembly and parts inspector in the office. Patient claims that his mood swings are mildly improving since yesterday. Claims that he has not been able to have a bowel movement since coming into the hospital, was requesting a stool softener. He states that his roommate has been a bit noisy and disruptive at nighttime and led him to have a poor night sleep. He has been mainly keeping himself in his room not interacting much with others. Continues to be disheveled in appearance claims that he will be showering tonight. Did claim his mood and anxiety have been mildly improving since yesterday. Claims that the suicidal thoughts have been improving, denies any homicidal ideations today. Denies any auditory or visual hallucinations today. He denies any other side effects from medications. MENTAL STATUS EXAM: General Appearance: Patient appears to be thin, balding, disheveled appearance stated age, has multiple self-inflicted ramsey on his forearms, otherwise has poor hygiene and grooming. Behavior: Patient is seated without any agitated behavior. Poor eye contact Speech: Patient's speech is fluent and non-pressured. less Irritable tone, fairly evasive and guarded Mood/Affect: Patient reports his mood is improving mildly, affect is congruent and constricted. Suicidality/Homicidality: Patient denies any homicidal ideation, no specific intent or plan. He reports suicidal ideations, no specific plan, this is improved Perceptions: Patient denies any current visual hallucinations and denies any auditory hallucinations. Though content/process: There is no evidence of any delusional thought content and thought process is linear and goal-directed. Fairly concrete Memory and concentration: AOX3, grossly intact for the purposes of this session Judgment and insight: Poor, improving mildly IMPRESSIONS: Mood disorder unspecified, rule out bipolar disorder versus major depressive disorder Cannabis use disorder Stimulant abuse Cocaine use disorder Borderline personality disorder PTSD Nicotine dependence PLAN: -Patient is admitted under voluntary status to [facility] for stabilization of psychiatric symptoms and safety. Patient has signed adult voluntary form and medication consent and is placed in patient's chart. -Medications: increase Remeron 30 mg QHS for depression/sleep, Zoloft 50 mg daily for mood/anxiety, increase Abilify 5 mg daily for mood stabilization. added senna-docusate for stool softening -Ativan and Haldol PRN for agitation/aggression -NRT - nicotine patch -SW on board for discharge planning. Encourage patient to participate in groups to work on coping skills. he is refusing rehab at this time
[2025-03-09] MEDS: SENNOSIDES-DOCUSATE SODIUM 1 EACH TAB PO SCH (13:58)
[2025-03-09] MEDS: MAGNESIUM HYDROXIDE 2,400 MG/30 ML CUP PO PRN (18:51)
[2025-03-09] MEDS: MIRTAZAPINE 15 MG TAB PO SCH (20:13)
[2025-03-09] MEDS: LORazepam 1 MG TAB PO PRN (20:15)
[2025-03-10] MEDS: ARIPiprazole 5 MG TAB PO SCH (08:30)
--- NOTE | 2025-03-10 11:34 | P.PN ---
Progress Note - Text Progress Note Date: 03/10/25 Interval History: Patient was seen wandering the hallways, he was agreeable to speak to field underwriter in the office. He appears to have improvement in his mood today in his affect. States that he feels less irritated, also endorsing less impulsivity. States that he had a difficult time sleeping last night due to his roommate. We spoke about increasing his Remeron which she is okay with. Claims that he is try to go to groups, continues to appear to be disheveled in appearance. States that he feels optimistic. Claims that his appetite is also improving since yesterday. Denies any auditory or visual hallucinations today. He is denying any suicidal homicidal ideations intent or plan. He denies any other side effects from medications. MENTAL STATUS EXAM: General Appearance: Patient appears to be thin, balding, disheveled appearance stated age, has multiple self-inflicted ramsey on his forearms, otherwise has mildly improved hygiene and grooming. Behavior: Patient is seated without any agitated behavior. Poor eye contact improving mildly Speech: Patient's speech is fluent and non-pressured. Mood/Affect: Patient reports his mood is improving mildly, affect is congruent and improving Suicidality/Homicidality: Patient denies any homicidal ideation, no specific intent or plan. Denies any suicidal ideations, no specific plan Perceptions: Patient denies any current visual hallucinations and denies any auditory hallucinations. Though content/process: There is no evidence of any delusional thought content and thought process is linear and goal-directed. Fairly concrete, improving mildly Memory and concentration: AOX3, grossly intact for the purposes of this session Judgment and insight: Poor, improving mildly IMPRESSIONS: Mood disorder unspecified, rule out bipolar disorder versus major depressive disorder Cannabis use disorder Stimulant abuse Cocaine use disorder Borderline personality disorder PTSD Nicotine dependence PLAN: -Patient is admitted under voluntary status to [facility] for stabilization of psychiatric symptoms and safety. Patient has signed adult voluntary form and medication consent and is placed in patient's chart. -Medications: increase Remeron 45 mg QHS for depression/sleep, Zoloft 50 mg daily for mood/anxiety, Abilify 5 mg daily for mood stabilization. senna- docusate for stool softening -Ativan and Haldol PRN for agitation/aggression -NRT - nicotine patch -SW on board for discharge planning. Encourage patient to participate in groups to work on coping skills. he is refusing rehab at this time. hopeful for discharge friday if patient is improving.
[2025-03-10] MEDS: MIRTAZAPINE 15 MG TAB PO SCH (21:18)
[2025-03-11] MEDS ORDERED: bisacodyL 5 MG TABLET.DR PO PRN (11:49)
--- NOTE | 2025-03-11 11:51 | P.PN ---
Progress Note - Text Progress Note Date: 03/11/25 Interval History: Patient was seen laying in his bed today, he was agreeable to speak to casualty underwriter in the office. Patient claims that his mood has been improving significantly since being in the hospital. Claims that he likes taking the medications not reporting any side effects at this time. Claims that there was a disruptive patient last night that prevented him from sleeping, he claims that he is trying to catch up on sleep this morning. States that he is still having issues with constipation, was agreeable to try bisacodyl as needed. Claims that his mood and anxiety are improving, has been going to some groups. Has been eating well, showering every other day. Denies any auditory or visual hallucinations today. He is denying any suicidal homicidal ideations intent or plan. He denies any other side effects from medications. MENTAL STATUS EXAM: General Appearance: Patient appears to be thin, balding, less disheveled appearance stated age, has multiple self-inflicted ramsey on his forearms, otherwise has mildly improved hygiene and grooming. Behavior: Patient is seated without any agitated behavior. improving eye contact Speech: Patient's speech is fluent and non-pressured. Mood/Affect: Patient reports his mood is improving mildly, affect is congruent and improving Suicidality/Homicidality: Patient denies any homicidal ideation, no specific intent or plan. Denies any suicidal ideations, no specific plan Perceptions: Patient denies any current visual hallucinations and denies any auditory hallucinations. Though content/process: There is no evidence of any delusional thought content and thought process is linear and goal-directed. Fairly concrete, improving mildly Memory and concentration: AOX3, grossly intact for the purposes of this session Judgment and insight: improving mildly IMPRESSIONS: Mood disorder unspecified, rule out bipolar disorder versus major depressive disorder Cannabis use disorder Stimulant abuse Cocaine use disorder Borderline personality disorder PTSD Nicotine dependence PLAN: -Patient is admitted under voluntary status to [facility] for stabilization of psychiatric symptoms and safety. Patient has signed adult voluntary form and medication consent and is placed in patient's chart. -Medications: Remeron 45 mg QHS for depression/sleep, Zoloft 50 mg daily for mood/anxiety, Abilify 5 mg daily for mood stabilization. senna-docusate for stool softening. added bisacodyl prn for constipation -Ativan and Haldol PRN for agitation/aggression -NRT - nicotine patch -SW on board for discharge planning. Encourage patient to participate in groups to work on coping skills. he is refusing rehab at this time. hopeful for discharge friday if patient is improving.
--- NOTE | 2025-03-12 12:35 | P.PN ---
Subjective Progress Note Date: 03/12/25 Patient was walking in the nash, he was agreeable to speak to contract writer in the office. Patient claims that his mood continues to improve significantly since being in the hospital. Claims that he likes taking the medications, not reporting any side effects at this time. States that Claims that his consti pation is better. He has been going to some groups. Has been eating well, showering every other day. Denies any auditory or visual hallucinations today. He is denying any suicidal homicidal ideations intent or plan. He denies any other side effects from medications. MENTAL STATUS EXAM:Pleasant, good eye contact, normal response time. General Appearance: Patient appears to be thin, balding, less disheveled appearance stated age, has multiple self-inflicted ramsey on his forearms, otherwise has mildly improved hygiene and grooming. Behavior: Patient is seated without any agitated behavior. improving eye contact Speech: Patient's speech is fluent and non-pressured. Mood/Affect: Patient reports his mood is improving mildly, affect is congruent and improving Suicidality/Homicidality: Patient denies any homicidal ideation, no specific intent or plan. Denies any suicidal ideations, no specific plan Perceptions: Patient denies any current visual hallucinations and denies any auditory hallucinations. Though content/process: There is no evidence of any delusional thought content and thought process is linear and goal-directed. Fairly concrete, improving mildly Memory and concentration: AOX3, grossly intact for the purposes of this session Judgment and insight: improving mildly IMPRESSIONS: Mood disorder unspecified, rule out bipolar disorder versus major depressive disorder Cannabis use disorder Stimulant abuse Cocaine use disorder Borderline personality disorder PTSD Nicotine dependence PLAN: -Patient is admitted under voluntary status to [facility] for stabilization of psy chiatric symptoms and safety. Patient has signed adult voluntary form and medication consent and is placed in patient's chart. -Medications: Remeron 45 mg QHS for depression/sleep, Zoloft 50 mg daily for mood/anxiety, Abilify 5 mg daily for mood stabilization. senna-docusate for stool softening. added bisacodyl prn for constipation -Ativan and Haldol PRN for agitation/aggression -NRT - nicotine patch -SW on board for discharge planning. Encourage patient to participate in groups to work on coping skills. he is refusing rehab at this time. hopeful for discharge friday if patient is improving. Objective - Vital Signs Vital signs: Vital Signs Temp 98 F 03/12/25 08:10 Pulse 93 03/12/25 08:10 Resp 16 03/12/25 08:10 BP 127/86 03/12/25 08:10 Pulse Ox 98 03/12/25 08:10 FiO2 - Labs CBC & Chem 7: 03/09/25 07:12 03/09/25 07:12
--- NOTE | 2025-03-13 11:49 | P.PN ---
Subjective Progress Note Date: 03/13/25 Principal diagnosis: Mood disorder NOS Patient was walking in the nash, socializing well with peers he was agreeable to speak to newswriter in the office. Patient claims that his mood continues to improve significantly since being in the hospital. Claims that he likes taking the medications, not reporting any side effects at this time. Claims that his constipation is better. He has been going to groups. Has been eating well, showering every other day. Denies any auditory or visual hallucinations today. He is denying any suicidal homicidal ideations intent or plan. He denies any other side effects from medications. MENTAL STATUS EXAM:Pleasant, good eye contact, normal response time. Pleasant and cooperative General Appearance: Patient appears to be thin, balding, less disheveled appearance stated age, has multiple self-inflicted ramsey on his forearms, otherwise has mildly improved hygiene and grooming. Behavior: Patient is seated without any agitated behavior. improving eye contact Speech: Patient's speech is fluent and non-pressured. Mood/Affect: Patient reports his mood is improving mildly, affect is congruent and improving Suicidality/Homicidality: Patient denies any homicidal ideation, no specific intent or plan. Denies any suicidal ideations, no specific plan Perceptions: Patient denies any current visual hallucinations and denies any auditory hallucinations. Though content/process: There is no evidence of any delusional thought content and thought process is linear and goal-directed. Fairly concrete, improving mildly Memory and concentration: AOX3, grossly intact for the purposes of this session Judgment and insight: improving mildly IMPRESSIONS: Seems to be responding very well to the medication and the program Mood disorder unspecified, rule out bipolar disorder versus major depressive disorder Cannabis use disorder Stimulant abuse Cocaine use disorder Borderline personality disorder PTSD Nicotine dependence PLAN: No change -Patient is admitted under voluntary status to [facility] for stabilization of psychiatric symptoms and safety. Patient has signed adult voluntary form and medication consent and is placed in patient's chart. -Medications: Remeron 45 mg QHS for depression/sleep, Zoloft 50 mg daily for mood/anxiety, Abilify 5 mg daily for mood stabilization. senna-docusate for stool softening. added bisacodyl prn for constipation -Ativan and Haldol PRN for agitation/aggression -NRT - nicotine patch -SW on board for discharge planning. Encourage patient to participate in groups to work on coping skills. he is refusing rehab at this time. hopeful for discharge friday if patient is improving. Objective - Vital Signs Vital signs: Vital Signs Temp 97.7 F 03/13/25 09:00 Pulse 115 H 03/13/25 09:00 Resp 16 03/13/25 09:00 BP 128/84 03/13/25 09:00 Pulse Ox 97 03/12/25 21:00 FiO2 - Labs CBC & Chem 7: 03/09/25 07:12 03/09/25 07:12
[2025-03-14 08:37] VITALS: BP 153/98; PULSE 95; RESP 16; TEMP 98.1
--- NOTE | 2025-03-14 11:11 | P.DS ---
Providers Date of admission: 03/07/25 21:12 Expected date of discharge: 03/14/25 Attending physician: Jose Miguel Sanches MD Consults: 03/07/25 21:16 Consult Physician Routine Consulting Provider: [place] Physician Consult Reason/Comments: H&P and medical Do you want consulting provider notified?: Yes Primary care physician: Stated None - Discharge Diagnosis(es) (1) Bipolar disorder current episode depressed Current Visit: Yes Status: Acute Priority: High (2) Cannabis use disorder Current Visit: Yes Status: Acute Priority: Medium (3) Nicotine dependence Current Visit: Yes Status: Acute Priority: Low (4) Stimulant abuse Current Visit: Yes Status: Acute Priority: High (5) PTSD (post-traumatic stress disorder) Current Visit: Yes Status: Acute Priority: Medium (6) Borderline personality disorder Current Visit: Yes Status: Acute Priority: Medium Hospital Course: Admission HPI: Admission note was completed by job specification writer "Patient is a 30 year old male , he is single he has 1 daughter, he is unemployed, he lives with a friend in a trailer. Patient presented to the hospital yesterday for psychiatric evaluation. Patient was seen by EPS nurse and according to note "pt resting in room. pt states, "Urges to hurt myself are very common, but its been much more frequently and more severe. I also been having thoughts of hurting others recently." pt reports that he has been struggling with worsening mental health symptoms for the past couple of months, but that it has worsened significantly in the past couple of days. pt states that he came to the hospital today because he has now been having intrusive thoughts of hurting others. pt reports SI with plan to cut or drive his car into a guardrail when he is doing his job at [employer]. pt also reports HI towards multiple friends and family and verbalizes having "multiple, multiple" plans. These include "just sheer physical violence," using ammonia and bleach, using brake fluid and bleach, and also "Napalm isn't that hard to make." pt reports that he has visual hallucinations of people that are "just standing there," but denies any auditory hallucinations. pt reports that his sleep "varies" where he will "sometimes not sleep and sometimes sleep too much." pt also reports fluctuating appetite. pt reports that he does use substances. pt states, "You'll find some stuff in my urine." pt was somewhat evasive when questioned about substances that he would test positive for until admitting that there will "probably be cocaine, opiates, someone gave me an Adderall a couple days ago, and weed." UDS positive for opiates, amphetamines, and cannabinoids. pt states, "I have a habit of using street drugs to self-medicate." No delusional thoughts verbalized. pt cooperative with assessment." Patient was admitted psychiatrically. He was laying in bed agreeable to speak to job specification writer today. Appeared to be disheveled in appearance appeared to be tired, he initially was fairly concrete, irritable. States that he had a decline in his "mental state" he was fairly vague about what this meant. Also vague about any stressors at home. Claims that he is a "creative person" and was having fantasies and thoughts of harming others and even himself. Claims that he did superficially cut himself and he does have a history of cutting his arm. His arm appeared to be have well-healed scars. Claims that for the past couple kay hs he has been worsening. Claims that he lost his job about a month ago due to having heart issues and going for an EKG. He states that he is unemployed at this time difficulty with finances. States that he he is having mood swings, easily agitated irritable, also endorsing depression and anxiety. Claims that he is still having suicidal thoughts and homicidal ideations however no specific plan or target. Denies any auditory hallucinations, does claim that he did have visual hallucination of "seeing people" that were not actually there. Claims that his sleep and appetite have been on and off. Not endorsing any paranoia at this time. His urine drug screen is positive for opiates amphetamines and THC, he did state that he has been abusing these including cocaine as well and also "popping Adderall" when he has been driving. Also claims that he smokes cigarettes. Denies any alcohol use." Hospital course: Upon admission to the unit patient was directable and agreeable to commence treatment and signed adult voluntary form. Patient was initially depressed irritable suicidal homicidal however with time and treatment patient got along well with other patients on the unit and followed unit protocol. Patient was compliant with the medications and denied any side effects throughout hospital course. Patient was started on Remeron 45 mg nightly for depression/sleep, Zoloft 50 mg daily for mood/anxiety, Abilify increased to dose of 5 mg daily for mood stabilization. Patient spoke of his stressors however did not participate much in group/activity therapy and mainly kept to themselves during hospitalization. Patient was also seen by medical team for history and physical exam. Throughout the course of the hospitalization patient gradually improved with regards to mood, anxiety, lability, suicidal thoughts, sleep and returned back to their baseline level of functioning. On the day of discharge patient denied any suicidal or homicidal ideations intent or plan denied any auditory or visual hallucinations. Patient endorsed wanting to live for their health and family. The patient denied any access to guns or weapons. Patient denied any paranoia and did not endorse any delusions. Patient does have a significant history of substance abuse and was counseled on abstaining from all substances including alcohol and marijuana. Patient was offered however declined inpatient substance-abuse rehab. Patient elected to do outpatient substance use treatment program through their outpatient provider.. Patient was also counseled on the medications and need for regular compliance and was encouraged to follow-up with their outpatient appointment for mental health and also for primary care. Mental status exam: General Appearance: Patient appears to be thin, wearing glasses, stated age is alert, pleasant, and cooperative. Patient is in no acute distress and has improved hygiene and grooming Behavior: Patient is calmly seated without any agitated behavior. Speech: Patient's speech is fluent and nonpressured. Mood/Affect: Patient reports their mood is "good", affect is congruent and euthymic. Suicidality/Homicidality: Patient denies having any suicidal or homicidal ideation intent or plan. Perceptions: Patient denies any auditory or visual hallucinations. Though content/process: There is no evidence of any delusional thought content and thought process is linear and goal-directed. More future oriented Memory and concentration: AOX3, grossly intact for the purposes of this session. Can spell "WORLD" backwards correctly. Judgment and insight: Chronically poor, however has improved with guarded prognosis Impression: Bipolar disorder current episode depressed Cannabis use disorder Stimulant abuse Cocaine use disorder Borderline personality disorder PTSD Nicotine dependence Plan: -Continue with discharge today as patient has improved and stabilized psychiatrically and is not currently an imminent threat to themself and/or others. Patient will remain at chronically elevated risk for harm to self and/or others due to their impulsivity and substance abuse. -Continue medications: Remeron 45 mg nightly for depression/sleep, Zoloft 50 mg daily for mood/anxiety, Abilify 5 mg daily for mood stabilization. -Patient was counseled on the need for medication compliance and appropriate follow-up at mental health and also primary care for medical issues. Patient verbalized understanding and agreed. -Social work to help coordinate patients discharge today. also to ensure safe home environment that guns/weapons are either removed from the home or locked away. Social work also to arrange for patients follow up appointments with [facility] for psychiatric care along with follow up with primary care provider. -Patient counseled on abstaining from recreational drugs and marijuana and alcohol. Was informed/educated on the adverse effects on their physical and mental health. Patient verbally agreed and understood. Patient was offered substance abuse treatment however declined at this time. -Patient was instructed to return to the hospital or seek immediate medical care if their psychiatric or medical symptoms do worsen or reoccur. Allergies Allergy/AdvReac Type Severity Reaction Status Date / Time ceftriaxone sodium Allergy Swelling Verified 03/07/25 17:33 [From Rocephin] onion Allergy Unknown Verified 03/08/25 00:23 azithromycin AdvReac Unknown Verified 03/07/25 17:33 Childhood Laboratory Results WBC 8.56 10*3/uL (4.50-10.00) 03/09/25 07:12 RBC 5.30 10*6/uL (4.40-5.60) 03/09/25 07:12 Hgb 16.1 g/dL (13.0-17.0) 03/09/25 07:12 Hct 46.4 % (39.6-50.0) 03/09/25 07:12 MCV 87.5 fL (80.0-97.0) 03/09/25 07:12 MCH 30.4 pg (27.0-32.0) 03/09/25 07:12 MCHC 34.7 g/dL (32.0-37.0) 03/09/25 07:12 Plt Count 299 10*3/uL (140-440) 03/09/25 07:12 MPV 9.0 fL (9.5-12.2) L 03/09/25 07:12 Immature Gran % (Auto) 0.2 % 03/08/25 11:39 Neutrophils % 62.2 % 03/08/25 11:39 Lymphocytes % 27.3 % 03/08/25 11:39 Monocytes % 7.6 % 03/08/25 11:39 Eosinophils % 2.2 % 03/08/25 11:39 Basophils % 0.5 % 03/08/25 11:39 Immature Gran # 0.01 10*3/uL (0.00-0.04) 03/08/25 11:39 Neutrophils # 3.69 10*3/uL (1.80-7.70) 03/08/25 11:39 Lymphocytes # 1.62 10*3/uL (0.90-5.00) 03/08/25 11:39 Monocytes # 0.45 10*3/uL (0.20-1.00) 03/08/25 11:39 Eosinophils # 0.13 10*3/uL (0.04-0.35) 03/08/25 11:39 Basophils # 0.03 10*3/uL (0.00-0.10) 03/08/25 11:39 Sodium 138 mmol/L (137-145) 03/09/25 07:12 Potassium 3.7 mmol/L (3.5-5.1) 03/09/25 07:12 Chloride 103 mmol/L (98-107) 03/09/25 07:12 Carbon Dioxide 30 mmol/L (22-30) 03/09/25 07:12 Anion Gap 5 mmol/L 03/09/25 07:12 BUN 14 mg/dL (9-20) 03/09/25 07:12 Creatinine 0.92 mg/dL (0.66-1.25) 03/09/25 07:12 Est GFR (CKD-EPI)AfAm >90 (>60 ml/min/1.73 sqM) 03/09/25 07:12 Est GFR (CKD-EPI)NonAf >90 (>60 ml/min/1.73 sqM) 03/09/25 07:12 Glucose 97 mg/dL (74-99) 03/09/25 07:[address] Glu mg/dL 108 mg/dL 03/08/25 11:39 Hemoglobin A1c 5.4 % (<=6.0) 03/08/25 11:39 Calcium 9.6 mg/dL (8.4-10.2) 03/09/25 07:12 Total Bilirubin 0.4 mg/dL (0.2-1.3) 03/09/25 07:12 AST 21 U/L (17-59) 03/09/25 07:12 ALT 19 U/L (4-49) 03/09/25 07:12 Alkaline Phosphatase 66 U/L (38-126) 03/09/25 07:12 Total Protein 6.5 g/dL (6.3-8.2) 03/09/25 07:12 Albumin 4.1 g/dL (3.5-5.0) 03/09/25 07:12 Triglycerides 113.00 mg/dL (0.00-149.00) 03/08/25 11:39 Cholesterol 133.00 mg/dL (0.00-200.00) 03/08/25 11:39 LDL Cholesterol, Calc 66.2 mg/dL (0.0-131.0) 03/08/25 11:39 VLDL Cholesterol, Calc 22.60 mg/dL (5.00-40.00) 03/08/25 11:39 HDL Cholesterol 44.20 mg/dL (40.00-60.00) 03/08/25 11:39 Cholesterol/HDL Ratio 3.01 Ratio 03/08/25 11:39 TSH 0.729 mIU/L (0.465-4.680) 03/08/25 11:39 Urine Color Yellow 03/07/25 17:34 Urine Appearance Clear (Clear) 03/07/25 17:34 Urine pH 6.0 (5.0-8.0) 03/07/25 17:34 Ur Specific [place] 1.027 (1.001-1.035) 03/07/25 17:34 Urine Protein 2+ (Negative) H 03/07/25 17:34 Urine Glucose (UA) Negative (Negative) 03/07/25 17:34 Urine Ketones Negative (Negative) 03/07/25 17:34 Urine Blood Negative (Negative) 03/07/25 17:34 Urine Nitrite Negative (Negative) 03/07/25 17:34 Urine Bilirubin Negative (Negative) 03/07/25 17:34 Urine Urobilinogen <2.0 mg/dL (<2.0) 03/07/25 17:34 Ur Leukocyte Esterase Negative (Negative) 03/07/25 17:34 Urine WBC 2 /hpf (0-5) 03/07/25 17:34 Ur Squamous Epith Cells <1 /hpf (0-4) 03/07/25 17:34 Calcium Oxalate Crystal Moderate /hpf (None) H 03/07/25 17:34 Urine Bacteria Rare /hpf (None) H 03/07/25 17:34 Urine Mucus Many /hpf (None) H 03/07/25 17:34 Urine Opiates Screen Detected (NotDetected) H 03/07/25 17:34 Ur Oxycodone Screen Not Detected (NotDetected) 03/07/25 17:34 Urine Methadone Screen Not Detected (NotDetected) 03/07/25 17:34 Ur Barbiturates Screen Not Detected (NotDetected) 03/07/25 17:34 U Tricyclic Antidepress Not Detected (NotDetected) 03/07/25 17:34 Ur Phencyclidine Scrn Not Detected (NotDetected) 03/07/25 17:34 Ur Amphetamines Screen Detected (NotDetected) H 03/07/25 17:34 U Methamphetamines Scrn Not Detected (NotDetected) 03/07/25 17:34 U Benzodiazepines Scrn Not Detected (NotDetected) 03/07/25 17:34 Urine Cocaine Screen Not Detected (NotDetected) 03/07/25 17:34 U Marijuana (THC) Screen Detected (NotDetected) H 03/07/25 17:34 SARS-CoV-2 (PCR) Not Detected (Not Detectd) 03/07/25 19:33 Vital Signs Temp 98.1 F 03/14/25 08:36 Pulse 95 03/14/25 08:36 Resp 16 03/14/25 08:36 BP 153/98 03/14/25 08:36 Pulse Ox 97 03/14/25 08:36 FiO2 Intake & Output 03/13/25 03/14/25 03/14/25 18:59 06:59 18:59 Weight 71.8 kg Patient Condition at Discharge: Stable Plan - Discharge Summary Discharge Rx Participant: No New Discharge Prescriptions: New ARIPiprazole [Abilify] 5 mg PO DAILY 30 Days #30 tab Nicotine Gum (Polacrilex) [Nicorette] 2 mg BUCCAL Q4HR PRN 30 Days #180 pieceofgum PRN Reason: Nicotine Cravings Mirtazapine [Remeron] 45 mg PO HS 30 Days #30 tablet Sennosides-Docusate Sodium [Senokot-S] 1 each PO BID 30 Days #60 tab Nicotine 14Mg/24Hr Patch [Habitrol] 1 patch TRANSDERM DAILY 14 Days #14 patch Sertraline [Zoloft] 50 mg PO DAILY 30 Days #30 tab Discharge Medication List ARIPiprazole [Abilify] 5 mg PO DAILY 30 Days #30 tab 03/14/25 [Rx] Mirtazapine [Remeron] 45 mg PO HS 30 Days #30 tablet 03/14/25 [Rx] Nicotine 14Mg/24Hr Patch [Habitrol] 1 patch TRANSDERM DAILY 14 Days #14 patch 03/14/25 [Rx] Nicotine Gum (Polacrilex) [Nicorette] 2 mg BUCCAL Q4HR PRN 30 Days #180 pieceofgum 03/14/25 [Rx] Sennosides-Docusate Sodium [Senokot-S] 1 each PO BID 30 Days #60 tab 03/14/25 [Rx] Sertraline [Zoloft] 50 mg PO DAILY 30 Days #30 tab 03/14/25 [Rx] Follow up Appointment(s)/Referral(s): [facility] [NON-STAFF] - 1 Week Patient Instructions/Handouts: How to Stop Smoking (DC), Bipolar Disorder (DC), Post Traumatic Stress Disorder (DC) Activity/Diet/Wound Care/Special Instructions: [facility] Discharge Info Avoid the use of street drugs and alcohol. Take all medications as prescribed. When you are in need of refills on your medications, please contact your outpatient medical provider and/or outpatient psychiatrist. Please go to your scheduled outpatient appointments for aftercare treatment. If symptoms return or become worse, call the crisis line at or and/or visit the nearest emergency room for assistance. National Suicide and Crisis Lifeline - call or text 988 Discharge Disposition: HOME SELF-CARE
== END 2025-03-14 17:15 | disposition home or self-care (01) | DRG 753 ==
LOC: EC 16:08 → 3MHU 21:12
PROVIDERS: ADMIT Psychiatry & Neurology Psychiatry; ATTEND Psychiatry & Neurology Psychiatry
DX: F31.30 Bipolar disorder, current episode depressed, mild or moderate severity, unspecified (principal); F12.10 Cannabis abuse, uncomplicated; F17.200 Nicotine dependence, unspecified, uncomplicated; F15.10 Other stimulant abuse, uncomplicated; F43.10 Post-traumatic stress disorder, unspecified; F60.3 Borderline personality disorder; Z56.0 Unemployment, unspecified; R45.851 Suicidal ideations; F14.10 Cocaine abuse, uncomplicated; K59.00 Constipation, unspecified; E87.3 Alkalosis; F11.10 Opioid abuse, uncomplicated; F41.9 Anxiety disorder, unspecified; Z88.1 Allergy status to other antibiotic agents; Z88.8 Allergy status to other drugs, medicaments and biological substances; Z79.899 Other long term (current) drug therapy; Z81.8 Family history of other mental and behavioral disorders; Z91.51 Personal history of suicidal behavior
CPT/HCPCS: 80053; 80061; 80306; 81001; 82075; 83036; 84443; 85025; 85027; 87635; 99285

== ENCOUNTER 2025-06-03 02:34 | Emergency (ER) | payer OTHER ==
[2025-06-03 02:39] VITALS: TEMP 98
[2025-06-03] MEDS: diphenhydrAMINE 50 MG/ML 1 ML VIAL IM STA (03:39)
[2025-06-03] MEDS: methylPREDNISolone SOD SUCCI 125 MG/2 ML VIAL IM ONE (03:40)
[2025-06-03] MEDS: FAMOTIDINE 20 MG TAB PO STA (03:40)
--- NOTE | 2025-06-03 04:17 | ED ---
Allergic Reaction HPI - General Chief complaint: Allergic Reaction Stated complaint: Allergic reaction symptoms Time Seen by Provider: 06/03/25 03:04 Source: patient Mode of arrival: ambulatory Limitations: no limitations - History of Present Illness Initial Comments: 30-year-old male presenting with concerns for allergic reaction. Patient reports that symptoms started around 0100. States that it feels itchy and his lips feel a bit swollen. He is having no difficulty breathing or swallowing. He states that this has happened a few other times recently since starting a new job. He denies any rash or hives. No nausea, vomiting, diarrhea, abdominal pain. He denies any new food, medication, or other topical products. He does state that he also recently changed detergents. - Related Data Previous Rx's Medication Instructions Recorded ARIPiprazole [Abilify] 5 mg PO DAILY 30 Days #30 tab 03/14/25 Mirtazapine [Remeron] 45 mg PO HS 30 Days #30 tablet 03/14/25 Nicotine 14Mg/24Hr Patch [Habitrol] 1 patch TRANSDERM DAILY 14 Days 03/14/25 #14 patch Nicotine Gum (Polacrilex) 2 mg BUCCAL Q4HR PRN 30 Days #180 03/14/25 [Nicorette] pieceofgum Sennosides-Docusate Sodium 1 each PO BID 30 Days #60 tab 03/14/25 [Senokot-S] Sertraline [Zoloft] 50 mg PO DAILY 30 Days #30 tab 03/14/25 methylPREDNISolone [Medrol Dose 0 mg PO DIRECTED #1 packet 06/03/25 Pack] Allergies Allergy/AdvReac Type Severity Reaction Status Date / Time ceftriaxone sodium Allergy Swelling Verified 06/03/25 02:39 [From Rocephin] onion Allergy Unknown Verified 06/03/25 02:39 azithromycin AdvReac Unknown Verified 06/03/25 02:39 Childhood Review of Systems ROS Statement: Those systems with pertinent positive or pertinent negative responses have been documented in the HPI. ROS Other: All systems not noted in ROS Statement are negative. Past Medical History Past Medical History: No Reported History Additional Past Medical History / Comment(s): dali inguinal hernia-abd and groin pain History of Any Multi-Drug Resistant Organisms: None Reported Past Surgical History: Hernia Repair, Orthopedic Surgery Additional Past Surgical History / Comment(s): bilateral knee arthroscopies, for torn meniscus Past Anesthesia/Blood Transfusion Reactions: No Reported Reaction Additional Past Anesthesia/Blood Transfusion Reaction / Comment(s): no hx blood transfusion Past Psychological History: PTSD Smoking Status: Current every day smoker, Vaper Past Alcohol Use History: Occasional Past Drug Use History: Cocaine, Marijuana, Methamphetamine, Opiates - Past Family History Father Family Medical History: Myocardial Infarction (PR) Mother Family Medical History: Unable to Obtain Additional Family Medical History / Comment(s): Mother is 37 years old and has had problems with bowel surgeries, liver failure, bipolar disorder. Brother(s) Additional Family Medical History / Comment(s): Patient has 3 half brothers and 4 half-sisters. Patient states they all have bipolar disorder, schizophrenia or depression. he does not have any children of his own.2nd to youngest brother autistic General Exam Limitations: no limitations General appearance: alert, in no apparent distress Head exam: Present: atraumatic, normocephalic, normal inspection Eye exam: Present: normal appearance, EOMI. Absent: periorbital swelling ENT exam: Present: normal oropharynx, mucous membranes moist Neck exam: Present: normal inspection. Absent: meningismus Respiratory exam: Present: normal lung sounds bilaterally. Absent: respiratory distress, wheezes, rales, rhonchi, stridor Cardiovascular Exam: Present: regular rate, normal rhythm, normal heart sounds. Absent: systolic murmur, diastolic murmur, rubs, gallop, clicks Neurological exam: Present: alert, oriented X3 Psychiatric exam: Present: normal affect, normal mood Skin exam: Present: warm, dry, normal color Course Vital Signs 06/03/25 06/03/25 06/03/25 02:36 03:09 04:30 Temperature 98 F Pulse Rate 75 82 Respiratory 18 15 Rate Blood Pressure 131/78 130/81 O2 Sat by Pulse 98 100 Oximetry Medical Decision Making - Medical Decision Making Was pt. sent in by a medical professional or institution (, PA, COMMUNICATIONS PROFESSIONAL, urgent care, hospital, or jail...) When possible be specific @ -No Did you speak to anyone other than the patient for history (EMS, parent, family, police, friend...)? What history was obtained from this source @ -No Did you review nursing and triage notes (agree or disagree)? Why? @ -I reviewed and agree with nursing and triage notes Were old charts reviewed (outside hosp., previous admission, EMS record, old EKG, old radiological studies, urgent care reports/EKG's, jail records)? Report findings @ -No old charts were reviewed Differential Diagnosis (chest pain, altered mental status, abdominal pain women, abdominal pain men, vaginal bleeding, weakness, fever, dyspnea, syncope, headache, dizziness, GI bleed, back pain, seizure, CVA, palpatations, mental health, musculoskeletal)? @ -Differential includes general allergic reaction, anaphylaxis, cellulitis, not long close of last EKG interpreted by me (3pts min.). @ -As above X-rays interpreted by me (1pt min.). @ -None done CT interpreted by me (1pt min.). @ -None done U/S interpreted by me (1pt. min.). @ -None done What testing was considered but not performed or refused? (CT, X-rays, U/S, labs)? Why? @ -None What meds were considered but not given or refused? Why? @ -None Did you discuss the management of the patient with other professionals (professionals i.e. , PA, COMMUNICATIONS PROFESSIONAL, lab, RT, psych nurse, social work job titles, oven operator automatic, teacher, worldwide chief creative officer, case advocate)? Give summary @ -No Was smoking cessation discussed for >3mins.? @ -No Was critical care preformed (if so, how long)? @ -No Were there social determinants of health that impacted care today? How? (Homelessness, low income, unemployed, alcoholism, drug addiction, transportation, low edu. Level, literacy, decrease access to med. care, retirement, rehab)? @ -No Was there de-escalation of care discussed even if they declined (Discuss DNR or withdrawal of care, Hospice)? DNR status @ -No What co-morbidities impacted this encounter? (DM, HTN, Smoking, COPD, CAD, Cancer, CVA, ARF, Chemo, Hep., AIDS, mental health diagnosis, sleep apnea, morbid obesity)? @ -None Was patient admitted / discharged? Hospital course, mention meds given and route, prescriptions, significant lab abnormalities, going to OR and other pertinent info. @ -30-year-old male presenting with concerns for allergic reaction. He feels like his lips are swollen and he feels itchy all over. No obvious rash. There is no obvious signs of any angioedema or swelling of the lips face or tongue. Heart and lungs are clear to auscultation. No signs of distress. He is given Benadryl Pepcid and Solu-Medrol. On reassessment he reports some improvement. He is educated on today's findings. He is encouraged to switch back to his regular detergent. He also states he is going to try wearing a mask while at work to see if this helps with his symptoms, believes that they may be due to starting his new job at a [employer] facility. Follow-up with PCP. Report back to ER with any new or worsening symptoms. Discussed return parameters and answered all questions. Patient conveyed verbal understanding and agreed to the plan. I discussed this case in detail with my attending Dr. Rae Undiagnosed new problem with uncertain prognosis? @ -No Drug Therapy requiring intensive monitoring for toxicity (Heparin, Nitro, Insul in, Cardizem)? @ -No Were any procedures done? @ -No Diagnosis/symptom? @ -Allergic reaction Acute, or Chronic, or Acute on Chronic? @ -Acute Uncomplicated (without systemic symptoms) or Complicated (systemic symptoms)? @ -Uncomplicated Side effects of treatment? @ -No Exacerbation, Progression, or Severe Exacerbation? @ -No Poses a threat to life or bodily function? How? (Chest pain, [place], PR, pneumonia, PE, COPD, DKA, ARF, appy, cholecystitis, CVA, Diverticulitis, Homicidal, Suicidal, threat to staff... and all critical care pts) @ -Unlikely Disposition Clinical Impression: Allergic reaction Disposition: HOME SELF-CARE Condition: Good Instructions (If sedation given, give patient instructions): General Allergic Reaction (ED) Additional Instructions: Follow-up with PCP. Report back to ER with any new or worsening symptoms. Take Benadryl as needed. Consider wearing a mask at work to see if this helps reduce your symptoms. Switch bacterial detergent to see if this helps reduce your symptoms. Prescriptions: methylPREDNISolone [Medrol Dose Pack] 0 mg PO DIRECTED #1 packet Is patient prescribed a controlled substance at d/c from ED?: No Referrals: None,Stated [Primary Care Provider] - 1-2 days Forms: Area PCPs Time of Disposition: 04:17
[2025-06-03 04:31] VITALS: BP 130/81; PULSE 82; RESP 15
== END 2025-06-03 04:30 | disposition home or self-care (01) ==
LOC: EC 02:34
DX: L29.9 Pruritus, unspecified (principal); F17.290 Nicotine dependence, other tobacco product, uncomplicated; Z88.1 Allergy status to other antibiotic agents; Z91.018 Allergy to other foods
CPT/HCPCS: 99283; 96372 ×2; J1200; J2919